=== PATIENT | female | born 1965 | race Caucasian/White ===

== ENCOUNTER 2016-05-31 11:59 | Inpatient (IN) | payer OTHER ==
[~2016-05-31] VITALS: Ht 154.9 cm; Wt 59.6 kg
[2016-05-31] MEDS ORDERED: morphine 4 MG/ML VIAL IV STA (15:18)
[2016-05-31] MEDS ORDERED: ONDANSETRON 4 MG INJ IV STA (15:18)
[2016-05-31] MEDS ORDERED: SOD CHLORIDE 0.9% 1,000 ML IV STA ×2 (15:18→16:32)
[2016-05-31 15:44] LABS: ADD SCAN DIFF NO
[2016-05-31 15:58] LABS: ALBUMIN 3.5 g/dl (3.3-4.9)
[2016-05-31 15:59] LABS: BASOPHILS % 0.2 % (0.0-2.0); EOSINOPHILS # 0.1 10^3/ul (0.0-0.5); EOSINOPHILS % 0.9 % (0.0-7.0); HEMATOCRIT 36.2 % (37.0-47.0); HEMOGLOBIN 11.8 g/dl (12.0-16.0); LYMPHOCYTES # 1.6 10^3/ul (0.8-2.9); LYMPHOCYTES % 19.7 % (15.0-51.0); MEAN CORPUSCULAR HGB CONC 32.6 g/dl (32.0-37.0); MEAN CORPUSCULAR VOLUME 82.8 fl (82.0-101.0); MEAN PLATELET VOLUME 10.7 fl (7.4-10.4); MONOCYTE # 0.5 10^3/ul (0.3-0.9); MONOCYTES % 6.5 % (0.0-11.0); NEUTROPHIL # 5.8 10^3/ul (1.6-7.5); NEUTROPHILS % 72.2 % (39.0-77.0); PLATELET COUNT 246 10^3/UL (140-415); POTASSIUM 4.6 mmol/L (3.5-5.1); RED BLOOD COUNT 4.37 10^6/ul (4.20-5.40); RED CELL DISTRIBUTION WIDTH 12.8 % (11.5-14.5)
[2016-05-31 16:01] LABS: ALBUMIN/GLOBULIN RATIO 0.77; BILIRUBIN,INDIRECT 0.1 mg/dl (0-1.1); BILIRUBIN,TOTAL 0.1 mg/dl (0.2-1.3); CREATININE 0.99 mg/dl (0.44-1.00)
[2016-05-31 16:12] LABS: ADD UMIC YES; URINE BILIRUBIN (Dip) NEGATIVE (NEGATIVE); URINE BLOOD (Dip) 1+ (NEGATIVE); URINE COLOR LT. YELLOW (YELLOW); URINE GLUCOSE (Dip) >=1000 % (NEGATIVE); URINE KETONES (Dip) NEGATIVE (NEGATIVE); URINE LEUKOCYTE ESTERASE (Dip) 1+ (NEGATIVE); URINE NITRITE (Dip) NEGATIVE (NEGATIVE); URINE TOTAL PROTEIN (Dip) 2+ (NEGATIVE); URINE UROBILINOGEN (Dip) 0.2 E.U./dL (0.1-1.0)
[2016-05-31] MEDS ORDERED: SOD CHLORIDE 0.9% 100 ML ONE (16:23)
[2016-05-31] MEDS ORDERED: IOHEXOL 300MG/ML 150 ML BTL ONE (16:23)
[2016-05-31] MEDS ORDERED: INSULIN LISPRO 100 UNIT/ML VIAL SC STA (16:32)
[2016-05-31 16:38] LABS: BACTERIA,URINE FEW; SQUAMOUS EPITHELIAL CELL,UR MODERATE
--- NOTE | 2016-05-31 16:54 | RADRPT ---
PROCEDURE: CT Abdomen and Pelvis with contrast. CLINICAL INDICATION: Abdomen and pelvis pain. Diabetes. TECHNIQUE: CT scan of the abdomen and pelvis with contrast was performed. The patient was scanned following the uncomplicated intravenous administration of 90 cc of Omnipaque-300. Coronal and sagit javed reformatted images were obtained from the axial source images. Images were reviewed on a [employer] PACS workstation. Total exam DLP is 361.99 mGy-cm. CTDIvol is 6.55 mGy. One or more of t he following dose reduction techniques were used: Automated exposure control, adjustment of the mA a nd/or kV according to patient size, use of iterative reconstruction technique. COMPARISON: None. FINDINGS: The lung bases are normal. There is no pleural effusion. The liver is normal in size and attenuation. There is no focal hepatic lesion. The gallbladder is surgically absent with clips noted in the gallbladder bed. There is mild diffuse biliary dilatation with no obstructing lesion visualized. The spleen is normal in size. There is no focal splenic lesion. Both adrenals are normal with no enlargement or mass. There is a cystic structure in the tail of the pancreas measuring 2.6 x 3.1 cm in AP and transverse dimensions with mild surrounding enhancement. The pancreas is otherwise unremarkable. Both kidneys demonstrate normal contrast enhancement. There is gas in the collecting system of the left kidney. There is no renal mass or hydronephrosis. The abdominal aorta is not dilated. There is no retroperitoneal lymphadenopathy or mass. There is no pelvic lymphadenopathy or mass. There is gas within the urinary bladder. There is no gas in the wall of the bladder. The appendix is well seen and appears normal. The bowel and mesentery are normal. There is no free fluid or free gas. There are mild degenerative changes of the spine. There is no fracture or lytic lesion. IMPRESSION: 1. Status post cholecystectomy. 2. Mild diffuse biliary dilatation. Clinical correlation advised. 3. Cystic structure with surrounding enhancement in the tail of the pancreas measuring 2.6 x 3.1 cm . This may be due to a cystic neoplasm or pseudocyst. Clinical correlation advised. 4. Gas in the collecting system of the left kidney and in the bladder consistent with probable emph ysematous pyelonephritis. 5. Normal appendix. 6. Mild degenerative changes of the spine. 7. Otherwise unremarkable study. RPTAT: QQ .Ivan Carlos MD, MD Date Time Electronically viewed and signed by .Ivan Carlos MD, MD on 05/31/2016 16:54 .R/
[2016-05-31] MEDS ORDERED: LEVOFLOXACIN 750MG/D5W (PMX) 150 ML IVPB ONE (17:00)
[2016-05-31] MEDS ORDERED: CEFEPIME 1GM/50 ML (PMX) 50 ML IVPB ONE (17:00)
--- NOTE | 2016-05-31 17:27 | ERA ---
ER Documentation Chief Complaint Date/Time DATE: 05/31/16 TIME: 17:24 Chief Complaint AP, diarrhea, vomiting x 2 days. HPI This is a 50-year-old female with multiple medical complaints. The patient is complaining of 2 days of nausea vomiting with loose stool all nonbloody. Is also complaining of some left flank pain and left mid abdominal pain with dysuria and urinary frequency. No gross hematuria. She says she feels chills and malaise but has not documented a fever. No chest pain shortness of breath cough. ROS All systems reviewed and are negative except as per history of present illness. Medications Home Meds Unable to Obtain Active Prescriptions or Reported Meds Allergies Allergies: Coded Allergies: Unknown: Unable to obtain (Unverified , 05/31/16) PMhx/Soc Medical and Surgical Hx: pt denies Medical Hx, pt denies Surgical Hx Hx Alcohol Use: No Hx Substance Use: No Hx Tobacco Use: No Smoking Status: Never smoker FmHx Family History: No coronary disease Physical Exam Vitals Vital Signs Date Time Temp Pulse Resp B/P Pulse Ox O2 Delivery O2 Flow Rate FiO2 05/31/16 12:26 98.5 93 18 92/59 99 Physical Exam Const: Well-developed, well-nourished Head: Atraumatic, normocephalic Eyes: Normal Conjunctiva, PERRLA, EOMI, normal sclera, no nystagmus ENT: Normal External Ears, Nose and Mouth, moist mucus membranes. Neck: Full range of motion. No meningismus, no lymphadenopathy. Resp: Clear to auscultation bilaterally, no wheezing, rhonchi, rales Cardio: Regular rate and rhythm, no murmurs, S1 S2 present Abd: Soft, mild to moderate tenderness in the left flank and left mid abdomen, non distended. Normal bowel sounds, no guarding or rebound, no pulsitile abdominal masses or bruits Skin: No petechiae or rashes, no ecchymosis , no maculopapular rash Back: No midline or flank tenderness Ext: No cyanosis, or edema, FROM x 4, normal inspection, neurovascularly intact x 4 Neur: Awake and alert, STR 5/5 x 4, sensation intact x 4, no focal findings, cerebellum intact Psych: Normal Mood and Affect Result Diagram: 05/31/16 1542 05/31/16 1542 Results 24 hrs Laboratory Tests Test 05/31/16 14:55 05/31/16 15:42 Urine Bacteria FEW Urine Bilirubin NEGATIVE Urine Clarity SLIGHTLY CLOUDY Urine Color LT. YELLOW Urine Glucose >=1000% Urine Hemoglobin 1+ Urine Ketones NEGATIVE Urine Leukocyte Esterase 1+ Urine Microscopic RBC 2-5/HPF Urine Microscopic WBC >50/HPF Urine Nitrite NEGATIVE Urine Specific Friant <=1.005 Urine Squamous Epithelial Cells MODERATE Urine Total Protein 2+ Urine Urobilinogen 0.2 E.U./dL Urine pH 6.0 Alanine Aminotransferase (ALT/SGPT) 97IU/L Albumin 3.5g/dl Albumin/Globulin Ratio 0.77 Alkaline Phosphatase 149IU/L Anion Gap 14 Aspartate Amino Transf (AST/SGOT) 87IU/L Basophils # 0.010^3/ul Basophils % 0.2% Blood Urea Nitrogen 19mg/dl Calcium Level 9.0mg/dl Carbon Dioxide Level 32mmol/L Chloride Level 85mmol/L Creatinine 0.99mg/dl Direct Bilirubin 0.00mg/dl Eosinophils # 0.110^3/ul Eosinophils % 0.9% Globulin 4.50g/dl Glucose Level 640mg/dl Hematocrit 36.2% Hemoglobin 11.8g/dl Indirect Bilirubin 0.1mg/dl Lymphocytes # 1.610^3/ul Lymphocytes % 19.7% Mean Corpuscular Hemoglobin 27.0pg Mean Corpuscular Hemoglobin Concent 32.6g/dl Mean Corpuscular Volume 82.8fl Mean Platelet Volume 10.7fl Monocytes # 0.510^3/ul Monocytes % 6.5% Neutrophils # 5.810^3/ul Neutrophils % 72.2% Nucleated Red Blood Cells # 0.010^3/ul Nucleated Red Blood Cells % 0.0/100WBC Platelet Count 21894^3/UL Potassium Level 4.6mmol/L Red Blood Count 4.3710^6/ul Red Cell Distribution Width 12.8% Sodium Level 126mmol/L Total Bilirubin 0.1mg/dl Total Protein 8.0g/dl White Blood Count 8.010^3/ul Current Medications Medications (Trade) Dose Ordered Sig/Wilson Route PRN Reason Start Time Stop Time Status Last Admin Dose Admin Sodium Chloride (NS) 1,000 ml @ 1,000 mls/hr Q1H STAT IV 05/31/16 15:18 05/31/16 16:17 DC 05/31/16 15:45 Morphine Sulfate (morphine) 4 mg ONCE STAT IV 05/31/16 15:18 05/31/16 15:19 DC 05/31/16 15:44 Ondansetron HCl (Zofran Inj) 4 mg ONCE STAT IV 05/31/16 15:18 05/31/16 15:19 DC 05/31/16 15:44 IV Flush 10 ml 10 ml STK-MED ONCE .ROUTE 05/31/16 16:23 05/31/16 16:24 DC 05/31/16 16:40 Sodium Chloride (NS) 100 ml @ ud STK-MED ONCE .ROUTE 05/31/16 16:23 05/31/16 16:24 DC 05/31/16 16:40 Iohexol 150 ml 150 ml STK-MED ONCE .ROUTE 05/31/16 16:23 05/31/16 16:24 DC 05/31/16 16:41 Sodium Chloride (NS) 1,000 ml @ 1,000 mls/hr Q1H STAT IV 05/31/16 16:32 05/31/16 17:31 Insulin Human Lispro 12 unit 12 unit ONCE STAT SC 05/31/16 16:32 05/31/16 16:34 DC Levofloxacin/ Dextrose 150 ml @ 100 mls/hr ONCE ONCE IVPB 05/31/16 17:00 05/31/16 18:29 Cefepime HCl (Maxipime 1gm/50 ml (Pmx)) 50 ml @ 100 mls/hr ONCE ONCE IVPB 05/31/16 17:00 05/31/16 17:29 Procedures/MDM PROCEDURE: CT Abdomen and Pelvis with contrast. CLINICAL INDICATION: Abdomen and pelvis pain. Diabetes. TECHNIQUE: CT scan of the abdomen and pelvis with contrast was performed. The patient was scanned following the uncomplicated intravenous administration of 90 cc of Omnipaque-300. Coronal and sagittal reformatted images were obtained from the axial source images. Images were reviewed on a high-resolution PACS workstation. Total exam DLP is 361.99 mGy-cm. CTDIvol is 6.55 mGy. One or more of the following dose reduction techniques were used: Automated exposure control, adjustment of the mA and/or kV according to patient size, use of iterative reconstruction technique. COMPARISON: None. FINDINGS: The lung bases are normal. There is no pleural effusion. The liver is normal in size and attenuation. There is no focal hepatic lesion. The gallbladder is surgically absent with clips noted in the gallbladder bed. There is mild diffuse biliary dilatation with no obstructing lesion visualized. The spleen is normal in size. There is no focal splenic lesion. Both adrenals are normal with no enlargement or mass. There is a cystic structure in the tail of the pancreas measuring 2.6 x 3.1 cm in AP and transverse dimensions with mild surrounding enhancement. The pancreas is otherwise unremarkable. Both kidneys demonstrate normal contrast enhancement. There is gas in the collecting system of the left kidney. There is no renal mass or hydronephrosis. The abdominal aorta is not dilated. There is no retroperitoneal lymphadenopathy or mass. There is no pelvic lymphadenopathy or mass. There is gas within the urinary bladder. There is no gas in the wall of the bladder. The appendix is well seen and appears normal. The bowel and mesentery are normal. There is no free fluid or free gas. There are mild degenerative changes of the spine. There is no fracture or lytic lesion. IMPRESSION: 1. Status post cholecystectomy. 2. Mild diffuse biliary dilatation. Clinical correlation advised. 3. Cystic structure with surrounding enhancement in the tail of the pancreas measuring 2.6 x 3.1 cm. This may be due to a cystic neoplasm or pseudocyst. Clinical correlation advised. 4. Gas in the collecting system of the left kidney and in the bladder consistent with probable emphysematous pyelonephritis. 5. Normal appendix. 6. Mild degenerative changes of the spine. 7. Otherwise unremarkable study. RPTAT: QQ .Ivan Carlos MD, Date Time Electronically viewed and signed by .Ivan Carlos MD, on 05/31/2016 16:54 .R/ CC: SHERI MARTIN DO Patient received IV fluids and antibiotics due to her emphysematous pyelonephritis of the left renal collecting system. Urinalysis is UTI We will admit to the hospital for workup and care of the above Departure Diagnosis: Primary Impression: Emphysematous pyelonephritis of left kidney Condition: Stable SHERI MARTIN DO May 31, 2016 17:27
[2016-05-31] MEDS ORDERED: Discontinue Glyburide, Glipizide, and/or Glimepiride prior to starting Insulin XX ONE (18:30)
[2016-05-31] MEDS ORDERED: NACL 0.9% 3 ML SYG IV SCH (18:30)
[2016-05-31] MEDS ORDERED: BISACODYL (EC) 5 MG TAB PO PRN (18:30)
[2016-05-31] MEDS ORDERED: [UNRECOGNIZED DRUG - REMARK] XX ONE (18:30)
[2016-05-31] MEDS ORDERED: GLUCOSE GEL 15 GRAM TUBE PO PRN ×2 (19:00)
[2016-05-31] MEDS: LEVOFLOXACIN 500MG/D5W (PMX) 100 ML IVPB SCH ×2 (19:00→22:33)
[2016-05-31] MEDS ORDERED: GLUCAGON 1 MG INJ IM PRN (19:00)
[2016-05-31] MEDS ORDERED: DEXTROSE 50% 50 ML SYRINGE IV PRN ×2 (19:00)
[2016-05-31] MEDS ORDERED: GLUCOSE GEL 15 GRAM TUBE BUCCAL PRN (19:00)
--- NOTE | 2016-05-31 19:41 | HP ---
DATE OF ADMISSION: 05/31/2016 TIME OF EVALUATION: 1800. REASON FOR ADMISSION: Abdominal pain, diarrhea, vomiting, dysuria for the past 2 days. CONSULTATIONS: 1. Dr. Guy Cavanaugh, Urology. 2. Dr. Navid Blanco, Infectious Disease. 3. Dr. Lul Rebolledo, General Surgery. HISTORY OF PRESENT ILLNESS: This is a 50-year-old female with past medical history of type 2 diabetes mellitus who also takes insulin for her diabetes control who came to the emergency room with a chief complaint of 2 days of abdominal pain, diarrhea, nonbloody, nonbilious vomiting; dysuria, urinary frequency, fevers, chills, malaise, and poor oral intake. The patient verbalized that she has not been using her insulin for the past 2 days. The patient verbalized that she was using her metformin, though. The patient denied any sick contacts. The patient denied any dyspnea, cough, or shortness of breath. The patient was complaining of bilateral lower extremity cramping. In the emergency room, the patient underwent a CT scan of the abdomen and pelvis that showed a cystic structure with surrounding enhancement in the tail of the pancreas measuring 2.6 x [address] also revealed gas in the collecting system of the left kidney and in the bladder consistent with probable emphysematous pyelonephritis. The patient's urinalysis showed positive leukocyte esterase with urine microscopic WBC of greater than 50. The patient was noticed to have a serum blood glucose of 640. The patient's sodium was 126. In the emergency room, the patient was treated with IV levofloxacin and IV hydration. The patient was also given analgesics and a single dose of Humulin insulin subcutaneous insulin. The ER physician called urology panel for urology evaluation. PAST MEDICAL HISTORY: Type 2 diabetes. PAST SURGICAL HISTORY: Cholecystectomy, . HOME MEDICATIONS: 1. Metformin 500 mg p.o. b.i.d. before breakfast and dinner. 2. Lantus insulin 20 units subcutaneously at bedtime. 3. Humalog insulin 10 units before meals. ALLERGIES: PENICILLIN. SOCIAL HISTORY: The patient lives at home with her family. Denies any use of tobacco, alcohol, or illicit drug use. REVIEW OF SYSTEMS: A 12-point review of systems were made and the review of systems are negative other than what is mentioned in the history of present illness. PHYSICAL EXAMINATION: VITAL SIGNS: Temperature 98.5, pulse rate 87, respiratory rate 14, blood pressure 154/82, oxygen saturation 99% on room air. GENERAL: This is an adequately built female lying in bed in no apparent distress. HEENT: Head normocephalic and atraumatic. Eyes: Anicteric sclerae. Conjunctivae clear. ENT: Nasal septum is midline. Oral mucosa is dry. NECK: Supple. No JVD noticed. RESPIRATORY: Bilaterally clear to auscultation. No adventitious breath sounds heard. No use of accessory muscles of respiration. CARDIAC: Regular rate and rhythm. No murmurs heard. ABDOMEN: Soft. Diffuse tenderness in the left lower quadrant and left upper quadrant. No guarding. GENITOURINARY: Left CVA tenderness. EXTREMITIES: No cyanosis, no clubbing, no edema. Peripheral pulses are palpable. NEUROLOGIC: The patient is awake, alert, and oriented. Cranial nerves are grossly intact. LABORATORY AND DIAGNOSTIC DATA: WBC 8.0, hemoglobin 11.8, hematocrit 36.2, platelet count 246. Sodium 136, potassium 4.6, chloride 85, carbon dioxide 32, anion gap 14, BUN 19, creatinine 0.99, glucose 640, calcium 9.0. Total bilirubin 0.1, AST 87, ALT 97, alkaline phosphatase 149. Urinalysis: Urine nitrite negative, leukocyte esterase 1+, urine microscopic WBC greater than 50, urine glucose greater than 1000, urine total protein 2+. CT scan of the abdomen and pelvis: Status post cholecystectomy. Mild diffuse biliary dilatation. The cystic structure with surrounding enhancement in the tail of the pancreas measuring 2.6 x 3.1 cm. This may be due to cystic neoplasm or pseudocyst. Gas in the collecting system of the left kidney and the bladder consistent with probable emphysematous pyelonephritis. Normal appendix. IMPRESSION: This is a 50-year-old female with past medical history of type 2 diabetes mellitus who came to the emergency room with chief complaint of abdominal pain, dysuria, subjective fevers, chills and she was also found to have evidence of urinary tract infection, possible emphysematous pyelonephritis , along with uncontrolled blood sugars, who will be admitted here for further treatment and evaluation. ASSESSMENT AND PLAN: 1. Suspect urinary tract infection with possible underlying emphysematous pyelonephritis on the left side. The patient will be started on empiric antibiotics. Pancultures will be obtained. The patient will be evaluated by Urology. Infectious disease consult will be called on this patient. The patient currently has no evidence of any septic shock. 2. Abdominal pain. Etiology unclear. Abdominal CT scan showing a 2.6 x 3.1 cm cystic structure in the tail of the pancreas. Pseudocyst versus neoplasm. Pancreatic enzymes levels will be obtained on this patient. A general surgery consult will be obtained on this patient. Stool studies will be ordered on this patient. 3. Type 2 diabetes mellitus, uncontrolled. No evidence of any ketoacidosis. The patient's blood glucose will be treated appropriately. She will be started on sliding scale insulin along with Lantus insulin and basal insulin. Diabetic education consult will be obtained. 4. Transaminitis. Etiology unclear. Will obtain hepatitis serology. We will trend the patient's LFTs. Hepatotoxic drugs will be avoided on this patient. 5. Hyponatremia. Etiology unclear. Probably secondary to urine sodium loss. Urine sodium level will be obtained. The patient will be started on IV normal saline. The patient's sodium will be corrected gradually. PLAN: The patient will be admitted to inpatient setting. The patient will be started on DVT prophylaxis and gastrointestinal prophylaxis. The patient will remain a FULL CODE. Activities will be as tolerated. The rest of the patient's management will be based on the clinical course, the results of diagnostic studies, and inputs from consultants. Based on the patient's clinical presentation, she most probably requires at least 2 midnights' stay for further management and evaluation of her clinical presentation. The case and management of this patient was fully discussed with Dr. Zepeda. Approximately 60 minutes was spent on the history and physical on this patient. RICHELLE ZEPEDA MD, AM/GIORGIO Conf#: [id number] DID#: [id number]
[2016-05-31] MEDS ORDERED: SOD CHLORIDE 0.9% 1,000 ML IV SCH (19:43)
[2016-05-31 19:44] LABS: THYROID STIMULATING HORMONE 1.78 MIU/L (0.465-4.680)
[2016-05-31] MEDS ORDERED: ACETAMINOPHEN 325 MG TAB PO PRN (20:00)
[2016-05-31] MEDS ORDERED: ONDANSETRON 4 MG INJ IV PRN (20:00)
[2016-05-31] MEDS ORDERED: INSULIN GLARGINE [LANtus] 3 ML PEN SC SCH (20:00)
--- NOTE | 2016-05-31 20:29 | CONS ---
DATE OF ADMISSION: 05/31/2016 DATE OF CONSULTATION: 05/31/2016 TYPE OF CONSULTATION: Infectious Disease. REASON FOR CONSULTATION: Antibiotic management. HISTORY OF PRESENT ILLNESS: Misa Davenport is a 50-year-old female with multiple problems who comes in with nausea, vomiting, diarrhea for 2 days. She is complaining of left flank pain and left mid abdominal pain as well as dysuria and urinary frequency. She has chills, but no fever. She denies any history of high blood pressure, diabetes, heart disease or previous surgeries. On admission, he r white count is 8.0, H and H 11.8 and 36.2, platelet count 246,000. BUN and creatinine 19/0.99. H er glucose was 640, so she is way out of control. PAST MEDICAL HISTORY: As noted. FAMILY HISTORY: Noncontributory. SOCIAL HISTORY: She does not smoke, drink or abuse drugs. ALLERGIES: NONE TO PENICILLIN, SULFA OR FOODS. MEDICATIONS: Per chart. REVIEW OF SYSTEMS: As per HPI. PHYSICAL EXAMINATION: GENERAL: The patient is a well-developed, well-nourished female who is alert, responsive, in no acu te distress. VITAL SIGNS: Stable. She is afebrile. SKIN: Without generalized rash. HEENT: Within normal limits. NECK: Supple. LYMPH NODES: None palpable. CHEST: Decreased breath sounds at the bases. HEART: Without murmur or gallop. ABDOMEN: Soft, nontender. She has some mild tenderness in the left flank, left mid abdomen. She h as no organosplenomegaly or masses. EXTREMITIES: Without cyanosis, clubbing, or edema. RECTAL AND GENITAL: Deferred. NEUROLOGIC: No focal neurological abnormalities. Her urinalysis shows 1+ leukocyte esterase, negat tone nitrite, greater than 50 white cells per high-power field. IMPRESSION AND PLAN: She therefore comes in with diabetes out of control and urinary tract infectio n, possible urosepsis. She was started on Levaquin and cefepime. A CT scan of the abdomen and pelv is shows status post cholecystectomy, mild diffuse biliary dilatation, cystic structures with surrou nding enhancement near the tail of the pancreas measuring 2.6 x 3.1, which may be due to a cystic ne oplasm or pseudocyst. Gas in the collecting system of the left kidney consistent with emphysematous pyelonephritis, normal appendix. The patient had Clostridium difficile calcific carcinoembry onic antigen, alphafetoprotein. She had 2 sets of blood cultures done. She had a urine culture ord ered. We will continue her on this current coverage for the time being. I will dictate my findings to the hospitalist. Dictated By: FAUSTINO HERNANDEZ MD, JD/GIORGIO Conf#: [id number] DID#: [id number]
[2016-05-31] MEDS: INSULIN ASPART [NOVOLOG] 3 ML PEN SC SCH (21:00)
[2016-05-31 21:14] VITALS: TEMP 99.8
[2016-05-31 21:30] VITALS: BP 151/72; PULSE 77; RESP 20
[2016-05-31 21:31] VITALS: PULSE 90
[2016-05-31 22:00] VITALS: Ht 154.9 cm; Wt 59.6 kg
[2016-05-31] MEDS: morphine 2 MG INJ IV PRN (22:29)
[2016-05-31] MEDS: ONDANSETRON 4 MG INJ IV PRN (22:29)
[2016-05-31] MEDS: FAMOTIDINE 20 MG TAB PO SCH (22:33)
[2016-05-31] MEDS: SOD CHLORIDE 0.9% 1,000 ML IV SCH (23:02)
[2016-06-01] VITALS (11 sets, daily range): BP systolic 116–152; BP diastolic 62–76; PULSE 72–90; RESP 18–20
[2016-06-01] MEDS ORDERED: LORAZEPAM 2 MG INJ IV ONE (01:30)
[2016-06-01] MEDS: ACCUCHECK AT 2AM (Patients on SS coverage) XX SCH (02:00)
[2016-06-01] MEDS: SOD CHLORIDE 0.9% 1,000 ML IV SCH ×3 (02:21→17:57)
[2016-06-01 07:41] LABS: ADD SCAN DIFF NO; HAAIG REFLEX REFLEX FILED
[2016-06-01 07:56] LABS: BASOPHILS % 0.5 % (0.0-2.0); EOSINOPHILS # 0.1 10^3/ul (0.0-0.5); EOSINOPHILS % 1.4 % (0.0-7.0); HEMATOCRIT 31.1 % (37.0-47.0); HEMOGLOBIN 10.1 g/dl (12.0-16.0); LYMPHOCYTES # 1.6 10^3/ul (0.8-2.9); MEAN CORPUSCULAR HEMOGLOBIN 27.2 pg (29.0-33.0); MEAN CORPUSCULAR HGB CONC 32.5 g/dl (32.0-37.0); MEAN CORPUSCULAR VOLUME 83.6 fl (82.0-101.0); MEAN PLATELET VOLUME 10.6 fl (7.4-10.4); MONOCYTE # 0.4 10^3/ul (0.3-0.9); MONOCYTES % 7.6 % (0.0-11.0); NEUTROPHIL # 3.7 10^3/ul (1.6-7.5); PLATELET COUNT 214 10^3/UL (140-415); RED BLOOD COUNT 3.72 10^6/ul (4.20-5.40); RED CELL DISTRIBUTION WIDTH 12.8 % (11.5-14.5); WHITE BLOOD COUNT 5.8 10^3/ul (4.8-10.8)
[2016-06-01 08:00] LABS: ALBUMIN 2.6 g/dl (3.3-4.9)
[2016-06-01] MEDS ORDERED: INSULIN ASPART [NOVOLOG] 3 ML PEN SC SCH (08:00)
[2016-06-01 08:01] LABS: INR 1.01; POTASSIUM 4.8 mmol/L (3.5-5.1); PROTIME 13.3 Sec (12.2-14.2)
[2016-06-01 08:02] LABS: PARTIAL THROMBOPLASTIN TIME 28.5 Sec (25.0-35.0)
[2016-06-01 08:03] LABS: ALBUMIN/GLOBULIN RATIO 0.74; BILIRUBIN,INDIRECT 0.1 mg/dl (0-1.1); BILIRUBIN,TOTAL 0.1 mg/dl (0.2-1.3); CALCIUM 7.7 mg/dl (8.4-10.2); CHOL/HDL RATIO 4.9 RATIO; CREATININE 0.96 mg/dl (0.44-1.00); MAGNESIUM 1.7 mg/dl (1.7-2.5); TOTAL PROTEIN 6.1 g/dl (6.1-8.1)
[2016-06-01] MEDS: FAMOTIDINE 20 MG TAB PO SCH ×2 (08:51→20:46)
[2016-06-01 08:52] LABS: HEPATITIS B CORE ANTIBODY NEGATIVE (NEGATIVE)
[2016-06-01] MEDS: INSULIN ASPART [NOVOLOG] 3 ML PEN SC SCH ×7 (08:52→20:49)
--- NOTE | 2016-06-01 11:30 | RADRPT ---
PROCEDURE: Retroperitoneal US. CLINICAL INDICATION: Pain, emphysematous pyelonephritis TECHNIQUE: Multiple sonographic images of the kidneys and retroperitoneum were obtained. The imag es were reviewed on a PACS workstation. COMPARISON: 05/31 FINDINGS: The kidneys are normal in size, contour, cortical thickness and cortical echogenicity. The right kidney measures 11.6 cm. The left kidney measures 12 cm. No kidney stones are visualized. There is mild left-sided hydronephrosis. The urinary bladder is only partially distended and not well seen. The visualized portions of the aorta and IVC are within normal limits. RPTAT: AA IMPRESSION: Mild left-sided hydronephrosis. .John Apple MD, MD Date Time Electronically viewed and signed by .John Apple MD, MD on 06/01/2016 11:29 .S/
--- NOTE | 2016-06-01 13:01 | PN ---
Date/Time of Note Date/Time of Note DATE: 06/01/16 TIME: 12:52 Assessment/Plan Lines/Catheters IV Catheter Type (from [facility]): Peripheral IV Ghosh in Place (from [facility]): No Assessment/Plan Chief Complaint/Hosp Course 1. Abdominal pain. DDx: Emphesematous left side pyelonephritis with UTI vs Pancreatic cystic lesion -abx -ID -supportive -w/u of pancreatic lesion 2. Pancreatic 3.1cm cystic tail lesion. DDx: Pseudocyst (hx of ? pancreatitix in 2003) vs serous cystadenoma vs mucinous cystic neoplasm, vs IPMN -MRI with contrast -obtain records from previous hospital 3. DM -nutrition and medication optimization 4. Transaminitis with Hep C + Antibody -gi and medical optimization -monitor trend 5. Anemia -monitor 6. Hyponatremia, hyperglycemia -judicious fluid management -insulin tx -possible bicarb -close monitoring Thank you, Dictation #: [id number] Problems: Subjective 24 Hr Interval Summary No f/c. No n/v. No cp/sob. No cough. No valdovinos/dizzy/visual or neuro changes. Dysuria. Abdominal pain improved. Exam/Review of Systems Vital Signs Vitals Vital Signs Date Time Temp Pulse Resp B/P Pulse Ox O2 Delivery O2 Flow Rate FiO2 06/01/16 12:39 76 06/01/16 08:00 98.2 18 141/76 98 Room Air Intake and Output 05/31/16 05/31/16 06/01/16 15:00 23:00 07:00 Intake Total 2200 ml 1100 ml Balance 2200 ml 1100 ml Exam Constitutional: alert, oriented, No distress Psych: nl mood/affect, No anxiety Head: atraumatic, normocephalic Eyes: EOMI, PERRL, nl conjunctiva, No icteric ENMT: mucosa pink and moist, nl external ears & nose, nl lips & teeth Neck: non-tender, supple, No jvd Respiratory: normal air movement, No congested cough, No labored breathing Cardiovascular: regular rate and rhythm, No edema Gastrointestinal: soft, tender (Min in left side), No distended, No rebound or guarding Musculoskeletal: nl extremities to inspection, nl gait and stance, No joint tenderness Extremities: normal pulses, No calf tenderness, No cyanosis Neurological: nl mental status, nl speech, nl strength Skin: nl turgor, No diaphoresis, No rash or lesions Lymph: nl lymph nodes Results Result Diagram: 06/01/16 0550 06/01/16 0550 HARRISON MEIER MD Jun 01, 2016 13:01
--- NOTE | 2016-06-01 14:21 | PN ---
DATE: 06/01/2016 INFECTIOUS DISEASE PROGRESS NOTE SUBJECTIVE: The patient is awake, sitting comfortably in bed. Denies pain, still has dysuria. Sti ll has some flank pain, no fevers. LABORATORY DATA: No labs this morning. DIAGNOSTICS: A renal ultrasound yesterday revealed mild left-sided hydronephrosis. CT abdomen and pelvis on admission showed mild diffuse biliary dilation, cystic structure with surrounding enhancem ent in the tail of the pancreas measuring 2.6 x 3.1 cm, gas in the collecting system of the left ki dney and bladder consistent with probable emphysematous pyelonephritis. Urinalysis on admission rev ealed positive leukocyte esterase, white blood cell count, a few bacteria. test was negat tone. MICROBIOLOGY: Urine culture growing gram-negative rods. ANTIMICROBIALS: The patient is on IV Levaquin. PHYSICAL EXAMINATION: GENERAL: This is a well-developed, well-nourished, middle-aged woman who is alert, in no d istress. HEENT: Head atraumatic, normocephalic. Sclerae anicteric. Buccal mucosa pink. NECK: Supple, trachea midline. CHEST: Rise symmetrical. Breath sounds clear. HEART: S1, S2. ABDOMEN: Soft. Bowel sounds present. EXTREMITIES: No cyanosis. ASSESSMENT: 1. Acute pyelonephritis with urine culture growing gram-negative rods. 2. Pancreatic mass, rule out neoplasm versus ____ disease. 3. Diabetes. 4. ALLERGY TO PENICILLIN. PLAN: The patient remains stable. We will continue her on current antimicrobials, await for final cultures. Consider surgical evaluation given abnormal CT of the abdomen findings. Dictated By: FOREIGN HERRERA AUD[employer]OVISUAL PRODUCTION SPECIALIST for FAUSTINO HUSSEIN/GIORGIO Conf#: [id number] DID#: [id number]
[2016-06-01] MEDS: ACETAMINOPHEN 325 MG TAB PO PRN (15:31)
[2016-06-01] MEDS: ONDANSETRON 4 MG INJ IV PRN ×2 (15:31→23:22)
--- NOTE | 2016-06-01 16:12 | CONS ---
DATE OF ADMISSION: 05/31/2016 DATE OF CONSULTATION: 05/31/2016 TYPE OF CONSULTATION: Surgical. REFERRING PHYSICIAN: Truong Marrero NP CHIEF COMPLAINT: 1. Abdominal pain. 2. Pyelonephritis, emphysematous. 3. Pancreatic tail cystic lesion, 3.1 cm. HISTORY OF PRESENT ILLNESS: Misa Davenport is a 50-year-old female diabetic, who presents with 2 da ys of left upper quadrant and left lower quadrant and epigastric abdominal pain associated with nonb loody, nonbilious vomiting and nausea. She reports dysuria with fevers, chills, urinary frequency, malaise, and decreased oral intake. She denies any headache or visual changes. She denies any vagi nal discharge or chest pain. No shortness of breath. She does have cramping. No previous history of the same. In the emergency room, she is found to have a low-grade temperature with stable vitals. Her blood w ork shows electrolyte abnormalities, elevated glucose transaminitis with anemia, but normal WBC. No left shift. Coags are normal. Urine is positive for leukocyte esterase and negative for nitrites. Patient had a CT scan of the abdomen and pelvis, identifying biliary mild diffuse dilatation with the cystic structure and surrounding tail of the pancreas measuring 2.6 x 3.1 cm, which could be a cystic neoplasm or pseudocyst. There is gas in the collecting system of the left kidney and in the bladder consistent with probable emphysematous pyelonephritis. Appendix is normal. Degenerati ve changes of the spine. The patient is admitted, and surgical consult is obtained for further eval uation and treatment. PAST MEDICAL HISTORY: 1. History of gallstones. 2. History of probable pancreatitis (unknown if she had pseudocyst back in 2003). 3. Acute abdominal pain. 4. Diffuse biliary dilatation, mild. 5. Emphysematous pyelonephritis. 6. Anemia. 7. UTI. 8. Hyponatremia. 9. Hyperglycemia. 10. Transaminitis. 11. Hepatitis C antibody reactive. 12. Diabetes. PAST SURGICAL HISTORY: 1. Laparoscopic cholecystectomy. 2. Laparoscopic tubal ligation. MEDICATIONS: As per MAR. ALLERGIES: DENIES. SOCIAL HISTORY: Denies alcohol, drugs, or tobacco. FAMILY HISTORY: Noncontributory. REVIEW OF SYSTEMS: No weight changes. A 12-point review of systems negative unless addressed in th e HPI. PHYSICAL EXAMINATION: VITAL SIGNS: T-max 99.8, pulse 87, blood pressure 107/74. GENERAL: No acute distress, slightly uncomfortable appearing. HEENT: Pupils equal, reactive. No scleral icterus. Mucous membranes are somewhat dry. NECK: Supple, no JVD. PULMONARY: Normal respiratory effort. No wheezing. CARDIAC: S1, S2 present, and regular. ABDOMEN: Soft, minimally tender in left lower quadrant. No rebound, no guarding, not rigid. EXTREMITIES: No edema. VASCULAR: Cap refill less than 2 seconds. NEUROLOGIC: Alert, oriented. Moves all 4 extremities grossly. LABORATORY AND RADIOGRAPHIC: As per chart. ASSESSMENT AND PLAN: Misa Davenport is a 50-year-old female with multiple co-morbidities. 1. Abdominal pain. Differential diagnosis is emphysematous pyelonephritis, left-sided pyelonephriti s with urinary tract infection versus pancreatic cystic lesion. Continue antibiotics, IV follow up, supportive care, and workup of pancreatic lesion. 2. Pancreatic 3.1-cm cystic tail lesion with differential diagnosis of pseudocysts, especially with history of pancreatitis in 2004 versus serous cystadenoma versus mucinous cystic neoplasm versus IP MN. Recommend MRI with contrast and obtain records from previous hospital. 3. Diabetes mellitus. Continue nutrition and medication optimization. 4. Transaminitis with hepatitis C positive antibody. Continue GI and medical optimization. Monito r trend. 5. Anemia. Continue to monitor. 6. Hyponatremia with hyperglycemia. Continue judicious fluid management, insulin therapy, possible bicarbonate, and close monitoring. Thank you very much for consulting me in this patient's care. Dictated By: HARRISON BROOKS/GIORGIO Conf#: [id number] DID#: [id number]
--- NOTE | 2016-06-01 16:33 | PN ---
Date/Time of Note Date/Time of Note DATE: 06/01/16 TIME: 16:28 Assessment/Plan VTE Prophylaxis VTE Prophylaxis Intervention: SCD's Lines/Catheters IV [facility] Type [facility] Peripheral IV Urinary Cath still in place: No Assessment/Plan Chief Complaint/Hosp Course Assessment and plan 1. Emphysematous polynephritis. ID following. Continue on antibiotics. Antipyretics for fever. Await urology consultation 2. Cystic structure in detail the pancreas. Pseudocyst versus neoplasm. Surgeon following. Follow-up with MRI of the abdomen. 3. Type 2 diabetes. Continue insulin regimen. Will adjust as needed 4. Transaminitis. Patient with noted history of hepatitis C. Continue to monitor. Patient for outpatient follow-up 5. Anemia. We'll follow-up on iron panel Disposition and plan: Continue antibiotics. Plan for MRI of the abdomen. We'll follow-up with consultants Discussed plan of care with Dr. Sullivan Problems: Subjective 24 Hr Interval Summary Free Text/Dictation Still reports having some left flank pain. Reports having some nausea Exam/Review of Systems Vital Signs Vitals Vital Signs Date Time Temp Pulse Resp B/P Pulse Ox O2 Delivery O2 Flow Rate FiO2 06/01/16 12:39 76 06/01/16 08:00 98.2 18 141/76 98 Room Air Intake and Output 05/31/16 05/31/16 06/01/16 14:59 22:59 06:59 Intake Total 2200 ml 1100 ml Balance 2200 ml 1100 ml Exam General: No acute signs or symptoms of distress Eyes: pupils equal round, Anicteric sclera Neck: Supple nontender, no JVD Cardiac: S1, S2 auscultated, regular rhythm and rate Pulmonary: No coarse rhonchi or breathing auscultated GI: Tender upon palpation of left flank Extremities: No edema bilateral lower extremities Skin: Clean dry and intact Neurologic: Alert to person place and time and situation Results Result Diagram: 06/01/16 0550 06/01/16 0550 Results 24 hrs Laboratory Tests Test 05/31/16 18:48 05/31/16 20:15 05/31/16 22:50 06/01/16 05:50 Amylase Level 51 38 Free Thyroxine 1.76 Hemoglobin A1c Lactic Acid Level 0.8 0.7 Lipase 75 37 Osmolality 294 Thyroid Stimulating Hormone (TSH) 1.780 Vitamin D 1,25-Dihydroxy 17.7 L Bedside Glucose 368 H 176 Activated Partial Thromboplast Time 28.5 Alanine Aminotransferase (ALT/SGPT) 78 H Albumin 2.6 L Albumin/Globulin Ratio 0.74 Alkaline Phosphatase 95 Alpha Fetoprotein 3.32 Anion Gap 12 Aspartate Amino Transf (AST/SGOT) 72 H Basophils # 0.0 Basophils % 0.5 Blood Urea Nitrogen 14 Calcium Level 7.7 L Carbon Dioxide Level 25 Carcinoembryonic Antigen 1.9 Chloride Level 100 # Cholesterol Level 124 Cholesterol/HDL Ratio 4.9 Creatinine 0.96 Direct Bilirubin 0.00 Eosinophils # 0.1 Eosinophils % 1.4 Globulin 3.50 H Glucose Level 278 #H HDL Cholesterol 25 L Hematocrit 31.1 L Hemoglobin 10.1 L Hepatitis B Core Total Antibody NEGATIVE Hepatitis B Surface Antigen NEGATIVE Hepatitis C Antibody REACTIVE H INR International Normalized Ratio 1.01 Indirect Bilirubin 0.1 LDL Cholesterol, Calculated 61 Lymphocytes # 1.6 Lymphocytes % 27.0 Magnesium Level 1.7 Mean Corpuscular Hemoglobin 27.2 L Mean Corpuscular Hemoglobin Concent 32.5 Mean Corpuscular Volume 83.6 Mean Platelet Volume 10.6 H Monocytes # 0.4 Monocytes % 7.6 Neutrophils # 3.7 Neutrophils % 63.0 Nucleated Red Blood Cells # 0.0 Nucleated Red Blood Cells % 0.0 Phosphorus Level 3.0 Platelet Count 214 Potassium Level 4.8 Prothrombin Time 13.3 Prothrombin Time Ratio 1.0 Red Blood Count 3.72 L Red Cell Distribution Width 12.8 Sodium Level 132 L Total Bilirubin 0.1 L Total Protein 6.1 # Triglycerides Level 191 H White Blood Count 5.8 # Test 06/01/16 07:56 06/01/16 12:09 Bedside Glucose 272 H 260 H Medications Medications Current Medications Sodium Chloride (NS) 1,000 ml @ 125 mls/hr Q8H IV Last administered on 12:04; Admin Dose 125 MLS/HR; Start 05/31/16 at 18:21 Ondansetron HCl (Zofran Inj) 4 mg Q6H PRN IV NAUSEA AND/OR VOMITING Last administered on 06/01/16 15:31; Admin Dose 4 MG; Start 05/31/16 at 18:30 Acetaminophen (Tylenol Tab) 650 mg Q6H PRN PO PAIN LEVEL 1-3 OR FEVER Last administered on 06/01/16 15:31; Admin Dose 650 MG; Start 05/31/16 at 18:30 Acetaminophen/ Hydrocodone Bitart ([place] (5/325)) 1 tab Q6H PRN PO MODERATE PAIN LEVEL 4-6; Start 05/31/16 at 18:30 Morphine Sulfate (morphine) 2 mg Q4H PRN IV SEVERE PAIN LEVEL 7-10 Last administered on 05/31/16 22:29; Admin Dose 2 MG; Start 05/31/16 at 18:30 Magnesium Hydroxide (Milk Of Mag) 30 ml DAILY PRN PO CONSTIPATION; Start at 18:30 Bisacodyl (Dulcolax) 5 mg DAILY PRN PO CONSTIPATION; Start 05/31/16 at 18:30 Zolpidem Tartrate (Ambien) 5 mg QHS PRN PO SLEEP; Start 05/31/16 at 18:30 Famotidine 20 mg 20 mg Q12 PO Last administered on 06/01/16 08:51; Admin Dose 20 MG; Start 05/31/16 at 21:00 Levofloxacin/ Dextrose (Levaquin 500mg/ D5W 100 ml (Pmx)) 100 ml @ 100 mls/hr Q24H IVPB ; Start 05/31/16 at 19:00 Miscellaneous Information 1 ea NOTE XX ; Start 05/31/16 at 19:00 Glucose (Glutose) 15 gm Q15M PRN PO DECREASED GLUCOSE; Start 05/31/16 at 19:00 Glucose (Glutose) 22.5 gm Q15M PRN PO DECREASED GLUCOSE; Start 05/31/16 at 19: 00 Dextrose (D50w Syringe) 25 ml Q15M PRN IV DECREASED GLUCOSE; Start 05/31/16 at 19:00 Dextrose (D50w Syringe) 50 ml Q15M PRN IV DECREASED GLUCOSE; Start 05/31/16 at 19:00 Glucagon (Glucagen) 1 mg Q15M PRN IM DECREASED GLUCOSE; Start 05/31/16 at 19:00 Glucose (Glutose) 15 gm Q15M PRN BUCCAL DECREASED GLUCOSE; Start 05/31/16 at 19 :00 Diagnostic Test (Pha) (Accucheck) 1 ea 02 XX ; Start 06/01/16 at 02:00 Hydralazine HCl (Apresoline) 10 mg Q6H PRN IV SBP>160; Start 05/31/16 at 19:00 Influenza Virus Vaccine (Fluzone) 0.5 ml ONCE ONCE IM* ; Start 06/02/16 at 09:00 ; Stop 06/02/16 at 09:01 Insulin Glargine (Lantus) 24 unit DAILY@20 SC ; Start 06/01/16 at 20:00 SUE COBOS Jun 01, 2016 16:33
[2016-06-01] MEDS: LEVOFLOXACIN 500MG/D5W (PMX) 100 ML IVPB SCH (18:46)
[2016-06-01] MEDS: INSULIN GLARGINE [LANtus] 3 ML PEN SC SCH (20:49)
[2016-06-01] MEDS: morphine 2 MG INJ IV PRN (20:50)
[2016-06-01] MEDS: MAGNESIUM HYDROXIDE 30ML CUP PO PRN (20:50)
[2016-06-02] VITALS (9 sets, daily range): BP systolic 128–165; BP diastolic 64–92; PULSE 72–82; RESP 18–20
[2016-06-02] MEDS: ZOLPIDEM 5 MG TAB PO PRN (02:06)
[2016-06-02] MEDS: ACCUCHECK AT 2AM (Patients on SS coverage) XX SCH (02:11)
[2016-06-02] MEDS: SOD CHLORIDE 0.9% 1,000 ML IV SCH ×3 (05:15→17:25)
[2016-06-02 06:21] LABS: ADD SCAN DIFF NO
[2016-06-02 06:28] LABS: BASOPHILS % 0.2 % (0.0-2.0); EOSINOPHILS # 0.1 10^3/ul (0.0-0.5); EOSINOPHILS % 1.9 % (0.0-7.0); HEMATOCRIT 31.4 % (37.0-47.0); HEMOGLOBIN 10.3 g/dl (12.0-16.0); LYMPHOCYTES # 1.7 10^3/ul (0.8-2.9); LYMPHOCYTES % 30.8 % (15.0-51.0); MEAN CORPUSCULAR HEMOGLOBIN 27.5 pg (29.0-33.0); MEAN CORPUSCULAR HGB CONC 32.8 g/dl (32.0-37.0); MEAN CORPUSCULAR VOLUME 83.7 fl (82.0-101.0); MEAN PLATELET VOLUME 10.2 fl (7.4-10.4); MONOCYTE # 0.5 10^3/ul (0.3-0.9); MONOCYTES % 9.1 % (0.0-11.0); NEUTROPHIL # 3.1 10^3/ul (1.6-7.5); NEUTROPHILS % 57.6 % (39.0-77.0); PLATELET COUNT 221 10^3/UL (140-415); RED BLOOD COUNT 3.75 10^6/ul (4.20-5.40); RED CELL DISTRIBUTION WIDTH 12.7 % (11.5-14.5); WHITE BLOOD COUNT 5.4 10^3/ul (4.8-10.8)
[2016-06-02 06:32] LABS: POTASSIUM 4.2 mmol/L (3.5-5.1)
[2016-06-02 06:35] LABS: CALCIUM 8.2 mg/dl (8.4-10.2); CREATININE 0.91 mg/dl (0.44-1.00)
[2016-06-02] MEDS ORDERED: INFLUENZA VIRUS VACCINE 0.5 ML (DISPENSING) IM* ONE (09:00)
[2016-06-02] MEDS: ACETAMINOPHEN 325 MG TAB PO PRN ×2 (09:08→21:23)
[2016-06-02] MEDS: MAGNESIUM HYDROXIDE 30ML CUP PO PRN (09:08)
[2016-06-02] MEDS: FAMOTIDINE 20 MG TAB PO SCH ×2 (09:08→21:23)
[2016-06-02] MEDS: INSULIN ASPART [NOVOLOG] 3 ML PEN SC SCH ×7 (09:13→21:35)
[2016-06-02] MEDS: ONDANSETRON 4 MG INJ IV PRN (12:13)
[2016-06-02] MEDS: morphine 2 MG INJ IV PRN (12:13)
--- NOTE | 2016-06-02 12:49 | PN ---
DATE: 06/02/2016 SUBJECTIVE: The patient is alert, looks comfortable, complaining of constipation. She is in no dis tress. No fevers. Urine culture came back positive for E. coli susceptible to Levaquin and Cipro, resistant to ampicil blu, Keflex, Bactrim. PHYSICAL EXAMINATION: GENERAL: This is a well-nourished, well-developed, middle-aged woman who is alert, in no d istress. HEENT: Head atraumatic, normocephalic. Sclerae anicteric. Buccal mucosa pink. NECK: Supple, trachea midline. CHEST: Rise symmetrical. Breath sounds clear. HEART: S1, S2. ABDOMEN: Soft, bowel sounds present. EXTREMITIES: Without cyanosis. SKIN: Without jaundice, cyanosis. ASSESSMENT: 1. Acute pyelonephritis with urine culture growing Escherichia coli. 2. Systemic inflammatory response syndrome. 3. Pancreatic mass. 4. Diabetes. 5. PENICILLIN ALLERGY. PLAN: The patient remains stable. We are going to keep her on Levaquin. We will order laxatives a nd stool softeners. The patient to be seen by surgery to evaluate pancreatic mass, pending MRI of t he abdomen. Dictated By: FOREIGN HERRERA [employer]ION PICTURE OPERATOR for FAUSTINO HERNANDEZ MD NI/NTS Conf#: [id number] DID#: [id number]
[2016-06-02] MEDS ORDERED: BISACODYL (EC) 5 MG TAB PO ONE (13:00)
--- NOTE | 2016-06-02 15:54 | PN ---
Date/Time of Note Date/Time of Note DATE: 06/02/16 TIME: 15:53 Assessment/Plan VTE Prophylaxis VTE Prophylaxis Intervention: SCD's Lines/Catheters IV [facility] Type (from [facility] Peripheral IV Urinary Cath still in place: No Assessment/Plan Chief Complaint/Hosp Course Assessment and plan 1. Emphysematous polynephritis. ID following. Continue on antibiotics. Antipyretics for fever. Awaiting urology consultation 2. Cystic structure in detail the pancreas. Pseudocyst versus neoplasm. Surgeon following. Follow-up with MRI of the abdomen. 3. Type 2 diabetes. Continue insulin regimen. Will adjust as needed 4. Transaminitis. Patient with noted history of hepatitis C. Continue to monitor. Patient for outpatient follow-up 5. Anemia. We'll follow-up on iron panel Disposition and plan: Continue antibiotics. patient pending MRI of abdomen. Will follow up.l continue inpatient monitoring Discussed plan of care with Dr. Sullivan Problems: Subjective 24 Hr Interval Summary Free Text/Dictation patient for abdominal MRI Exam/Review of Systems Vital Signs Vitals Vital Signs Date Time Temp Pulse Resp B/P Pulse Ox O2 Delivery O2 Flow Rate FiO2 06/02/16 12:11 98.5 74 18 136/79 99 Room Air Intake and Output 06/01/16 06/01/16 06/02/16 15:00 23:00 07:00 Intake Total 1350 ml 1675 ml Balance 1350 ml 1675 ml Exam patient for abdominal MRI Results Result Diagram: 06/02/16 0551 06/02/16 0551 Results 24 hrs Laboratory Tests Test 06/01/16 17:54 06/01/16 20:32 06/02/16 02:02 06/02/16 05:51 Bedside Glucose 234 H 388 H 197 Anion Gap 10 Basophils # 0.0 Basophils % 0.2 Blood Urea Nitrogen 11 Calcium Level 8.2 L Carbon Dioxide Level 29 Chloride Level 103 Creatinine 0.91 Eosinophils # 0.1 Eosinophils % 1.9 Glucose Level 236 H Hematocrit 31.4 L Hemoglobin 10.3 L Lymphocytes # 1.7 Lymphocytes % 30.8 Mean Corpuscular Hemoglobin 27.5 L Mean Corpuscular Hemoglobin Concent 32.8 Mean Corpuscular Volume 83.7 Mean Platelet Volume 10.2 Monocytes # 0.5 Monocytes % 9.1 Neutrophils # 3.1 Neutrophils % 57.6 Nucleated Red Blood Cells # 0.0 Nucleated Red Blood Cells % 0.0 Platelet Count 221 Potassium Level 4.2 Red Blood Count 3.75 L Red Cell Distribution Width 12.7 Sodium Level 138 White Blood Count 5.4 Test 06/02/16 07:27 06/02/16 07:44 06/02/16 12:03 Bedside Glucose 245 H 136 Lab Scanned Report REFERENCE LAB Medications Medications Current Medications Sodium Chloride (NS) 1,000 ml @ 125 mls/hr Q8H IV Last administered on 05:15; Admin Dose 125 MLS/HR; Start 05/31/16 at 18:21 Ondansetron HCl (Zofran Inj) 4 mg Q6H PRN IV NAUSEA AND/OR VOMITING Last administered on 06/02/16 12:13; Admin Dose 4 MG; Start 05/31/16 at 18:30 Acetaminophen (Tylenol Tab) 650 mg Q6H PRN PO PAIN LEVEL 1-3 OR FEVER Last administered on 06/02/16 09:08; Admin Dose 650 MG; Start 05/31/16 at 18:30 Acetaminophen/ Hydrocodone Bitart ([place] (5/325)) 1 tab Q6H PRN PO MODERATE PAIN LEVEL 4-6; Start 05/31/16 at 18:30 Morphine Sulfate (morphine) 2 mg Q4H PRN IV SEVERE PAIN LEVEL 7-10 Last administered on 06/02/16 12:13; Admin Dose 2 MG; Start 05/31/16 at 18:30 Magnesium Hydroxide (Milk Of Mag) 30 ml DAILY PRN PO CONSTIPATION Last administered on 06/02/16 09:08; Admin Dose 30 ML; Start 05/31/16 at 18:30 Zolpidem Tartrate (Ambien) 5 mg QHS PRN PO SLEEP Last administered on 02:06; Admin Dose 5 MG; Start 05/31/16 at 18:30 Famotidine 20 mg 20 mg Q12 PO Last administered on 06/02/16 09:08; Admin Dose 20 MG; Start 05/31/16 at 21:00 Levofloxacin/ Dextrose (Levaquin 500mg/ D5W 100 ml (Pmx)) 100 ml @ 100 mls/hr Q24H IVPB Last administered on 06/01/16 18:46; Admin Dose 100 MLS/HR; Start at 19:00 Miscellaneous Information 1 ea NOTE XX ; Start 05/31/16 at 19:00 Glucose (Glutose) 15 gm Q15M PRN PO DECREASED GLUCOSE; Start 05/31/16 at 19:00 Glucose (Glutose) 22.5 gm Q15M PRN PO DECREASED GLUCOSE; Start 05/31/16 at 19: 00 Dextrose (D50w Syringe) 25 ml Q15M PRN IV DECREASED GLUCOSE; Start 05/31/16 at 19:00 Dextrose (D50w Syringe) 50 ml Q15M PRN IV DECREASED GLUCOSE; Start 05/31/16 at 19:00 Glucagon (Glucagen) 1 mg Q15M PRN IM DECREASED GLUCOSE; Start 05/31/16 at 19:00 Glucose (Glutose) 15 gm Q15M PRN BUCCAL DECREASED GLUCOSE; Start 05/31/16 at 19 :00 Diagnostic Test (Pha) (Accucheck) 1 ea 02 XX Last administered on 06/02/16 02: 11; Admin Dose 1 EA; Start 06/01/16 at 02:00 Hydralazine HCl (Apresoline) 10 mg Q6H PRN IV SBP>160; Start 05/31/16 at 19:00 Insulin Glargine (Lantus) 24 unit DAILY@20 SC Last administered on 06/01/16 20 :49; Admin Dose 24 UNIT; Start 06/01/16 at 20:00 Bisacodyl (Dulcolax) 10 mg DAILY PRN PO CONSTIPATION; Start 06/02/16 at 13:00 Docusate Sodium (Colace) 200 mg DAILY PRN PO CONSTIPATION; Start 06/02/16 at 13 :00 SUE COBOS Jun 02, 2016 15:54
[2016-06-02] MEDS ORDERED: HYDROmorphONE 1 MG/ML SYG IV PRN (16:30)
[2016-06-02] MEDS ORDERED: KETOROLAC 30 MG INJ IV PRN (16:30)
--- NOTE | 2016-06-02 16:51 | RADRPT ---
PROCEDURE: MR Abdomen. CLINICAL INDICATION: Abdominal pain. Pancreatic cystic lesion. Emphysematous pyelonephritis. TECHNIQUE: Multiplanar MRI of the abdomen was performed without the administration of intravenous Gadolinium. prior to and following the intravenous administration of 20 cc of Magnevist. COMPARISON: CT of the abdomen and pelvis from 05/31/2016 FINDINGS: The liver is normal in size and homogeneous in signal intensity and enhancement. There is no eviden ce of enhancing/hypoenhancing lesion. The hepatic and portal veins are patent. The gallbladder has been removed. The common bile duct remaining hepatic ducts are dilated with the common bile duct me asuring approximately 9 ml. The adrenal glands are unremarkable. A cystic structure is seen in the pancreatic tail which demonstrates hyperintense T2 signal and praany pheral rim enhancement. The cystic structure is oval in appearance and measures approximately 3.2 x 1.9 x 2.2 cm in size. No other pancreatic lesion is seen. The kidneys are symmetric in size and homogeneous enhancement. Susceptibility artifact in the left collecting system is seen which corresponds to the gas seen on the CT of the abdomen pelvis from . There is no hydronephrosis. Nonspecific bilateral perinephric soft tissue stranding is se en. The abdominal aorta is normal in caliber. There is no periaortic / retroperitoneal lymphadenopathy. The stomach and visualized small and large intestines are unremarkable. There are no focal inflamma tory changes of the mesentery. There is no mesenteric lymphadenopathy. There is no ascites. There are no bone marrow signal abnormalities. Subcutaneous soft tissues are unremarkable. IMPRESSION: 1. Cystic structure in the pancreatic tail as detailed above. A follow-up in 3-6 months is recommen ded to ensure stability. 2. Susceptibility artifact in the left collecting system which corresponds to the gas seen on the C T of the abdomen and pelvis and is consistent with emphysematous pyelonephritis. 3. Status post cholecystectomy with biliary dilatation which may be physiologic and is again seen. 4. Nonspecific bilateral perinephric soft tissue stranding. RPTAT: HPNM Physician Olaf Date Time Electronically viewed and signed by Physician Olaf on 06/02/2016 16:51 /
[2016-06-02] MEDS: BISACODYL (EC) 5 MG TAB PO PRN (21:23)
[2016-06-02] MEDS: LEVOFLOXACIN 500MG/D5W (PMX) 100 ML IVPB SCH (21:24)
[2016-06-02] MEDS: INSULIN GLARGINE [LANtus] 3 ML PEN SC SCH (21:34)
--- NOTE | 2016-06-02 23:46 | PN ---
Date/Time of Note Date/Time of Note DATE: 06/02/16 TIME: 23:43 Assessment/Plan Lines/Catheters IV C[facility]ter Type (from [facility] Peripheral IV Ghosh in Place (from [facility]): No Assessment/Plan Chief Complaint/Hosp Course 1. Abdominal pain. DDx: Emphesematous left side pyelonephritis with UTI vs Pancreatic cystic lesion. MRI noted. -abx -ID -supportive -w/u of pancreatic lesion 2. Pancreatic 3.1cm cystic tail lesion. DDx: Pseudocyst (hx of ? pancreatitix in 2003) vs serous cystadenoma vs mucinous cystic neoplasm, vs IPMN. MRI noted. -tumor markers -obtain records from previous hospital 3. DM -nutrition and medication optimization 4. Transaminitis with Hep C + Antibody -gi and medical optimization -monitor trend 5. Anemia -monitor 6. Hyponatremia, hyperglycemia -judicious fluid management -insulin tx -possible bicarb -close monitoring Thank you, Problems: Subjective 24 Hr Interval Summary No f/c. No n/v. No cp/sob. No cough. No valdovinos/dizzy/visual or neuro changes. Dysuria improved. Abdominal pain improved. MRI noted. Exam/Review of Systems Vital Signs Vitals Vital Signs Date Time Temp Pulse Resp B/P Pulse Ox O2 Delivery O2 Flow Rate FiO2 06/02/16 20:00 76 06/02/16 16:00 97.7 19 165/92 99 Room Air Intake and Output 06/01/16 06/01/16 06/02/16 15:00 23:00 07:00 Intake Total 1350 ml 1675 ml Balance 1350 ml 1675 ml Exam Free Text/Dictation Constitutional: alert, oriented, No distress Psych: nl mood/affect, No anxiety Head: atraumatic, normocephalic Eyes: EOMI, PERRL, nl conjunctiva, No icteric ENMT: mucosa pink and moist, nl external ears & nose, nl lips & teeth Neck: non-tender, supple, No jvd Respiratory: normal air movement, No congested cough, No labored breathing Cardiovascular: regular rate and rhythm, No edema Gastrointestinal: soft, tender (Min in left side), No distended, No rebound or guarding Musculoskeletal: nl extremities to inspection, nl gait and stance, No joint tenderness Extremities: normal pulses, No calf tenderness, No cyanosis Neurological: nl mental status, nl speech, nl strength Skin: nl turgor, No diaphoresis, No rash or lesions Lymph: nl lymph nodes Results Result Diagram: 06/02/16 0551 06/02/16 0551 HARRISON MEIER MD Jun 02, 2016 23:46
[2016-06-03] VITALS (9 sets, daily range): BP systolic 141–168; BP diastolic 58–85; PULSE 64–82; RESP 16–18
[2016-06-03] MEDS: ACCUCHECK AT 2AM (Patients on SS coverage) XX SCH (02:00)
[2016-06-03] MEDS: SOD CHLORIDE 0.9% 1,000 ML IV SCH ×3 (02:21→18:26)
[2016-06-03] MEDS ORDERED: LORAZEPAM 1 MG TAB PO PRN (03:00)
[2016-06-03] MEDS: MAGNESIUM HYDROXIDE 30ML CUP PO PRN (03:02)
[2016-06-03] MEDS: DOCUSATE SODIUM 100 MG CAP PO PRN (03:04)
[2016-06-03] MEDS: SENNA TAB PO SCH ×2 (03:05→08:25)
[2016-06-03] MEDS ORDERED: INSULIN ASPART [NOVOLOG] 3 ML PEN SC ONE (04:00)
[2016-06-03] MEDS: INSULIN ASPART [NOVOLOG] 3 ML PEN SC SCH ×7 (08:00→21:23)
[2016-06-03] MEDS: FAMOTIDINE 20 MG TAB PO SCH ×2 (08:25→21:24)
[2016-06-03 09:35] LABS: ADD SCAN DIFF NO
[2016-06-03 09:41] LABS: BASOPHILS % 0.4 % (0.0-2.0); EOSINOPHILS # 0.1 10^3/ul (0.0-0.5); EOSINOPHILS % 1.6 % (0.0-7.0); HEMATOCRIT 35.5 % (37.0-47.0); HEMOGLOBIN 11.4 g/dl (12.0-16.0); LYMPHOCYTES # 2.1 10^3/ul (0.8-2.9); LYMPHOCYTES % 38.6 % (15.0-51.0); MEAN CORPUSCULAR HEMOGLOBIN 27.3 pg (29.0-33.0); MEAN CORPUSCULAR HGB CONC 32.1 g/dl (32.0-37.0); MEAN CORPUSCULAR VOLUME 84.9 fl (82.0-101.0); MEAN PLATELET VOLUME 9.6 fl (7.4-10.4); MONOCYTE # 0.5 10^3/ul (0.3-0.9); MONOCYTES % 8.9 % (0.0-11.0); NEUTROPHIL # 2.7 10^3/ul (1.6-7.5); PLATELET COUNT 287 10^3/UL (140-415); RED BLOOD COUNT 4.18 10^6/ul (4.20-5.40); RED CELL DISTRIBUTION WIDTH 12.6 % (11.5-14.5); WHITE BLOOD COUNT 5.5 10^3/ul (4.8-10.8)
[2016-06-03 09:47] LABS: POTASSIUM 3.3 mmol/L (3.5-5.1)
[2016-06-03 09:49] LABS: CREATININE 0.81 mg/dl (0.44-1.00)
[2016-06-03 09:50] LABS: CALCIUM 8.6 mg/dl (8.4-10.2)
[2016-06-03 10:25] LABS: CANCER ANTIGEN 125 17.2 U/ml (0.0-35.0)
[2016-06-03 10:42] LABS: CANCER ANTIGEN 19-9 < 1.4 U/ml (0.0-37.0)
--- NOTE | 2016-06-03 15:05 | CONS ---
Date/Time of Note Date/Time of Note DATE: 06/03/16 TIME: 15:04 Assessment/Plan Assessment/Plan Chief Complaint/Hosp Course SUBJECTIVE: The patient is alert, feels better, no fevers, nad Micro: Urine culture came back positive for E. coli susceptible to Levaquin and Cipro, resistant to ampicillin, Keflex, Bactrim. PHYSICAL EXAMINATION: GENERAL: This is a well-nourished, well-developed, middle-aged woman who is alert, in no distress. HEENT: Head atraumatic, normocephalic. Sclerae anicteric. Buccal mucosa pink. NECK: Supple, trachea midline. CHEST: Rise symmetrical. Breath sounds clear. HEART: S1, S2. ABDOMEN: Soft, bowel sounds present. EXTREMITIES: Without cyanosis. SKIN: Without jaundice, cyanosis. ASSESSMENT: 1. Acute pyelonephritis with urine culture growing Escherichia coli. 2. Systemic inflammatory response syndrome. 3. Pancreatic mass. 4. Diabetes. 5. PENICILLIN ALLERGY. PLAN: The patient remains stable. MRI of the abdomen noted. Continue Levaquin for 2 more weeks, f/u with urology outpatient. DW staff Problems: Consultation Date/Type/Reason Admit Date/Time May 31, 2016 at 19:44 Initial Consult Date Type of Consultation: ID Exam/Review of Systems Vital Signs Vitals Vital Signs Date Time Temp Pulse Resp B/P Pulse Ox O2 Delivery O2 Flow Rate FiO2 06/03/16 12:28 68 06/03/16 05:10 97.8 18 144/58 99 Room Air Intake and Output 06/02/16 06/02/16 06/03/16 15:00 23:00 07:00 Intake Total 1150 ml Balance 1150 ml Results Result Diagram: 06/03/16 0902 06/03/16 0902 Results 24 hrs Laboratory Tests Test 06/02/16 17:18 06/02/16 21:29 06/03/16 03:10 06/03/16 03:43 Bedside Glucose 228 H 286 H 329 H 320 H Test 06/03/16 05:43 06/03/16 08:31 06/03/16 09:02 06/03/16 10:28 Bedside Glucose 172 70 247 H Anion Gap 16 Basophils # 0.0 Basophils % 0.4 Blood Urea Nitrogen 8 CA 125 Antigen 17.2 CA 19-9 Antigen < 1.4 Calcium Level 8.6 Carbon Dioxide Level 28 Chloride Level 98 Creatinine 0.81 Eosinophils # 0.1 Eosinophils % 1.6 Glucose Level 119 # Hematocrit 35.5 L Hemoglobin 11.4 L Lymphocytes # 2.1 Lymphocytes % 38.6 Mean Corpuscular Hemoglobin 27.3 L Mean Corpuscular Hemoglobin Concent 32.1 Mean Corpuscular Volume 84.9 Mean Platelet Volume 9.6 Monocytes # 0.5 Monocytes % 8.9 Neutrophils # 2.7 Neutrophils % 50.0 Nucleated Red Blood Cells # 0.0 Nucleated Red Blood Cells % 0.0 Platelet Count 287 # Potassium Level 3.3 L Red Blood Count 4.18 L Red Cell Distribution Width 12.6 Sodium Level 139 White Blood Count 5.5 Test 06/03/16 11:55 Bedside Glucose 263 H Medications Medications Current Medications Sodium Chloride (NS) 1,000 ml @ 125 mls/hr Q8H IV Last administered on 10:36; Admin Dose 125 MLS/HR; Start 05/31/16 at 18:21 Ondansetron HCl (Zofran Inj) 4 mg Q6H PRN IV NAUSEA AND/OR VOMITING Last administered on 06/02/16 12:13; Admin Dose 4 MG; Start 05/31/16 at 18:30 Acetaminophen (Tylenol Tab) 650 mg Q6H PRN PO PAIN LEVEL 1-3 OR FEVER Last administered on 06/02/16 21:23; Admin Dose 650 MG; Start 05/31/16 at 18:30 Acetaminophen/ Hydrocodone Bitart ([place] (5/325)) 1 tab Q6H PRN PO MODERATE PAIN LEVEL 4-6; Start 05/31/16 at 18:30 Morphine Sulfate (morphine) 2 mg Q4H PRN IV SEVERE PAIN LEVEL 7-10 Last administered on 06/02/16 12:13; Admin Dose 2 MG; Start 05/31/16 at 18:30 Magnesium Hydroxide (Milk Of Mag) 30 ml DAILY PRN PO CONSTIPATION Last administered on 06/03/16 03:02; Admin Dose 30 ML; Start 05/31/16 at 18:30 Zolpidem Tartrate (Ambien) 5 mg QHS PRN PO SLEEP Last administered on 02:06; Admin Dose 5 MG; Start 05/31/16 at 18:30 Famotidine 20 mg 20 mg Q12 PO Last administered on 06/03/16 08:25; Admin Dose 20 MG; Start 05/31/16 at 21:00 Levofloxacin/ Dextrose (Levaquin 500mg/ D5W 100 ml (Pmx)) 100 ml @ 100 mls/hr Q24H IVPB Last administered on 06/02/16 21:24; Admin Dose 100 MLS/HR; Start at 19:00 Miscellaneous Information 1 ea NOTE XX ; Start 05/31/16 at 19:00 Glucose (Glutose) 15 gm Q15M PRN PO DECREASED GLUCOSE; Start 05/31/16 at 19:00 Glucose (Glutose) 22.5 gm Q15M PRN PO DECREASED GLUCOSE; Start 05/31/16 at 19: 00 Dextrose (D50w Syringe) 25 ml Q15M PRN IV DECREASED GLUCOSE; Start 05/31/16 at 19:00 Dextrose (D50w Syringe) 50 ml Q15M PRN IV DECREASED GLUCOSE; Start 05/31/16 at 19:00 Glucagon (Glucagen) 1 mg Q15M PRN IM DECREASED GLUCOSE; Start 05/31/16 at 19:00 Glucose (Glutose) 15 gm Q15M PRN BUCCAL DECREASED GLUCOSE Last administered on 06/03/16 08:21; Admin Dose 15 GM; Start 05/31/16 at 19:00 Diagnostic Test (Pha) (Accucheck) 1 ea 02 XX Last administered on 06/03/16 02: 00; Admin Dose 1 EA; Start 06/01/16 at 02:00 Hydralazine HCl (Apresoline) 10 mg Q6H PRN IV SBP>160; Start 05/31/16 at 19:00 Bisacodyl (Dulcolax) 10 mg DAILY PRN PO CONSTIPATION Last administered on 21:23; Admin Dose 10 MG; Start 06/02/16 at 13:00 Docusate Sodium (Colace) 200 mg DAILY PRN PO CONSTIPATION Last administered on 06/03/16 03:04; Admin Dose 200 MG; Start 06/02/16 at 13:00 Ketorolac Tromethamine (Toradol) 30 mg Q6H PRN IV PAIN; Start 06/02/16 at 16:30 ; Stop 06/05/16 at 16:29 Hydromorphone HCl (Dilaudid) 0.5 mg Q4H PRN IV PAIN; Start 06/02/16 at 16:30 Senna (Senokot) 2 tab DAILY PO Last administered on 06/03/16 08:25; Admin Dose 2 TAB; Start 06/03/16 at 03:00 Lorazepam (Ativan) 1 mg HS PRN PO INSOMNIA Last administered on 06/03/16 03:05 ; Admin Dose 1 MG; Start 06/03/16 at 03:00 Insulin Glargine (Lantus) 30 unit DAILY@20 SC ; Start 06/03/16 at 20:00 FOREIGN HERRERA NP Jun 03, 2016 15:05
[2016-06-03] MEDS: ACETAMINOPHEN 325 MG TAB PO PRN ×2 (15:25→21:24)
[2016-06-03] MEDS ORDERED: POTASSIUM CHLORIDE (SR) 20 MEQ TAB PO STA (15:50)
--- NOTE | 2016-06-03 15:53 | PN ---
Date/Time of Note Date/Time of Note DATE: 06/03/16 TIME: 15:50 Assessment/Plan VTE Prophylaxis VTE Prophylaxis Intervention: SCD's Lines/Catheters IV C[facility] Type (from [facility] Peripheral IV Urinary Cath still in place: No Assessment/Plan Chief Complaint/Hosp Course Assessment and plan 1. Emphysematous pyelonephritis. ID following. Continue on antibiotics. Antipyretics for fever. Appears to be improving 2. Cystic structure in detail the pancreas. Pseudocyst versus neoplasm. Surgeon following. Per MRI of the abdomen: - A cystic structure is seen in the pancreatic tail which demonstrates hyperintense T2 signal and peripheral rim enhancement. The cystic structure is oval in appearance and measures approximately 3.2 x 1.9 x 2.2 cm in size. No other pancreatic lesion is seen. Tumor markers negative. Follow-up with surgeon recommendations. 3. Type 2 diabetes. Remains uncontrolled. We'll adjust regimen 4. Transaminitis. Patient with noted history of hepatitis C. Continue to monitor. Patient for outpatient follow-up 5. Anemia. Monitor H&H. Disposition and plan: Continue antibiotics. With less pain today. Await clinical improvement. Discharge him medically stable and cleared by consultants Discussed plan of care with Dr. Sullivan Problems: Subjective 24 Hr Interval Summary Free Text/Dictation Reports less pain in her abdomen and left flank at this time. Exam/Review of Systems Vital Signs Vitals Vital Signs Date Time Temp Pulse Resp B/P Pulse Ox O2 Delivery O2 Flow Rate FiO2 06/03/16 12:28 68 06/03/16 05:10 97.8 18 144/58 99 Room Air Intake and Output 06/02/16 06/02/16 06/03/16 15:00 23:00 07:00 Intake Total 1150 ml Balance 1150 ml Exam General: No apparent distress noted at this time. Comfortable Eyes: pupils equal round, Anicteric sclera Neck: Supple nontender, no JVD Cardiac: Remains regular rate. S1-S2 auscultated Pulmonary: No wheezing noted GI: Minimally tender on lower abdomen as well as left flank Extremities: No edema bilateral lower extremities Skin: Clean dry and intact Neurologic: Alert to person place and time and situation Results Result Diagram: 06/03/16 0902 06/03/16 0902 Results 24 hrs Laboratory Tests Test 06/02/16 17:18 06/02/16 21:29 06/03/16 03:10 06/03/16 03:43 Bedside Glucose 228 H 286 H 329 H 320 H Test 06/03/16 05:43 06/03/16 08:31 06/03/16 09:02 06/03/16 10:28 Bedside Glucose 172 70 247 H Anion Gap 16 Basophils # 0.0 Basophils % 0.4 Blood Urea Nitrogen 8 CA 125 Antigen 17.2 CA 19-9 Antigen < 1.4 Calcium Level 8.6 Carbon Dioxide Level 28 Chloride Level 98 Creatinine 0.81 Eosinophils # 0.1 Eosinophils % 1.6 Glucose Level 119 # Hematocrit 35.5 L Hemoglobin 11.4 L Lymphocytes # 2.1 Lymphocytes % 38.6 Mean Corpuscular Hemoglobin 27.3 L Mean Corpuscular Hemoglobin Concent 32.1 Mean Corpuscular Volume 84.9 Mean Platelet Volume 9.6 Monocytes # 0.5 Monocytes % 8.9 Neutrophils # 2.7 Neutrophils % 50.0 Nucleated Red Blood Cells # 0.0 Nucleated Red Blood Cells % 0.0 Platelet Count 287 # Potassium Level 3.3 L Red Blood Count 4.18 L Red Cell Distribution Width 12.6 Sodium Level 139 White Blood Count 5.5 Test 06/03/16 11:55 Bedside Glucose 263 H Medications Medications Current Medications Sodium Chloride (NS) 1,000 ml @ 125 mls/hr Q8H IV Last administered on 10:36; Admin Dose 125 MLS/HR; Start 05/31/16 at 18:21 Ondansetron HCl (Zofran Inj) 4 mg Q6H PRN IV NAUSEA AND/OR VOMITING Last administered on 06/02/16 12:13; Admin Dose 4 MG; Start 05/31/16 at 18:30 Acetaminophen (Tylenol Tab) 650 mg Q6H PRN PO PAIN LEVEL 1-3 OR FEVER Last administered on 06/03/16 15:25; Admin Dose 650 MG; Start 05/31/16 at 18:30 Acetaminophen/ Hydrocodone Bitart ([place] (5/325)) 1 tab Q6H PRN PO MODERATE PAIN LEVEL 4-6; Start 05/31/16 at 18:30 Morphine Sulfate (morphine) 2 mg Q4H PRN IV SEVERE PAIN LEVEL 7-10 Last administered on 06/02/16 12:13; Admin Dose 2 MG; Start 05/31/16 at 18:30 Magnesium Hydroxide (Milk Of Mag) 30 ml DAILY PRN PO CONSTIPATION Last administered on 06/03/16 03:02; Admin Dose 30 ML; Start 05/31/16 at 18:30 Zolpidem Tartrate (Ambien) 5 mg QHS PRN PO SLEEP Last administered on 02:06; Admin Dose 5 MG; Start 05/31/16 at 18:30 Famotidine (Pepcid) 20 mg Q12 PO Last administered on 06/03/16 08:25; Admin Dose 20 MG; Start 05/31/16 at 21:00 Miscellaneous Information 1 ea NOTE XX ; Start 05/31/16 at 19:00 Glucose (Glutose) 15 gm Q15M PRN PO DECREASED GLUCOSE; Start 05/31/16 at 19:00 Glucose (Glutose) 22.5 gm Q15M PRN PO DECREASED GLUCOSE; Start 05/31/16 at 19: 00 Dextrose (D50w Syringe) 25 ml Q15M PRN IV DECREASED GLUCOSE; Start 05/31/16 at 19:00 Dextrose (D50w Syringe) 50 ml Q15M PRN IV DECREASED GLUCOSE; Start 05/31/16 at 19:00 Glucagon (Glucagen) 1 mg Q15M PRN IM DECREASED GLUCOSE; Start 05/31/16 at 19:00 Glucose (Glutose) 15 gm Q15M PRN BUCCAL DECREASED GLUCOSE Last administered on 06/03/16 08:21; Admin Dose 15 GM; Start 05/31/16 at 19:00 Diagnostic Test (Pha) (Accucheck) 1 ea 02 XX Last administered on 06/03/16 02: 00; Admin Dose 1 EA; Start 06/01/16 at 02:00 Hydralazine HCl (Apresoline) 10 mg Q6H PRN IV SBP>160; Start 05/31/16 at 19:00 Bisacodyl (Dulcolax) 10 mg DAILY PRN PO CONSTIPATION Last administered on 21:23; Admin Dose 10 MG; Start 06/02/16 at 13:00 Docusate Sodium (Colace) 200 mg DAILY PRN PO CONSTIPATION Last administered on 06/03/16 03:04; Admin Dose 200 MG; Start 06/02/16 at 13:00 Ketorolac Tromethamine (Toradol) 30 mg Q6H PRN IV PAIN; Start 06/02/16 at 16:30 ; Stop 06/05/16 at 16:29 Hydromorphone HCl (Dilaudid) 0.5 mg Q4H PRN IV PAIN; Start 06/02/16 at 16:30 Senna (Senokot) 2 tab DAILY PO Last administered on 06/03/16 08:25; Admin Dose 2 TAB; Start 06/03/16 at 03:00 Lorazepam (Ativan) 1 mg HS PRN PO INSOMNIA Last administered on 06/03/16 03:05 ; Admin Dose 1 MG; Start 06/03/16 at 03:00 Insulin Glargine (Lantus) 30 unit DAILY@20 SC ; Start 06/03/16 at 20:00 Levofloxacin (Levaquin) 500 mg DAILY@06 PO ; Start 06/04/16 at 06:00 SUE COBSO Jun 03, 2016 15:53
[2016-06-03] MEDS ORDERED: INSULIN ASPART [NOVOLOG] 3 ML PEN SC SCH (18:05)
[2016-06-03] MEDS ORDERED: INSULIN GLARGINE [LANtus] 3 ML PEN SC SCH (20:00)
[2016-06-03] MEDS: INSULIN GLARGINE [LANtus] 3 ML PEN SC SCH (21:25)
[2016-06-03] MEDS: HYDROCODONE/APAP (5/325) TAB PO PRN (21:26)
[2016-06-04] VITALS (13 sets, daily range): BP systolic 135–175; BP diastolic 73–91; PULSE 66–86; RESP 16–19
[2016-06-04] MEDS: SOD CHLORIDE 0.9% 1,000 ML IV SCH ×4 (01:55→22:15)
[2016-06-04] MEDS: ACCUCHECK AT 2AM (Patients on SS coverage) XX SCH (02:00)
[2016-06-04] MEDS: LEVOFLOXACIN 500 MG TAB PO SCH (05:32)
[2016-06-04 06:40] LABS: ADD SCAN DIFF NO
[2016-06-04 06:50] LABS: BASOPHILS % 0.4 % (0.0-2.0); EOSINOPHILS # 0.1 10^3/ul (0.0-0.5); EOSINOPHILS % 1.9 % (0.0-7.0); HEMATOCRIT 31.7 % (37.0-47.0); HEMOGLOBIN 10.3 g/dl (12.0-16.0); LYMPHOCYTES # 2.1 10^3/ul (0.8-2.9); LYMPHOCYTES % 43.2 % (15.0-51.0); MEAN CORPUSCULAR HEMOGLOBIN 27.6 pg (29.0-33.0); MEAN CORPUSCULAR HGB CONC 32.5 g/dl (32.0-37.0); MONOCYTE # 0.4 10^3/ul (0.3-0.9); MONOCYTES % 8.3 % (0.0-11.0); NEUTROPHIL # 2.2 10^3/ul (1.6-7.5); NEUTROPHILS % 45.6 % (39.0-77.0); PLATELET COUNT 258 10^3/UL (140-415); RED BLOOD COUNT 3.73 10^6/ul (4.20-5.40); RED CELL DISTRIBUTION WIDTH 12.8 % (11.5-14.5); WHITE BLOOD COUNT 4.8 10^3/ul (4.8-10.8)
[2016-06-04 07:00] LABS: POTASSIUM 4.4 mmol/L (3.5-5.1)
[2016-06-04 07:02] LABS: CREATININE 0.84 mg/dl (0.44-1.00)
[2016-06-04 07:04] LABS: CALCIUM 8.1 mg/dl (8.4-10.2)
[2016-06-04] MEDS: ACETAMINOPHEN 325 MG TAB PO PRN ×3 (08:18→21:05)
[2016-06-04] MEDS: FAMOTIDINE 20 MG TAB PO SCH ×2 (08:18→21:04)
[2016-06-04] MEDS: SENNA TAB PO SCH (08:24)
[2016-06-04] MEDS: INSULIN ASPART [NOVOLOG] 3 ML PEN SC SCH ×7 (08:27→21:11)
[2016-06-04] MEDS: HYDROCODONE/APAP (5/325) TAB PO PRN (09:46)
--- NOTE | 2016-06-04 11:52 | CONS ---
Date/Time of Note Date/Time of Note DATE: 06/04/16 TIME: 11:51 Assessment/Plan Assessment/Plan Chief Complaint/Hosp Course SUBJECTIVE: No acute events, looks comfortable, no fevers PHYSICAL EXAMINATION: GENERAL: This is a well-nourished, well-developed, middle-aged woman who is alert, in no distress. HEENT: Head atraumatic, normocephalic. Sclerae anicteric. Buccal mucosa pink. NECK: Supple, trachea midline. CHEST: Rise symmetrical. Breath sounds clear. HEART: S1, S2. ABDOMEN: Soft, bowel sounds present. EXTREMITIES: Without cyanosis. SKIN: Without jaundice, cyanosis. ASSESSMENT: 1. Acute pyelonephritis with urine culture growing Escherichia coli. 2. Systemic inflammatory response syndrome. 3. Pancreatic mass. 4. Diabetes. 5. PENICILLIN ALLERGY. PLAN: The patient remains stable. MRI of the abdomen noted. Continue Levaquin for 2 more weeks, f/u with urology outpatient. DW staff Problems: Consultation Date/Type/Reason Admit Date/Time May 31, 2016 at 19:44 Type of Consultation: ID Exam/Review of Systems Vital Signs Vitals Vital Signs Date Time Temp Pulse Resp B/P Pulse Ox O2 Delivery O2 Flow Rate FiO2 06/04/16 09:24 80 06/04/16 07:38 98.4 16 175/91 98 06/03/16 05:10 Room Air Intake and Output 06/03/16 06/03/16 06/04/16 15:00 23:00 07:00 Intake Total 450 ml Balance 450 ml Results Result Diagram: 06/04/16 0600 06/04/16 0600 Results 24 hrs Laboratory Tests Test 06/03/16 11:55 06/03/16 16:45 06/03/16 17:15 06/03/16 21:13 Bedside Glucose 263 H 136 139 188 Test 06/04/16 01:57 06/04/16 06:00 06/04/16 08:12 Bedside Glucose 237 H 232 H Anion Gap 11 Basophils # 0.0 Basophils % 0.4 Blood Urea Nitrogen 10 Calcium Level 8.1 L Carbon Dioxide Level 27 Chloride Level 104 Creatinine 0.84 Eosinophils # 0.1 Eosinophils % 1.9 Glucose Level 252 #H Hematocrit 31.7 L Hemoglobin 10.3 L Lymphocytes # 2.1 Lymphocytes % 43.2 Mean Corpuscular Hemoglobin 27.6 L Mean Corpuscular Hemoglobin Concent 32.5 Mean Corpuscular Volume 85.0 Mean Platelet Volume 10.0 Monocytes # 0.4 Monocytes % 8.3 Neutrophils # 2.2 Neutrophils % 45.6 Nucleated Red Blood Cells # 0.0 Nucleated Red Blood Cells % 0.0 Platelet Count 258 Potassium Level 4.4 Red Blood Count 3.73 L Red Cell Distribution Width 12.8 Sodium Level 138 White Blood Count 4.8 Medications Medications Current Medications Sodium Chloride (NS) 1,000 ml @ 125 mls/hr Q8H IV Last administered on 09:46; Admin Dose 125 MLS/HR; Start 05/31/16 at 18:21 Ondansetron HCl (Zofran Inj) 4 mg Q6H PRN IV NAUSEA AND/OR VOMITING Last administered on 06/02/16 12:13; Admin Dose 4 MG; Start 05/31/16 at 18:30 Acetaminophen (Tylenol Tab) 650 mg Q6H PRN PO PAIN LEVEL 1-3 OR FEVER Last administered on 06/04/16 08:18; Admin Dose 650 MG; Start 05/31/16 at 18:30 Acetaminophen/ Hydrocodone Bitart ([place] (5/325)) 1 tab Q6H PRN PO MODERATE PAIN LEVEL 4-6 Last administered on 06/04/16 09:46; Admin Dose 1 TAB; Start at 18:30 Morphine Sulfate (morphine) 2 mg Q4H PRN IV SEVERE PAIN LEVEL 7-10 Last administered on 06/02/16 12:13; Admin Dose 2 MG; Start 05/31/16 at 18:30 Magnesium Hydroxide (Milk Of Mag) 30 ml DAILY PRN PO CONSTIPATION Last administered on 06/03/16 03:02; Admin Dose 30 ML; Start 05/31/16 at 18:30 Zolpidem Tartrate (Ambien) 5 mg QHS PRN PO SLEEP Last administered on 02:06; Admin Dose 5 MG; Start 05/31/16 at 18:30 Famotidine (Pepcid) 20 mg Q12 PO Last administered on 06/04/16 08:18; Admin Dose 20 MG; Start 05/31/16 at 21:00 Miscellaneous Information 1 ea NOTE XX ; Start 05/31/16 at 19:00 Glucose (Glutose) 15 gm Q15M PRN PO DECREASED GLUCOSE; Start 05/31/16 at 19:00 Glucose (Glutose) 22.5 gm Q15M PRN PO DECREASED GLUCOSE; Start 05/31/16 at 19: 00 Dextrose (D50w Syringe) 25 ml Q15M PRN IV DECREASED GLUCOSE; Start 05/31/16 at 19:00 Dextrose (D50w Syringe) 50 ml Q15M PRN IV DECREASED GLUCOSE; Start 05/31/16 at 19:00 Glucagon (Glucagen) 1 mg Q15M PRN IM DECREASED GLUCOSE; Start 05/31/16 at 19:00 Glucose (Glutose) 15 gm Q15M PRN BUCCAL DECREASED GLUCOSE Last administered on 06/03/16 08:21; Admin Dose 15 GM; Start 05/31/16 at 19:00 Diagnostic Test (Pha) (Accucheck) 1 ea 02 XX Last administered on 06/03/16 02: 00; Admin Dose 1 EA; Start 06/01/16 at 02:00 Hydralazine HCl (Apresoline) 10 mg Q6H PRN IV SBP>160; Start 05/31/16 at 19:00 Bisacodyl (Dulcolax) 10 mg DAILY PRN PO CONSTIPATION Last administered on 21:23; Admin Dose 10 MG; Start 06/02/16 at 13:00 Docusate Sodium (Colace) 200 mg DAILY PRN PO CONSTIPATION Last administered on 06/03/16 03:04; Admin Dose 200 MG; Start 06/02/16 at 13:00 Ketorolac Tromethamine (Toradol) 30 mg Q6H PRN IV PAIN; Start 06/02/16 at 16:30 ; Stop 06/05/16 at 16:29 Hydromorphone HCl (Dilaudid) 0.5 mg Q4H PRN IV PAIN; Start 06/02/16 at 16:30 Senna (Senokot) 2 tab DAILY PO Last administered on 06/04/16 08:24; Admin Dose 2 TAB; Start 06/03/16 at 03:00 Lorazepam (Ativan) 1 mg HS PRN PO INSOMNIA Last administered on 06/03/16 03:05 ; Admin Dose 1 MG; Start 3/1/17 at 03:00 Levofloxacin (Levaquin) 500 mg DAILY@06 PO Last administered on 06/04/16 05:32 ; Admin Dose 500 MG; Start 06/04/16 at 06:00 Insulin Glargine (Lantus) 24 unit DAILY@20 SC Last administered on 06/03/16 21: 25; Admin Dose 24 UNIT; Start 06/03/16 at 20:00 FOREIGN HERRERA NP Jun 04, 2016 11:52
--- NOTE | 2016-06-04 16:45 | PN ---
Date/Time of Note Date/Time of Note DATE: 06/04/16 TIME: 16:40 Assessment/Plan Lines/Catheters IV C[facility] Type (from [facility] Peripheral IV Urinary Cath still in place: No Assessment/Plan Chief Complaint/Hosp Course Assessment and plan 1. Emphysematous pyelonephritis. ID following. Continue on antibiotics. Antipyretics for fever. Appears to be improving. 2. Cystic structure in detail the pancreas. Pseudocyst versus neoplasm. Surgeon following. Per MRI of the abdomen: - A cystic structure is seen in the pancreatic tail which demonstrates hyperintense T2 signal and peripheral rim enhancement. The cystic structure is oval in appearance and measures approximately 3.2 x 1.9 x 2.2 cm in size. No other pancreatic lesion is seen. Tumor markers negative. Follow-up with surgeon recommendations. Await input 3. Type 2 diabetes. 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 Slightly better glucose control. We'll adjust as needed 4. Transaminitis. Patient with noted history of hepatitis C. Continue to monitor. Patient for outpatient follow-up. Stable at present 5. Anemia. Monitor H&H. Disposition and plan: Continue with antibiotics. Follow-up with surgeon input. Discharge when cleared by consultants Discussed plan of care with Dr. Sullivan Problems: Subjective 24 Hr Interval Summary Free Text/Dictation with reported headache Exam/Review of Systems Vital Signs Vitals Vital Signs Date Time Temp Pulse Resp B/P Pulse Ox O2 Delivery O2 Flow Rate FiO2 06/04/16 16:04 98.8 76 19 148/74 100 06/03/16 05:10 Room Air Intake and Output 06/03/16 06/03/16 06/04/16 15:00 23:00 07:00 Intake Total 450 ml Balance 450 ml Exam General: With reported headache. Slightly lethargic Eyes: pupils equal round, Anicteric sclera Neck: Supple nontender, no JVD Cardiac: Remains regular rate. S1-S2 auscultated today Pulmonary: No wheezing noted GI: Abdominal pain noted on lower abdominal area. On palpation Extremities: No edema bilateral lower extremities Skin: Clean dry and intact Neurologic: Alert to person place and time and situation Results Result Diagram: 06/04/16 0600 06/04/16 0600 Results 24 hrs Laboratory Tests Test 06/03/16 16:45 06/03/16 17:15 06/03/16 21:13 06/04/16 01:57 Bedside Glucose 136 139 188 237 H Test 06/04/16 06:00 06/04/16 08:12 06/04/16 11:43 Anion Gap 11 Basophils # 0.0 Basophils % 0.4 Blood Urea Nitrogen 10 Calcium Level 8.1 L Carbon Dioxide Level 27 Chloride Level 104 Creatinine 0.84 Eosinophils # 0.1 Eosinophils % 1.9 Glucose Level 252 #H Hematocrit 31.7 L Hemoglobin 10.3 L Lymphocytes # 2.1 Lymphocytes % 43.2 Mean Corpuscular Hemoglobin 27.6 L Mean Corpuscular Hemoglobin Concent 32.5 Mean Corpuscular Volume 85.0 Mean Platelet Volume 10.0 Monocytes # 0.4 Monocytes % 8.3 Neutrophils # 2.2 Neutrophils % 45.6 Nucleated Red Blood Cells # 0.0 Nucleated Red Blood Cells % 0.0 Platelet Count 258 Potassium Level 4.4 Red Blood Count 3.73 L Red Cell Distribution Width 12.8 Sodium Level 138 White Blood Count 4.8 Bedside Glucose 232 H 174 Medications Medications Current Medications Sodium Chloride (NS) 1,000 ml @ 125 mls/hr Q8H IV Last administered on 09:46; Admin Dose 125 MLS/HR; Start 05/31/16 at 18:21 Ondansetron HCl (Zofran Inj) 4 mg Q6H PRN IV NAUSEA AND/OR VOMITING Last administered on 06/02/16 12:13; Admin Dose 4 MG; Start 05/31/16 at 18:30 Acetaminophen (Tylenol Tab) 650 mg Q6H PRN PO PAIN LEVEL 1-3 OR FEVER Last administered on 06/04/16 16:17; Admin Dose 650 MG; Start 05/31/16 at 18:30 Acetaminophen/ Hydrocodone Bitart ([place] (5/325)) 1 tab Q6H PRN PO MODERATE PAIN LEVEL 4-6 Last administered on 06/04/16 09:46; Admin Dose 1 TAB; Start at 18:30 Morphine Sulfate (morphine) 2 mg Q4H PRN IV SEVERE PAIN LEVEL 7-10 Last administered on 06/02/16 12:13; Admin Dose 2 MG; Start 05/31/16 at 18:30 Magnesium Hydroxide (Milk Of Mag) 30 ml DAILY PRN PO CONSTIPATION Last administered on 06/03/16 03:02; Admin Dose 30 ML; Start 05/31/16 at 18:30 Zolpidem Tartrate (Ambien) 5 mg QHS PRN PO SLEEP Last administered on 02:06; Admin Dose 5 MG; Start 05/31/16 at 18:30 Famotidine (Pepcid) 20 mg Q12 PO Last administered on 06/04/16 08:18; Admin Dose 20 MG; Start 05/31/16 at 21:00 Miscellaneous Information 1 ea NOTE XX ; Start 05/31/16 at 19:00 Glucose (Glutose) 15 gm Q15M PRN PO DECREASED GLUCOSE; Start 05/31/16 at 19:00 Glucose (Glutose) 22.5 gm Q15M PRN PO DECREASED GLUCOSE; Start 05/31/16 at 19: 00 Dextrose (D50w Syringe) 25 ml Q15M PRN IV DECREASED GLUCOSE; Start 05/31/16 at 19:00 Dextrose (D50w Syringe) 50 ml Q15M PRN IV DECREASED GLUCOSE; Start 05/31/16 at 19:00 Glucagon (Glucagen) 1 mg Q15M PRN IM DECREASED GLUCOSE; Start 05/31/16 at 19:00 Glucose (Glutose) 15 gm Q15M PRN BUCCAL DECREASED GLUCOSE Last administered on 06/03/16 08:21; Admin Dose 15 GM; Start 05/31/16 at 19:00 Diagnostic Test (Pha) (Accucheck) 1 ea 02 XX Last administered on 06/03/16 02: 00; Admin Dose 1 EA; Start 06/01/16 at 02:00 Hydralazine HCl (Apresoline) 10 mg Q6H PRN IV SBP>160; Start 05/31/16 at 19:00 Bisacodyl (Dulcolax) 10 mg DAILY PRN PO CONSTIPATION Last administered on 21:23; Admin Dose 10 MG; Start 06/02/16 at 13:00 Docusate Sodium (Colace) 200 mg DAILY PRN PO CONSTIPATION Last administered on 06/03/16 03:04; Admin Dose 200 MG; Start 06/02/16 at 13:00 Ketorolac Tromethamine (Toradol) 30 mg Q6H PRN IV PAIN; Start 06/02/16 at 16:30 ; Stop 06/05/16 at 16:29 Hydromorphone HCl (Dilaudid) 0.5 mg Q4H PRN IV PAIN; Start 06/02/16 at 16:30 Senna (Senokot) 2 tab DAILY PO Last administered on 06/04/16 08:24; Admin Dose 2 TAB; Start 06/03/16 at 03:00 Lorazepam (Ativan) 1 mg HS PRN PO INSOMNIA Last administered on 06/03/16 03:05 ; Admin Dose 1 MG; Start 06/03/16 at 03:00 Levofloxacin (Levaquin) 500 mg DAILY@06 PO Last administered on 06/04/16 05:32 ; Admin Dose 500 MG; Start 06/04/16 at 06:00 Insulin Glargine (Lantus) 24 unit DAILY@20 SC Last administered on 06/03/16 21: 25; Admin Dose 24 UNIT; Start 06/03/16 at 20:00 SUE COBOS Jun 04, 2016 16:45
[2016-06-04] MEDS ORDERED: ACET/BUTAL/CAFF TAB PO PRN (17:00)
--- NOTE | 2016-06-04 19:31 | PN ---
Date/Time of Note Date/Time of Note DATE: 06/04/16 TIME: 19:27 Assessment/Plan Lines/Catheters IV Catheter Type (from [facility]): Peripheral IV Ghosh in Place (from [facility]): No Assessment/Plan Chief Complaint/Hosp Course 1. Abdominal pain. DDx: Emphesematous left side pyelonephritis with UTI vs Pancreatic cystic lesion. MRI noted. -abx -ID -supportive -w/u of pancreatic lesion (MRI noted. Tumor markers negative. Hx of pancreatitis ? pseudocyst) > await results from other hospital and follow up imaging 2. Pancreatic 3.1cm cystic tail lesion. DDx: Pseudocyst (hx of ? pancreatitix in 2003) vs serous cystadenoma vs mucinous cystic neoplasm, vs IPMN. MRI noted. -tumor markers negative -obtain records from previous hospital 3. DM -nutrition and medication optimization 4. Transaminitis with Hep C + Antibody -gi and medical optimization -monitor trend 5. Anemia -monitor 6. Hyponatremia, hyperglycemia -judicious fluid management -insulin tx -possible bicarb -close monitoring Thank you, Late entry 06/03 Problems: Subjective 24 Hr Interval Summary No f/c. No n/v. No cp/sob. No cough. No valdovinos/dizzy/visual or neuro changes. Dysuria improved. Abdominal pain improved. MRI noted. Exam/Review of Systems Vital Signs Vitals Vital Signs Date Time Temp Pulse Resp B/P Pulse Ox O2 Delivery O2 Flow Rate FiO2 06/04/16 17:27 71 06/04/16 16:04 98.8 19 148/74 100 06/03/16 05:10 Room Air Intake and Output 06/03/16 06/03/16 06/04/16 15:00 23:00 07:00 Intake Total 450 ml Balance 450 ml Exam Free Text/Dictation Constitutional: alert, oriented, No distress Psych: nl mood/affect, No anxiety Head: atraumatic, normocephalic Eyes: EOMI, PERRL, nl conjunctiva, No icteric ENMT: mucosa pink and moist, nl external ears & nose, nl lips & teeth Neck: non-tender, supple, No jvd Respiratory: normal air movement, No congested cough, No labored breathing Cardiovascular: regular rate and rhythm, No edema Gastrointestinal: soft, tender (Min in left side), No distended, No rebound or guarding Musculoskeletal: nl extremities to inspection, nl gait and stance, No joint tenderness Extremities: normal pulses, No calf tenderness, No cyanosis Neurological: nl mental status, nl speech, nl strength Skin: nl turgor, No diaphoresis, No rash or lesions Lymph: nl lymph nodes Results Result Diagram: 06/04/16 0600 06/04/16 0600 HARRISON MEIER MD Jun 04, 2016 19:31
--- NOTE | 2016-06-04 19:32 | PN ---
Date/Time of Note Date/Time of Note DATE: 06/04/16 TIME: 19:31 Assessment/Plan Lines/Catheters IV Catheter Type (from [facility]): Peripheral IV Ghosh in Place (from [facility]): No Assessment/Plan Chief Complaint/Hosp Course 1. Abdominal pain. DDx: Emphysematous left side pyelonephritis with UTI vs Pancreatic cystic lesion. MRI noted. Improved -abx -supportive -w/u of pancreatic lesion (MRI noted. Tumor markers negative. Hx of pancreatitis ? pseudocyst) > await results from other hospital and follow up imaging 2. Pancreatic 3.1cm cystic tail lesion. DDx: Pseudocyst (hx of ? pancreatitis in 2003) vs serous cystadenoma vs mucinous cystic neoplasm, vs IPMN. MRI noted. -tumor markers negative -obtain records from previous hospital 3. DM -nutrition and medication optimization 4. Transaminitis with Hep C + Antibody -gi and medical optimization -monitor trend 5. Anemia -monitor 6. Hyponatremia, hyperglycemia. Improved. -judicious fluid management -insulin tx -close monitoring Thank you, Problems: Subjective 24 Hr Interval Summary No f/c. No n/v. No cp/sob. No cough. No valdovinos/dizzy/visual or neuro changes. Dysuria improved. Abdominal pain improved. Exam/Review of Systems Vital Signs Vitals Vital Signs Date Time Temp Pulse Resp B/P Pulse Ox O2 Delivery O2 Flow Rate FiO2 06/04/16 17:27 71 06/04/16 16:04 98.8 19 148/74 100 06/03/16 05:10 Room Air Intake and Output 06/03/16 06/03/16 06/04/16 15:00 23:00 07:00 Intake Total 450 ml Balance 450 ml Exam Free Text/Dictation Constitutional: alert, oriented, No distress Psych: nl mood/affect, No anxiety Head: atraumatic, normocephalic Eyes: EOMI, PERRL, nl conjunctiva, No icteric ENMT: mucosa pink and moist, nl external ears & nose, nl lips & teeth Neck: non-tender, supple, No jvd Respiratory: normal air movement, No congested cough, No labored breathing Cardiovascular: regular rate and rhythm, No edema Gastrointestinal: soft, tender (Min in left side), No distended, No rebound or guarding Musculoskeletal: nl extremities to inspection, nl gait and stance, No joint tenderness Extremities: normal pulses, No calf tenderness, No cyanosis Neurological: nl mental status, nl speech, nl strength Skin: nl turgor, No diaphoresis, No rash or lesions Lymph: nl lymph nodes Results Result Diagram: 06/04/16 0600 06/04/16 0600 HARRISON MEIER MD Jun 04, 2016 19:32
[2016-06-04] MEDS: GABAPENTIN 300 MG CAP PO SCH (21:04)
[2016-06-04] MEDS: BISACODYL (EC) 5 MG TAB PO PRN (21:05)
[2016-06-04] MEDS: INSULIN GLARGINE [LANtus] 3 ML PEN SC SCH (21:10)
[2016-06-05] VITALS (11 sets, daily range): BP systolic 114–188; BP diastolic 59–91; PULSE 74–91; RESP 17–20
[2016-06-05] MEDS: ACCUCHECK AT 2AM (Patients on SS coverage) XX SCH (02:00)
[2016-06-05] MEDS: hydrALAzine 20 MG INJ IV PRN ×2 (03:32→22:59)
[2016-06-05] MEDS: LEVOFLOXACIN 500 MG TAB PO SCH (06:05)
[2016-06-05] MEDS: SOD CHLORIDE 0.9% 1,000 ML IV SCH ×3 (06:05→23:10)
[2016-06-05 07:41] LABS: ADD SCAN DIFF NO
[2016-06-05 07:48] LABS: BASOPHILS % 0.4 % (0.0-2.0); EOSINOPHILS # 0.1 10^3/ul (0.0-0.5); HEMATOCRIT 34.1 % (37.0-47.0); HEMOGLOBIN 10.8 g/dl (12.0-16.0); LYMPHOCYTES # 2.1 10^3/ul (0.8-2.9); LYMPHOCYTES % 37.8 % (15.0-51.0); MEAN CORPUSCULAR HEMOGLOBIN 27.1 pg (29.0-33.0); MEAN CORPUSCULAR HGB CONC 31.7 g/dl (32.0-37.0); MEAN CORPUSCULAR VOLUME 85.5 fl (82.0-101.0); MEAN PLATELET VOLUME 9.7 fl (7.4-10.4); MONOCYTE # 0.4 10^3/ul (0.3-0.9); MONOCYTES % 7.8 % (0.0-11.0); NEUTROPHIL # 2.9 10^3/ul (1.6-7.5); NEUTROPHILS % 51.6 % (39.0-77.0); PLATELET COUNT 291 10^3/UL (140-415); RED BLOOD COUNT 3.99 10^6/ul (4.20-5.40); WHITE BLOOD COUNT 5.6 10^3/ul (4.8-10.8)
[2016-06-05] MEDS: INSULIN ASPART [NOVOLOG] 3 ML PEN SC SCH ×7 (08:00→20:48)
[2016-06-05 08:05] LABS: CREATININE 0.89 mg/dl (0.44-1.00)
[2016-06-05 08:06] LABS: CALCIUM 8.7 mg/dl (8.4-10.2)
[2016-06-05] MEDS: GABAPENTIN 300 MG CAP PO SCH ×2 (09:43→20:45)
[2016-06-05] MEDS: FAMOTIDINE 20 MG TAB PO SCH ×2 (09:43→20:45)
[2016-06-05] MEDS: SENNA TAB PO SCH (09:43)
--- NOTE | 2016-06-05 11:02 | CONS ---
Date/Time of Note Date/Time of Note DATE: 06/05/16 TIME: 11:02 Assessment/Plan Assessment/Plan Chief Complaint/Hosp Course SUBJECTIVE: No acute events, alert, feels good, no fevers PHYSICAL EXAMINATION: GENERAL: This is a well-nourished, well-developed, middle-aged woman who is alert, in no distress. HEENT: Head atraumatic, normocephalic. Sclerae anicteric. Buccal mucosa pink. NECK: Supple, trachea midline. CHEST: Rise symmetrical. Breath sounds clear. HEART: S1, S2. ABDOMEN: Soft, bowel sounds present. EXTREMITIES: Without cyanosis. SKIN: Without jaundice, cyanosis. ASSESSMENT: 1. Acute pyelonephritis with urine culture growing Escherichia coli. 2. Systemic inflammatory response syndrome. 3. Pancreatic mass. 4. Diabetes. 5. PENICILLIN ALLERGY. PLAN: The patient remains stable. Continue Levaquin for 2 more weeks, f/u with urology outpatient. [facility] staff Problems: Consultation Date/Type/Reason Admit Date/Time May 31, 2016 at 19:44 Type of Consultation: ID Exam/Review of Systems Vital Signs Vitals Vital Signs Date Time Temp Pulse Resp B/P Pulse Ox O2 Delivery O2 Flow Rate FiO2 06/05/16 08:53 78 06/05/16 07:42 97.8 17 160/80 99 06/03/16 05:10 Room Air Intake and Output 06/04/16 06/04/16 06/05/16 14:59 22:59 06:59 Intake Total 680 ml Balance 680 ml Results Result Diagram: 06/05/16 0655 06/05/16 0655 Results 24 hrs Laboratory Tests Test 06/04/16 11:43 06/04/16 17:12 06/04/16 21:08 06/05/16 03:13 Bedside Glucose 174 118 147 141 Test 06/05/16 06:08 06/05/16 06:55 06/05/16 07:59 Bedside Glucose 120 121 Anion Gap 14 Basophils # 0.0 Basophils % 0.4 Blood Urea Nitrogen 14 Calcium Level 8.7 Carbon Dioxide Level 25 Chloride Level 106 Creatinine 0.89 Eosinophils # 0.1 Eosinophils % 2.0 Glucose Level 125 # Hematocrit 34.1 L Hemoglobin 10.8 L Lymphocytes # 2.1 Lymphocytes % 37.8 Mean Corpuscular Hemoglobin 27.1 L Mean Corpuscular Hemoglobin Concent 31.7 L Mean Corpuscular Volume 85.5 Mean Platelet Volume 9.7 Monocytes # 0.4 Monocytes % 7.8 Neutrophils # 2.9 Neutrophils % 51.6 Nucleated Red Blood Cells # 0.0 Nucleated Red Blood Cells % 0.0 Platelet Count 291 Potassium Level 4.0 Red Blood Count 3.99 L Red Cell Distribution Width 13.0 Sodium Level 141 White Blood Count 5.6 Medications Medications Current Medications Sodium Chloride (NS) 1,000 ml @ 125 mls/hr Q8H IV Last administered on 06:05; Admin Dose 125 MLS/HR; Start 05/31/16 at 18:21 Ondansetron HCl (Zofran Inj) 4 mg Q6H PRN IV NAUSEA AND/OR VOMITING Last administered on 06/02/16 12:13; Admin Dose 4 MG; Start 05/31/16 at 18:30 Acetaminophen (Tylenol Tab) 650 mg Q6H PRN PO PAIN LEVEL 1-3 OR FEVER Last administered on 06/04/16 21:05; Admin Dose 650 MG; Start 05/31/16 at 18:30 Acetaminophen/ Hydrocodone Bitart ([place] (5/325)) 1 tab Q6H PRN PO MODERATE PAIN LEVEL 4-6 Last administered on 06/04/16 09:46; Admin Dose 1 TAB; Start at 18:30 Morphine Sulfate (morphine) 2 mg Q4H PRN IV SEVERE PAIN LEVEL 7-10 Last administered on 06/02/16 12:13; Admin Dose 2 MG; Start 05/31/16 at 18:30 Magnesium Hydroxide (Milk Of Mag) 30 ml DAILY PRN PO CONSTIPATION Last administered on 06/03/16 03:02; Admin Dose 30 ML; Start 05/31/16 at 18:30 Zolpidem Tartrate (Ambien) 5 mg QHS PRN PO SLEEP Last administered on 02:06; Admin Dose 5 MG; Start 05/31/16 at 18:30 Famotidine (Pepcid) 20 mg Q12 PO Last administered on 06/05/16 09:43; Admin Dose 20 MG; Start 05/31/16 at 21:00 Miscellaneous Information 1 ea NOTE XX ; Start 05/31/16 at 19:00 Glucose (Glutose) 15 gm Q15M PRN PO DECREASED GLUCOSE; Start 05/31/16 at 19:00 Glucose (Glutose) 22.5 gm Q15M PRN PO DECREASED GLUCOSE; Start 05/31/16 at 19: 00 Dextrose (D50w Syringe) 25 ml Q15M PRN IV DECREASED GLUCOSE; Start 05/31/16 at 19:00 Dextrose (D50w Syringe) 50 ml Q15M PRN IV DECREASED GLUCOSE; Start 05/31/16 at 19:00 Glucagon (Glucagen) 1 mg Q15M PRN IM DECREASED GLUCOSE; Start 05/31/16 at 19:00 Glucose (Glutose) 15 gm Q15M PRN BUCCAL DECREASED GLUCOSE Last administered on 06/03/16 08:21; Admin Dose 15 GM; Start 05/31/16 at 19:00 Diagnostic Test (Pha) (Accucheck) 1 ea 02 XX Last administered on 06/03/16 02: 00; Admin Dose 1 EA; Start 06/01/16 at 02:00 Hydralazine HCl (Apresoline) 10 mg Q6H PRN IV SBP>160 Last administered on 03:32; Admin Dose 10 MG; Start 05/31/16 at 19:00 Bisacodyl (Dulcolax) 10 mg DAILY PRN PO CONSTIPATION Last administered on 21:05; Admin Dose 10 MG; Start 06/02/16 at 13:00 Docusate Sodium (Colace) 200 mg DAILY PRN PO CONSTIPATION Last administered on 06/03/16 03:04; Admin Dose 200 MG; Start 06/02/16 at 13:00 Ketorolac Tromethamine (Toradol) 30 mg Q6H PRN IV PAIN; Start 06/02/16 at 16:30 ; Stop 06/05/16 at 16:29 Hydromorphone HCl (Dilaudid) 0.5 mg Q4H PRN IV PAIN; Start 06/02/16 at 16:30 Senna (Senokot) 2 tab DAILY PO Last administered on 06/05/16 09:43; Admin Dose 2 TAB; Start 06/03/16 at 03:00 Lorazepam (Ativan) 1 mg HS PRN PO INSOMNIA Last administered on 06/03/16 03:05 ; Admin Dose 1 MG; Start 06/03/16 at 03:00 Levofloxacin (Levaquin) 500 mg DAILY@06 PO Last administered on 06/05/16 06:05 ; Admin Dose 500 MG; Start 06/04/16 at 06:00 Insulin Glargine (Lantus) 24 unit DAILY@20 SC Last administered on 06/04/16 21: 10; Admin Dose 24 UNIT; Start 06/03/16 at 20:00 Acetaminophen/ Butalbital/ Caffeine (Fioricet) 2 tab Q4H PRN PO headache; Start 06/04/16 at 17:00 Gabapentin (Neurontin) 300 mg BID PO Last administered on 06/05/16 09:43; Admin Dose 300 MG; Start 06/04/16 at 21:00 FOREIGN HERRERA NP Jun 05, 2016 11:02
--- NOTE | 2016-06-05 15:51 | PN ---
Date/Time of Note Date/Time of Note DATE: 06/05/16 TIME: 15:48 Assessment/Plan VTE Prophylaxis VTE Prophylaxis Intervention: SCD's Lines/Catheters IV Catheter Type (from [facility]rs): Peripheral IV Urinary Cath still in place: No Assessment/Plan Chief Complaint/Hosp Course Assessment and plan 1. Emphysematous pyelonephritis. ID following. Continue on antibiotics. Antipyretics for fever. Improved 2. Cystic structure in detail the pancreas. Pseudocyst versus neoplasm. Surgeon following. Per MRI of the abdomen: - A cystic structure is seen in the pancreatic tail which demonstrates hyperintense T2 signal and peripheral rim enhancement. The cystic structure is oval in appearance and measures approximately 3.2 x 1.9 x 2.2 cm in size. No other pancreatic lesion is seen. Tumor markers negative. Discussed with surgeon. We'll follow-up with medical records from patient's previous hospitalization at [place] in [place]. For further workup 3. Type 2 diabetes. Continue insulin regimen at this time. 4. Transaminitis. Patient with noted history of hepatitis C. Continue to monitor. Patient for outpatient follow-up. Stable at present 5. Anemia. Monitor H&H. Appears stable Disposition and plan: Continue with antibiotics. Discussed with urologist, urological workup for emphysematous pyelonephritis as outpatient. Discussed with surgeon. Will try to obtain patient's medical records concerning pancreatic cyst from her previous hospitalization at [facility] in [place] Discussed plan of care with Dr. Sullivan Problems: Subjective 24 Hr Interval Summary Free Text/Dictation Does report less abdominal pain and states she feels a little bit better today Exam/Review of Systems Vital Signs Vitals Vital Signs Date Time Temp Pulse Resp B/P Pulse Ox O2 Delivery O2 Flow Rate FiO2 06/05/16 12:38 91 06/05/16 11:37 97.8 19 151/71 98 06/03/16 05:10 Room Air Intake and Output 06/04/16 06/04/16 06/05/16 14:59 22:59 06:59 Intake Total 680 ml Balance 680 ml Exam General: No apparent distress. Does appear more comfortable today Eyes: pupils equal round, Anicteric sclera Neck: Supple nontender, no JVD Cardiac: remains in regular rate Pulmonary: No obvious rhonchi or wheezing GI: Less tenderness on palpation of lower abdomen. Extremities: No edema bilateral lower extremities today Skin: Clean dry and intact Neurologic: Alert to person place and time and situation Results Result Diagram: 06/05/16 0655 06/05/16 0655 Results 24 hrs Laboratory Tests Test 06/04/16 17:12 06/04/16 21:08 06/05/16 03:13 06/05/16 06:08 Bedside Glucose 118 147 141 120 Test 06/05/16 06:55 06/05/16 07:59 06/05/16 12:02 Anion Gap 14 Basophils # 0.0 Basophils % 0.4 Blood Urea Nitrogen 14 Calcium Level 8.7 Carbon Dioxide Level 25 Chloride Level 106 Creatinine 0.89 Eosinophils # 0.1 Eosinophils % 2.0 Glucose Level 125 # Hematocrit 34.1 L Hemoglobin 10.8 L Lymphocytes # 2.1 Lymphocytes % 37.8 Mean Corpuscular Hemoglobin 27.1 L Mean Corpuscular Hemoglobin Concent 31.7 L Mean Corpuscular Volume 85.5 Mean Platelet Volume 9.7 Monocytes # 0.4 Monocytes % 7.8 Neutrophils # 2.9 Neutrophils % 51.6 Nucleated Red Blood Cells # 0.0 Nucleated Red Blood Cells % 0.0 Platelet Count 291 Potassium Level 4.0 Red Blood Count 3.99 L Red Cell Distribution Width 13.0 Sodium Level 141 White Blood Count 5.6 Bedside Glucose 121 345 H Medications Medications Current Medications Sodium Chloride (NS) 1,000 ml @ 125 mls/hr Q8H IV Last administered on 13:07; Admin Dose 125 MLS/HR; Start 05/31/16 at 18:21 Ondansetron HCl (Zofran Inj) 4 mg Q6H PRN IV NAUSEA AND/OR VOMITING Last administered on 06/02/16 12:13; Admin Dose 4 MG; Start 05/31/16 at 18:30 Acetaminophen (Tylenol Tab) 650 mg Q6H PRN PO PAIN LEVEL 1-3 OR FEVER Last administered on 06/04/16 21:05; Admin Dose 650 MG; Start 05/31/16 at 18:30 Acetaminophen/ Hydrocodone Bitart ([place] (5/325)) 1 tab Q6H PRN PO MODERATE PAIN LEVEL 4-6 Last administered on 06/04/16 09:46; Admin Dose 1 TAB; Start at 18:30 Morphine Sulfate (morphine) 2 mg Q4H PRN IV SEVERE PAIN LEVEL 7-10 Last administered on 06/02/16 12:13; Admin Dose 2 MG; Start 05/31/16 at 18:30 Magnesium Hydroxide (Milk Of Mag) 30 ml DAILY PRN PO CONSTIPATION Last administered on 06/03/16 03:02; Admin Dose 30 ML; Start 05/31/16 at 18:30 Zolpidem Tartrate (Ambien) 5 mg QHS PRN PO SLEEP Last administered on 02:06; Admin Dose 5 MG; Start 05/31/16 at 18:30 Famotidine (Pepcid) 20 mg Q12 PO Last administered on 06/05/16 09:43; Admin Dose 20 MG; Start 05/31/16 at 21:00 Miscellaneous Information 1 ea NOTE XX ; Start 05/31/16 at 19:00 Glucose (Glutose) 15 gm Q15M PRN PO DECREASED GLUCOSE; Start 05/31/16 at 19:00 Glucose (Glutose) 22.5 gm Q15M PRN PO DECREASED GLUCOSE; Start 05/31/16 at 19: 00 Dextrose (D50w Syringe) 25 ml Q15M PRN IV DECREASED GLUCOSE; Start 05/31/16 at 19:00 Dextrose (D50w Syringe) 50 ml Q15M PRN IV DECREASED GLUCOSE; Start 05/31/16 at 19:00 Glucagon (Glucagen) 1 mg Q15M PRN IM DECREASED GLUCOSE; Start 05/31/16 at 19:00 Glucose (Glutose) 15 gm Q15M PRN BUCCAL DECREASED GLUCOSE Last administered on 06/03/16 08:21; Admin Dose 15 GM; Start 05/31/16 at 19:00 Diagnostic Test (Pha) (Accucheck) 1 ea 02 XX Last administered on 06/03/16 02: 00; Admin Dose 1 EA; Start 06/01/16 at 02:00 Hydralazine HCl (Apresoline) 10 mg Q6H PRN IV SBP>160 Last administered on 03:32; Admin Dose 10 MG; Start 05/31/16 at 19:00 Bisacodyl (Dulcolax) 10 mg DAILY PRN PO CONSTIPATION Last administered on 21:05; Admin Dose 10 MG; Start 06/02/16 at 13:00 Docusate Sodium (Colace) 200 mg DAILY PRN PO CONSTIPATION Last administered on 06/03/16 03:04; Admin Dose 200 MG; Start 06/02/16 at 13:00 Ketorolac Tromethamine (Toradol) 30 mg Q6H PRN IV PAIN; Start 06/02/16 at 16:30 ; Stop 06/05/16 at 16:29 Hydromorphone HCl (Dilaudid) 0.5 mg Q4H PRN IV PAIN; Start 06/02/16 at 16:30 Senna (Senokot) 2 tab DAILY PO Last administered on 06/05/16 09:43; Admin Dose 2 TAB; Start 06/03/16 at 03:00 Lorazepam (Ativan) 1 mg HS PRN PO INSOMNIA Last administered on 06/03/16 03:05 ; Admin Dose 1 MG; Start 06/03/16 at 03:00 Levofloxacin (Levaquin) 500 mg DAILY@06 PO Last administered on 06/05/16 06:05 ; Admin Dose 500 MG; Start 06/04/16 at 06:00 Insulin Glargine (Lantus) 24 unit DAILY@20 SC Last administered on 06/04/16 21: 10; Admin Dose 24 UNIT; Start 06/03/16 at 20:00 Acetaminophen/ Butalbital/ Caffeine (Fioricet) 2 tab Q4H PRN PO headache; Start 06/04/16 at 17:00 Gabapentin (Neurontin) 300 mg BID PO Last administered on 06/05/16 09:43; Admin Dose 300 MG; Start 06/04/16 at 21:00 SUE COBOS Jun 05, 2016 15:51
[2016-06-05] MEDS: INSULIN GLARGINE [LANtus] 3 ML PEN SC SCH (20:50)
[2016-06-05] MEDS: ACETAMINOPHEN 325 MG TAB PO PRN (23:10)
--- NOTE | 2016-06-05 23:30 | PN ---
Date/Time of Note Date/Time of Note DATE: 06/05/16 TIME: 23:27 Assessment/Plan Lines/Catheters IV Catheter Type (from [facility]): Peripheral IV Ghosh in Place (from [facility]): No Assessment/Plan Chief Complaint/Hosp Course 1. Abdominal pain. DDx: Emphysematous left side pyelonephritis with UTI vs Pancreatic cystic lesion. MRI noted. Improved -abx -supportive -w/u of pancreatic lesion (MRI noted. Tumor markers negative. Hx of pancreatitis ? pseudocyst) > await results from other hospital and follow up imaging 2. Pancreatic 3.1cm cystic tail lesion. DDx: Pseudocyst (hx of ? pancreatitis in 2003) vs serous cystadenoma vs mucinous cystic neoplasm, vs IPMN. MRI noted. -tumor markers negative -obtain records from previous hospital -tx infection 3. DM -nutrition and medication optimization 4. Transaminitis with Hep C + Antibody -gi and medical optimization -monitor trend 5. Anemia -monitor 6. Hyponatremia, hyperglycemia. Improved. -judicious fluid management -insulin tx -close monitoring Thank you, Problems: Subjective 24 Hr Interval Summary No f/c. No n/v. No cp/sob. No cough. No valdovinos/dizzy/visual or neuro changes. Dysuria improved. Abdominal pain improved. Exam/Review of Systems Vital Signs Vitals Vital Signs Date Time Temp Pulse Resp B/P Pulse Ox O2 Delivery O2 Flow Rate FiO2 06/05/16 20:23 91 06/05/16 20:19 97.8 17 188/91 100 06/03/16 05:10 Room Air Intake and Output 06/04/16 06/04/16 06/05/16 15:00 23:00 07:00 Intake Total 680 ml Balance 680 ml Exam Free Text/Dictation Constitutional: alert, oriented, No distress Psych: nl mood/affect, No anxiety Head: atraumatic, normocephalic Eyes: EOMI, PERRL, nl conjunctiva, No icteric ENMT: mucosa pink and moist, nl external ears & nose, nl lips & teeth Neck: non-tender, supple, No jvd Respiratory: normal air movement, No congested cough, No labored breathing Cardiovascular: regular rate and rhythm, No edema Gastrointestinal: soft, tender (Min in left side), No distended, No rebound or guarding Musculoskeletal: nl extremities to inspection, nl gait and stance, No joint tenderness Extremities: normal pulses, No calf tenderness, No cyanosis Neurological: nl mental status, nl speech, nl strength Skin: nl turgor, No diaphoresis, No rash or lesions Lymph: nl lymph nodes Results Result Diagram: 06/05/16 0655 06/05/16 0655 HARRISON MEIER MD Jun 05, 2016 23:30
[2016-06-06] VITALS (12 sets, daily range): BP systolic 114–179; BP diastolic 55–84; PULSE 72–89; RESP 18–20
[2016-06-06] MEDS: ACCUCHECK AT 2AM (Patients on SS coverage) XX SCH (02:00)
[2016-06-06] MEDS: LEVOFLOXACIN 500 MG TAB PO SCH (06:02)
[2016-06-06 07:46] LABS: ADD SCAN DIFF NO
[2016-06-06 07:56] LABS: BASOPHILS % 0.2 % (0.0-2.0); EOSINOPHILS # 0.1 10^3/ul (0.0-0.5); HEMATOCRIT 31.5 % (37.0-47.0); HEMOGLOBIN 10.3 g/dl (12.0-16.0); LYMPHOCYTES # 2.4 10^3/ul (0.8-2.9); LYMPHOCYTES % 44.8 % (15.0-51.0); MEAN CORPUSCULAR HEMOGLOBIN 27.7 pg (29.0-33.0); MEAN CORPUSCULAR HGB CONC 32.7 g/dl (32.0-37.0); MEAN CORPUSCULAR VOLUME 84.7 fl (82.0-101.0); MEAN PLATELET VOLUME 9.6 fl (7.4-10.4); MONOCYTE # 0.4 10^3/ul (0.3-0.9); MONOCYTES % 7.1 % (0.0-11.0); NEUTROPHIL # 2.4 10^3/ul (1.6-7.5); NEUTROPHILS % 45.2 % (39.0-77.0); PLATELET COUNT 289 10^3/UL (140-415); RED BLOOD COUNT 3.72 10^6/ul (4.20-5.40); RED CELL DISTRIBUTION WIDTH 13.2 % (11.5-14.5); WHITE BLOOD COUNT 5.4 10^3/ul (4.8-10.8)
[2016-06-06] MEDS: INSULIN ASPART [NOVOLOG] 3 ML PEN SC SCH ×7 (08:00→21:00)
[2016-06-06 08:02] LABS: POTASSIUM 3.9 mmol/L (3.5-5.1)
[2016-06-06 08:04] LABS: CREATININE 0.81 mg/dl (0.44-1.00)
[2016-06-06 08:05] LABS: CALCIUM 8.6 mg/dl (8.4-10.2)
[2016-06-06] MEDS: ACETAMINOPHEN 325 MG TAB PO PRN (09:20)
[2016-06-06] MEDS: CEFEPIME 1GM/50 ML (PMX) 50 ML IVPB SCH ×2 (09:20→21:47)
[2016-06-06] MEDS: FAMOTIDINE 20 MG TAB PO SCH ×2 (09:21→21:47)
[2016-06-06] MEDS: GABAPENTIN 300 MG CAP PO SCH ×2 (09:21→21:47)
[2016-06-06] MEDS: SENNA TAB PO SCH (09:21)
--- NOTE | 2016-06-06 11:13 | PN ---
Date/Time of Note Date/Time of Note DATE: 06/06/16 TIME: 11:11 Assessment/Plan VTE Prophylaxis VTE Prophylaxis Intervention: SCD's Lines/Catheters IV Catheter Type (from Nrs): Peripheral IV Urinary Cath still in place: No Assessment/Plan Chief Complaint/Hosp Course Assessment and plan 1. Emphysematous pyelonephritis. ID following. Continue on antibiotics. Antipyretics for fever. Improved 2. Cystic structure in detail the pancreas. Pseudocyst versus neoplasm. Surgeon following. Per MRI of the abdomen: - A cystic structure is seen in the pancreatic tail which demonstrates hyperintense T2 signal and peripheral rim enhancement. The cystic structure is oval in appearance and measures approximately 3.2 x 1.9 x 2.2 cm in size. No other pancreatic lesion is seen. Tumor markers negative. Discussed with surgeon. Awaiting patient's medical records from previous hospitalization at [facility] in [place] 3. Type 2 diabetes. Continue insulin regimen at this time. 4. Transaminitis. Patient with noted history of hepatitis C. Continue to monitor. Patient for outpatient follow-up. Stable at present 5. Anemia. Monitor H&H. Appears stable Disposition and plan: Appears improved at this time. Awaiting medical records from previous hospitalization at [facility]. Discharge when cleared by consultants Discussed plan of care with Dr. Sullivan Problems: Subjective 24 Hr Interval Summary Free Text/Dictation Reports feeling better. No reported pain at this time. Exam/Review of Systems Vital Signs Vitals Vital Signs Date Time Temp Pulse Resp B/P Pulse Ox O2 Delivery O2 Flow Rate FiO2 06/06/16 08:23 78 06/06/16 03:35 98.2 18 114/55 96 Room Air Intake and Output 06/05/16 06/05/16 06/06/16 15:00 23:00 07:00 Intake Total 2000 ml Balance 2000 ml Exam General: No apparent distress. Eyes: pupils equal round, Anicteric sclera still Neck: No obvious JVD Cardiac: Regular rate Pulmonary: No obvious rhonchi or wheezing GI: No tenderness on palpation Extremities: No edema bilateral lower extremities today Skin: Clean dry and intact Neurologic: Alert to person place and time and situation Results Result Diagram: 06/06/16 0700 06/06/16 0700 Results 24 hrs Laboratory Tests Test 06/05/16 12:02 06/05/16 17:24 06/05/16 20:47 06/06/16 03:02 Bedside Glucose 345 H 154 158 146 Test 06/06/16 07:00 06/06/16 08:29 Anion Gap 13 Basophils # 0.0 Basophils % 0.2 Blood Urea Nitrogen 14 Calcium Level 8.6 Carbon Dioxide Level 23 Chloride Level 107 Creatinine 0.81 Eosinophils # 0.1 Eosinophils % 2.0 Glucose Level 101 Hematocrit 31.5 L Hemoglobin 10.3 L Lymphocytes # 2.4 Lymphocytes % 44.8 Mean Corpuscular Hemoglobin 27.7 L Mean Corpuscular Hemoglobin Concent 32.7 Mean Corpuscular Volume 84.7 Mean Platelet Volume 9.6 Monocytes # 0.4 Monocytes % 7.1 Neutrophils # 2.4 Neutrophils % 45.2 Nucleated Red Blood Cells # 0.0 Nucleated Red Blood Cells % 0.0 Platelet Count 289 Potassium Level 3.9 Red Blood Count 3.72 L Red Cell Distribution Width 13.2 Sodium Level 139 White Blood Count 5.4 Bedside Glucose 117 Medications Medications Current Medications Sodium Chloride (NS) 1,000 ml @ 125 mls/hr Q8H IV Last administered on 23:10; Admin Dose 125 MLS/HR; Start 05/31/16 at 18:21 Ondansetron HCl (Zofran Inj) 4 mg Q6H PRN IV NAUSEA AND/OR VOMITING Last administered on 06/02/16 12:13; Admin Dose 4 MG; Start 05/31/16 at 18:30 Acetaminophen (Tylenol Tab) 650 mg Q6H PRN PO PAIN LEVEL 1-3 OR FEVER Last administered on 06/06/16 09:20; Admin Dose 650 MG; Start 05/31/16 at 18:30 Acetaminophen/ Hydrocodone Bitart ([place] (5/325)) 1 tab Q6H PRN PO MODERATE PAIN LEVEL 4-6 Last administered on 06/04/16 09:46; Admin Dose 1 TAB; Start at 18:30 Morphine Sulfate (morphine) 2 mg Q4H PRN IV SEVERE PAIN LEVEL 7-10 Last administered on 06/02/16 12:13; Admin Dose 2 MG; Start 05/31/16 at 18:30 Magnesium Hydroxide (Milk Of Mag) 30 ml DAILY PRN PO CONSTIPATION Last administered on 06/03/16 03:02; Admin Dose 30 ML; Start 05/31/16 at 18:30 Zolpidem Tartrate (Ambien) 5 mg QHS PRN PO SLEEP Last administered on 02:06; Admin Dose 5 MG; Start 05/31/16 at 18:30 Famotidine (Pepcid) 20 mg Q12 PO Last administered on 06/06/16 09:21; Admin Dose 20 MG; Start 05/31/16 at 21:00 Miscellaneous Information 1 ea NOTE XX ; Start 05/31/16 at 19:00 Glucose (Glutose) 15 gm Q15M PRN PO DECREASED GLUCOSE; Start 05/31/16 at 19:00 Glucose (Glutose) 22.5 gm Q15M PRN PO DECREASED GLUCOSE; Start 05/31/16 at 19: 00 Dextrose (D50w Syringe) 25 ml Q15M PRN IV DECREASED GLUCOSE; Start 05/31/16 at 19:00 Dextrose (D50w Syringe) 50 ml Q15M PRN IV DECREASED GLUCOSE; Start 05/31/16 at 19:00 Glucagon (Glucagen) 1 mg Q15M PRN IM DECREASED GLUCOSE; Start 05/31/16 at 19:00 Glucose (Glutose) 15 gm Q15M PRN BUCCAL DECREASED GLUCOSE Last administered on 06/03/16 08:21; Admin Dose 15 GM; Start 05/31/16 at 19:00 Diagnostic Test (Pha) (Accucheck) 1 ea 02 XX Last administered on 06/03/16 02: 00; Admin Dose 1 EA; Start 06/01/16 at 02:00 Hydralazine HCl (Apresoline) 10 mg Q6H PRN IV SBP>160 Last administered on 22:59; Admin Dose 10 MG; Start 05/31/16 at 19:00 Bisacodyl (Dulcolax) 10 mg DAILY PRN PO CONSTIPATION Last administered on 21:05; Admin Dose 10 MG; Start 06/02/16 at 13:00 Docusate Sodium (Colace) 200 mg DAILY PRN PO CONSTIPATION Last administered on 06/03/16 03:04; Admin Dose 200 MG; Start 06/02/16 at 13:00 Hydromorphone HCl (Dilaudid) 0.5 mg Q4H PRN IV PAIN; Start 06/02/16 at 16:30 Senna (Senokot) 2 tab DAILY PO Last administered on 06/06/16 09:21; Admin Dose 2 TAB; Start 06/03/16 at 03:00 Lorazepam (Ativan) 1 mg HS PRN PO INSOMNIA Last administered on 06/03/16 03:05 ; Admin Dose 1 MG; Start 06/03/16 at 03:00 Insulin Glargine (Lantus) 24 unit DAILY@20 SC Last administered on 06/05/16 20: 50; Admin Dose 24 UNIT; Start 06/03/16 at 20:00 Acetaminophen/ Butalbital/ Caffeine (Fioricet) 2 tab Q4H PRN PO headache; Start 06/04/16 at 17:00 Gabapentin 300 mg 300 mg BID PO Last administered on 06/06/16 09:21; Admin Dose 300 MG; Start 06/04/16 at 21:00 Cefepime HCl (Maxipime 1gm/50 ml (Pmx)) 50 ml @ 100 mls/hr Q12 IVPB Last administered on 06/06/16 09:20; Admin Dose 100 MLS/HR; Start 06/06/16 at 09:00 SUE COBOS Jun 06, 2016 11:13
[2016-06-06] MEDS: morphine 2 MG INJ IV PRN (20:17)
[2016-06-06] MEDS: INSULIN GLARGINE [LANtus] 3 ML PEN SC SCH (20:21)
[2016-06-06] MEDS: SOD CHLORIDE 0.9% 1,000 ML IV SCH (21:45)
[2016-06-06] MEDS: hydrALAzine 20 MG INJ IV PRN (21:55)
[2016-06-07] VITALS (12 sets, daily range): BP systolic 106–165; BP diastolic 56–84; PULSE 80–97; RESP 17–20
[2016-06-07] MEDS: ZOLPIDEM 5 MG TAB PO PRN ×2 (02:19→22:10)
[2016-06-07] MEDS: ACCUCHECK AT 2AM (Patients on SS coverage) XX SCH (02:21)
[2016-06-07] MEDS: SOD CHLORIDE 0.9% 1,000 ML IV SCH ×3 (02:21→10:18)
[2016-06-07] MEDS: INSULIN ASPART [NOVOLOG] 3 ML PEN SC SCH ×7 (07:59→21:02)
[2016-06-07] MEDS: CEFEPIME 1GM/50 ML (PMX) 50 ML IVPB SCH ×2 (08:46→20:53)
[2016-06-07] MEDS: GABAPENTIN 300 MG CAP PO SCH ×2 (08:46→20:53)
[2016-06-07] MEDS: SENNA TAB PO SCH (08:46)
[2016-06-07] MEDS: FAMOTIDINE 20 MG TAB PO SCH ×2 (08:46→20:53)
--- NOTE | 2016-06-07 14:20 | PN ---
Date/Time of Note Date/Time of Note DATE: 06/07/16 TIME: 14:19 Assessment/Plan VTE Prophylaxis VTE Prophylaxis Intervention: SCD's Lines/Catheters IV [facility] Type ([facility]): Peripheral IV Urinary Cath still in place: No Assessment/Plan Chief Complaint/Hosp Course Assessment and plan 1. Emphysematous pyelonephritis. ID following. Continue on antibiotics. Antipyretics for fever. Improved 2. Cystic structure in detail the pancreas. Pseudocyst versus neoplasm. Surgeon following. Per MRI of the abdomen: - A cystic structure is seen in the pancreatic tail which demonstrates hyperintense T2 signal and peripheral rim enhancement. The cystic structure is oval in appearance and measures approximately 3.2 x 1.9 x 2.2 cm in size. No other pancreatic lesion is seen. Tumor markers negative. Discussed with surgeon. Still Awaiting patient's medical records from previous hospitalization at [facility] in [place] 3. Type 2 diabetes. Continue insulin regimen at this time. 4. Transaminitis. Patient with noted history of hepatitis C. Continue to monitor. Patient for outpatient follow-up. Stable at present 5. Anemia. Monitor H&H. Appears stable Disposition and plan: Appears improved at this time. Still awaiting medical records from patient's previous hospitalization at [facility] in [place]. Await surgeon recommendations. Discharge when cleared by consultants Discussed plan of care with Dr. Sullivan Problems: Subjective 24 Hr Interval Summary Free Text/Dictation Reports no pain at this time. Appears comfortable Exam/Review of Systems Vital Signs Vitals Vital Signs Date Time Temp Pulse Resp B/P Pulse Ox O2 Delivery O2 Flow Rate FiO2 06/07/16 12:35 93 06/07/16 12:12 98.1 17 130/69 96 06/07/16 04:00 Room Air Intake and Output 06/06/16 06/06/16 06/07/16 15:00 23:00 07:00 Intake Total 50 ml 905 ml 1155 ml Balance 50 ml 905 ml 1155 ml Exam General: No apparent distress. Denies any pain Eyes: pupils equal round, Anicteric sclera still Neck: No obvious JVD Cardiac: S1-S2 auscultated today Pulmonary: No adventitious lung sounds GI: No tenderness on palpation Extremities: No edema bilateral lower extremities today Skin: Clean dry and intact Neurologic: Alert to person place and time and situation Results Result Diagram: 06/06/16 0700 06/06/16 0700 Results 24 hrs Laboratory Tests Test 06/06/16 17:14 06/06/16 21:49 06/07/16 02:20 06/07/16 07:34 Bedside Glucose 287 H 115 215 104 Test 06/07/16 12:01 Bedside Glucose 315 H Medications Medications Current Medications Ondansetron HCl (Zofran Inj) 4 mg Q6H PRN IV NAUSEA AND/OR VOMITING Last administered on 06/02/16 12:13; Admin Dose 4 MG; Start 05/31/16 at 18:30 Acetaminophen (Tylenol Tab) 650 mg Q6H PRN PO PAIN LEVEL 1-3 OR FEVER Last administered on 06/06/16 09:20; Admin Dose 650 MG; Start 05/31/16 at 18:30 Acetaminophen/ Hydrocodone Bitart ([place] (5/325)) 1 tab Q6H PRN PO MODERATE PAIN LEVEL 4-6 Last administered on 06/04/16 09:46; Admin Dose 1 TAB; Start at 18:30 Morphine Sulfate (morphine) 2 mg Q4H PRN IV SEVERE PAIN LEVEL 7-10 Last administered on 06/06/16 20:17; Admin Dose 2 MG; Start 05/31/16 at 18:30 Magnesium Hydroxide (Milk Of Mag) 30 ml DAILY PRN PO CONSTIPATION Last administered on 06/03/16 03:02; Admin Dose 30 ML; Start 05/31/16 at 18:30 Zolpidem Tartrate (Ambien) 5 mg QHS PRN PO SLEEP Last administered on 06/07/16 02:19; Admin Dose 5 MG; Start 05/31/16 at 18:30 Famotidine (Pepcid) 20 mg Q12 PO Last administered on 06/07/16 08:46; Admin Dose 20 MG; Start 05/31/16 at 21:00 Miscellaneous Information 1 ea NOTE XX ; Start 05/31/16 at 19:00 Glucose (Glutose) 15 gm Q15M PRN PO DECREASED GLUCOSE; Start 05/31/16 at 19:00 Glucose (Glutose) 22.5 gm Q15M PRN PO DECREASED GLUCOSE; Start 05/31/16 at 19: 00 Dextrose (D50w Syringe) 25 ml Q15M PRN IV DECREASED GLUCOSE; Start 05/31/16 at 19:00 Dextrose (D50w Syringe) 50 ml Q15M PRN IV DECREASED GLUCOSE; Start 05/31/16 at 19:00 Glucagon (Glucagen) 1 mg Q15M PRN IM DECREASED GLUCOSE; Start 05/31/16 at 19:00 Glucose (Glutose) 15 gm Q15M PRN BUCCAL DECREASED GLUCOSE Last administered on 06/03/16 08:21; Admin Dose 15 GM; Start 05/31/16 at 19:00 Diagnostic Test (Pha) (Accucheck) 1 ea 02 XX Last administered on 06/07/16 02: 21; Admin Dose 1 EA; Start 06/01/16 at 02:00 Hydralazine HCl (Apresoline) 10 mg Q6H PRN IV SBP>160 Last administered on 21:55; Admin Dose 10 MG; Start 05/31/16 at 19:00 Bisacodyl (Dulcolax) 10 mg DAILY PRN PO CONSTIPATION Last administered on 21:05; Admin Dose 10 MG; Start 06/02/16 at 13:00 Docusate Sodium (Colace) 200 mg DAILY PRN PO CONSTIPATION Last administered on 06/03/16 03:04; Admin Dose 200 MG; Start 06/02/16 at 13:00 Hydromorphone HCl (Dilaudid) 0.5 mg Q4H PRN IV PAIN; Start 06/02/16 at 16:30 Senna (Senokot) 2 tab DAILY PO Last administered on 06/07/16 08:46; Admin Dose 2 TAB; Start 06/03/16 at 03:00 Lorazepam (Ativan) 1 mg HS PRN PO INSOMNIA Last administered on 06/03/16 03:05 ; Admin Dose 1 MG; Start 06/03/16 at 03:00 Insulin Glargine (Lantus) 24 unit DAILY@20 SC Last administered on 06/06/16 20: 21; Admin Dose 24 UNIT; Start 06/03/16 at 20:00 Acetaminophen/ Butalbital/ Caffeine (Fioricet) 2 tab Q4H PRN PO headache; Start 06/04/16 at 17:00 Gabapentin 300 mg 300 mg BID PO Last administered on 06/07/16 08:46; Admin Dose 300 MG; Start 06/04/16 at 21:00 Cefepime HCl (Maxipime 1gm/50 ml (Pmx)) 50 ml @ 100 mls/hr Q12 IVPB Last administered on 06/07/16 08:46; Admin Dose 100 MLS/HR; Start 06/06/16 at 09:00 SUE COBOS Jun 07, 2016 14:20
[2016-06-07] MEDS: INSULIN GLARGINE [LANtus] 3 ML PEN SC SCH (21:01)
--- NOTE | 2016-06-07 23:31 | PN ---
Date/Time of Note Date/Time of Note DATE: 06/06/16 TIME: 23:28 Assessment/Plan Lines/Catheters IV Catheter Type (from [facility]): Peripheral IV Ghosh in Place (from [facility]): No Assessment/Plan Chief Complaint/Hosp Course 1. Abdominal pain. DDx: Emphysematous left side pyelonephritis with UTI vs Pancreatic cystic lesion. MRI noted. Improved -abx -supportive -w/u of pancreatic lesion (MRI noted. Tumor markers negative. Hx of pancreatitis ? pseudocyst) > await results from other hospital and follow up imaging 2. Pancreatic 3.1cm cystic tail lesion. DDx: Pseudocyst (hx of ? pancreatitis in 2003) vs serous cystadenoma vs mucinous cystic neoplasm, vs IPMN. MRI noted. -tumor markers negative -awaiting records from previous hospital 3. DM -nutrition and medication optimization 4. Transaminitis with Hep C + Antibody -gi and medical optimization -monitor trend 5. Anemia -monitor 6. Hyponatremia, hyperglycemia. Improved. -judicious fluid management -insulin tx -close monitoring Thank you, Late entry 06/06 Problems: Subjective 24 Hr Interval Summary No f/c. No n/v. No cp/sob. No cough. No valdovinos/dizzy/visual or neuro changes. No dysuria. Min abdominal pain. Exam/Review of Systems Vital Signs Vitals Vital Signs Date Time Temp Pulse Resp B/P Pulse Ox O2 Delivery O2 Flow Rate FiO2 06/07/16 20:00 86 06/07/16 19:40 98.2 20 165/84 100 06/07/16 04:00 Room Air Intake and Output 06/06/16 06/06/16 06/07/16 15:00 23:00 07:00 Intake Total 50 ml 905 ml 1155 ml Balance 50 ml 905 ml 1155 ml Exam Free Text/Dictation Constitutional: alert, oriented, No distress Psych: nl mood/affect, No anxiety Head: atraumatic, normocephalic Eyes: EOMI, PERRL, nl conjunctiva, No icteric ENMT: mucosa pink and moist, nl external ears & nose, nl lips & teeth Neck: non-tender, supple, No jvd Respiratory: normal air movement, No congested cough, No labored breathing Cardiovascular: regular rate and rhythm, No edema Gastrointestinal: soft, tender (Min in left side), No distended, No rebound or guarding Musculoskeletal: nl extremities to inspection, nl gait and stance, No joint tenderness Extremities: normal pulses, No calf tenderness, No cyanosis Neurological: nl mental status, nl speech, nl strength Skin: nl turgor, No diaphoresis, No rash or lesions Lymph: nl lymph nodes Results Result Diagram: 06/06/16 0700 06/06/16 0700 HARRISON MEIER MD Jun 07, 2016 23:31
--- NOTE | 2016-06-07 23:39 | PN ---
Date/Time of Note Date/Time of Note DATE: 06/07/16 TIME: 23:32 Assessment/Plan Lines/Catheters IV Catheter Type (from [facility]): Peripheral IV Ghosh in Place (from [facility]): No Assessment/Plan Chief Complaint/Hosp Course 1. Abdominal pain. DDx: Emphysematous left side pyelonephritis with UTI vs Pancreatic cystic lesion. MRI noted. Improved -abx -supportive -w/u of pancreatic lesion (MRI noted. Tumor markers negative. Hx of pancreatitis ? pseudocyst) > await results from other hospital and follow up imaging 2. Pancreatic 3.1cm cystic tail lesion. DDx: Pseudocyst (hx of ? pancreatitis in 2003) vs serous cystadenoma vs mucinous cystic neoplasm, vs IPMN. MRI noted. -tumor markers negative -awaiting records from previous hospital 3. DM -nutrition and medication optimization 4. Transaminitis with Hep C + Antibody -gi and medical optimization -monitor trend 5. Anemia -monitor 6. Hyponatremia, hyperglycemia. Improved. -judicious fluid management -insulin tx -close monitoring Thank you, Problems: Subjective 24 Hr Interval Summary No f/c. No n/v. No cp/sob. No cough. No valdovinos/dizzy/visual or neuro changes. No dysuria. Min abdominal pain. Exam/Review of Systems Vital Signs Vitals Vital Signs Date Time Temp Pulse Resp B/P Pulse Ox O2 Delivery O2 Flow Rate FiO2 06/07/16 20:00 86 06/07/16 19:40 98.2 20 165/84 100 06/07/16 04:00 Room Air Intake and Output 06/06/16 06/06/16 06/07/16 15:00 23:00 07:00 Intake Total 50 ml 905 ml 1155 ml Balance 50 ml 905 ml 1155 ml Exam Free Text/Dictation Constitutional: alert, oriented, No distress Psych: nl mood/affect, No anxiety Head: atraumatic, normocephalic Eyes: EOMI, PERRL, nl conjunctiva, No icteric ENMT: mucosa pink and moist, nl external ears & nose, nl lips & teeth Neck: non-tender, supple, No jvd Respiratory: normal air movement, No congested cough, No labored breathing Cardiovascular: regular rate and rhythm, No edema Gastrointestinal: soft, tender (Min in left side), No distended, No rebound or guarding Musculoskeletal: nl extremities to inspection, nl gait and stance, No joint tenderness Extremities: normal pulses, No calf tenderness, No cyanosis Neurological: nl mental status, nl speech, nl strength Skin: nl turgor, No diaphoresis, No rash or lesions Lymph: nl lymph nodes Results Result Diagram: 06/06/16 0700 06/06/16 0700 HARRISON MEIER MD Jun 07, 2016 23:39
[2016-06-08] VITALS (11 sets, daily range): BP systolic 107–177; BP diastolic 58–97; PULSE 78–92; RESP 15–18
[2016-06-08] MEDS: ACCUCHECK AT 2AM (Patients on SS coverage) XX SCH (02:00)
[2016-06-08 06:46] LABS: ADD SCAN DIFF NO
[2016-06-08 06:49] LABS: BASOPHILS % 0.3 % (0.0-2.0); EOSINOPHILS # 0.1 10^3/ul (0.0-0.5); EOSINOPHILS % 1.4 % (0.0-7.0); HEMATOCRIT 33.3 % (37.0-47.0); HEMOGLOBIN 10.8 g/dl (12.0-16.0); LYMPHOCYTES # 2.1 10^3/ul (0.8-2.9); LYMPHOCYTES % 32.7 % (15.0-51.0); MEAN CORPUSCULAR HEMOGLOBIN 27.7 pg (29.0-33.0); MEAN CORPUSCULAR HGB CONC 32.4 g/dl (32.0-37.0); MEAN CORPUSCULAR VOLUME 85.4 fl (82.0-101.0); MEAN PLATELET VOLUME 9.4 fl (7.4-10.4); MONOCYTE # 0.5 10^3/ul (0.3-0.9); MONOCYTES % 7.4 % (0.0-11.0); NEUTROPHIL # 3.7 10^3/ul (1.6-7.5); NEUTROPHILS % 57.6 % (39.0-77.0); PLATELET COUNT 290 10^3/UL (140-415); RED CELL DISTRIBUTION WIDTH 13.4 % (11.5-14.5); WHITE BLOOD COUNT 6.5 10^3/ul (4.8-10.8)
[2016-06-08 07:33] LABS: POTASSIUM 4.3 mmol/L (3.5-5.1)
[2016-06-08 07:35] LABS: CREATININE 0.77 mg/dl (0.44-1.00)
[2016-06-08 07:51] LABS: CALCIUM 8.7 mg/dl (8.4-10.2)
[2016-06-08] MEDS: morphine 2 MG INJ IV PRN (08:04)
[2016-06-08] MEDS: FAMOTIDINE 20 MG TAB PO SCH ×2 (08:12→20:15)
[2016-06-08] MEDS: SENNA TAB PO SCH (08:12)
[2016-06-08] MEDS: GABAPENTIN 300 MG CAP PO SCH ×2 (08:12→20:15)
[2016-06-08] MEDS: INSULIN ASPART [NOVOLOG] 3 ML PEN SC SCH ×7 (08:19→20:22)
[2016-06-08] MEDS: CEFEPIME 1GM/50 ML (PMX) 50 ML IVPB SCH (09:12)
[2016-06-08] MEDS ORDERED: LEVOFLOXACIN 500 MG TAB PO ONE (13:00)
--- NOTE | 2016-06-08 13:40 | PN ---
DATE: SUBJECTIVE: Patient is alert, sitting up in a chair, complaining of lower quadrant pain and states that she has constipation and has not been able to have bowel movements. No hematuria. Per staff, her urine is concentrated with some whitish coloring. ANTIMICROBIALS: Cefepime, status post Levaquin. LABORATORY DATA: WBC 6.5, no shift, no bands. BUN 20, creatinine 0.77. PHYSICAL EXAMINATION: GENERAL: Well-developed, middle-aged woman, who is alert, in no distress. HEENT: Head atraumatic, normocephalic. Sclerae anicteric. Buccal mucosa pink. NECK: Supple, trachea midline. CHEST: Rise symmetrical. Breath sounds clear. HEART: S1, S2. ABDOMEN: Soft. Bowel tones present. EXTREMITIES: Without cyanosis. ASSESSMENT: 1. Acute pyelonephritis with urine culture growing Escherichia coli. 2. Gram-positive rica bacteremia consistent with contaminant. 3. Pancreatic cystic lesion with negative tumor markers. Questionable pseudocyst versus neoplasm. Awaiting records from previous facility. 4. Diabetes. 5. Anemia. PLAN: We are going to change patient back on Levaquin. Repeat urine cultures. Continue stool soft eners and laxatives. Follow surgical and sedation and await records from another Facility. Dictated By: [employer] for FAUSTINO HUSSEIN/GIORGIO Conf#: [id number] DID#: [id number]
--- NOTE | 2016-06-08 13:58 | PN ---
Date/Time of Note Date/Time of Note DATE: 06/08/16 TIME: 13:45 Assessment/Plan VTE Prophylaxis VTE Prophylaxis Intervention: SCD's Lines/Catheters IV [facility] (from [facility] Saline Lock Urinary Cath still in place: No Assessment/Plan Assessment/Plan 1. Acute pyelonephritis with urine culture growing Escherichia coli. on levaquin 2. Gram-positive rica bacteremia consistent with contaminant. 3. Pancreatic cystic lesion with negative tumor markers. repeat MRI in 3-6 months, follow up with surgery 4. Diabetes mellitus, on insulins 5. Normocytic anemia. chronic, stable 6. Hepatitis C Subjective 24 Hr Interval Summary Free Text/Dictation afebrile.no nausea or vomiting Exam/Review of Systems Vital Signs Vitals Vital Signs Date Time Temp Pulse Resp B/P Pulse Ox O2 Delivery O2 Flow Rate FiO2 06/08/16 13:36 87 06/08/16 12:08 98.0 18 124/70 100 06/07/16 04:00 Room Air Intake and Output 06/07/16 06/07/16 06/08/16 15:00 23:00 07:00 Intake Total 1250 ml 1000 ml Balance 1250 ml 1000 ml Exam Constitutional: alert, oriented, well developed Psych: nl mood/affect, no complaints Head: atraumatic, normocephalic Eyes: EOMI, PERRL, nl conjunctiva, nl lids ENMT: nl external ears & nose, nl lips & teeth, nl nasal mucosa & septum Neck: non-tender, supple Respiratory: clear to auscultation, normal air movement, No congested cough, No crackles/rales, No diminished breath sounds, No intercostal retraction, No labored breathing, No other, No respirations, No tactile fremitus, No wheezing Cardiovascular: nl pulses, regular rate and rhythm, No S3, No S4, No bruits, No diastolic murmur, No edema, No gallop, No irregular rhythm, No jugular venous distention (JVD), No murmurs/extra sounds, No other, No rub, No systolic murmur Gastrointestinal: nl liver, spleen, non-tender, soft, No ascites, No bowel sounds, No distended, No firm, No hepatomegaly, No mass , No other, No rebound or guarding, No splenomegaly, No surgical scars, No tender Musculoskeletal: nl extremities to inspection Extremities: normal pulses, No calf tenderness, No clubbing, No cyanosis, No edema, No other, No palpable cord, No pitting pedal edema, No tenderness Neurological: P[employer]SERVATOR II-XII intact, nl mental status, nl speech, nl strength Skin: nl turgor Lymph: nl lymph nodes Results Result Diagram: 06/08/16 0615 06/08/16 0615 Results 24 hrs Laboratory Tests Test 06/07/16 16:45 06/07/16 19:47 06/08/16 05:20 06/08/16 06:15 Bedside Glucose 390 H 217 290 H Anion Gap 13 Basophils # 0.0 Basophils % 0.3 Blood Urea Nitrogen 20 Calcium Level 8.7 Carbon Dioxide Level 24 Chloride Level 104 Creatinine 0.77 Eosinophils # 0.1 Eosinophils % 1.4 Glucose Level 334 #H Hematocrit 33.3 L Hemoglobin 10.8 L Lymphocytes # 2.1 Lymphocytes % 32.7 Mean Corpuscular Hemoglobin 27.7 L Mean Corpuscular Hemoglobin Concent 32.4 Mean Corpuscular Volume 85.4 Mean Platelet Volume 9.4 Monocytes # 0.5 Monocytes % 7.4 Neutrophils # 3.7 Neutrophils % 57.6 Nucleated Red Blood Cells # 0.0 Nucleated Red Blood Cells % 0.0 Platelet Count 290 Potassium Level 4.3 Red Blood Count 3.90 L Red Cell Distribution Width 13.4 Sodium Level 137 White Blood Count 6.5 # Test 06/08/16 07:47 06/08/16 11:48 Bedside Glucose 311 H 155 Medications Medications Current Medications Ondansetron HCl (Zofran Inj) 4 mg Q6H PRN IV NAUSEA AND/OR VOMITING Last administered on 06/02/16 12:13; Admin Dose 4 MG; Start 05/31/16 at 18:30 Acetaminophen (Tylenol Tab) 650 mg Q6H PRN PO PAIN LEVEL 1-3 OR FEVER Last administered on 06/06/16 09:20; Admin Dose 650 MG; Start 05/31/16 at 18:30 Acetaminophen/ Hydrocodone Bitart ([place] (5/325)) 1 tab Q6H PRN PO MODERATE PAIN LEVEL 4-6 Last administered on 06/04/16 09:46; Admin Dose 1 TAB; Start at 18:30 Morphine Sulfate (morphine) 2 mg Q4H PRN IV SEVERE PAIN LEVEL 7-10 Last administered on 06/08/16 08:04; Admin Dose 2 MG; Start 05/31/16 at 18:30 Magnesium Hydroxide (Milk Of Mag) 30 ml DAILY PRN PO CONSTIPATION Last administered on 06/03/16 03:02; Admin Dose 30 ML; Start 05/31/16 at 18:30 Zolpidem Tartrate (Ambien) 5 mg QHS PRN PO SLEEP Last administered on 06/07/16 22:10; Admin Dose 5 MG; Start 05/31/16 at 18:30 Famotidine (Pepcid) 20 mg Q12 PO Last administered on 06/08/16 08:12; Admin Dose 20 MG; Start 05/31/16 at 21:00 Miscellaneous Information 1 ea NOTE XX ; Start 05/31/16 at 19:00 Glucose (Glutose) 15 gm Q15M PRN PO DECREASED GLUCOSE; Start 05/31/16 at 19:00 Glucose (Glutose) 22.5 gm Q15M PRN PO DECREASED GLUCOSE; Start 05/31/16 at 19: 00 Dextrose (D50w Syringe) 25 ml Q15M PRN IV DECREASED GLUCOSE; Start 05/31/16 at 19:00 Dextrose (D50w Syringe) 50 ml Q15M PRN IV DECREASED GLUCOSE; Start 05/31/16 at 19:00 Glucagon (Glucagen) 1 mg Q15M PRN IM DECREASED GLUCOSE; Start 05/31/16 at 19:00 Glucose (Glutose) 15 gm Q15M PRN BUCCAL DECREASED GLUCOSE Last administered on 06/03/16 08:21; Admin Dose 15 GM; Start 05/31/16 at 19:00 Diagnostic Test (Pha) (Accucheck) 1 ea 02 XX Last administered on 06/08/16 02: 00; Admin Dose 1 EA; Start 06/01/16 at 02:00 Hydralazine HCl (Apresoline) 10 mg Q6H PRN IV SBP>160 Last administered on 21:55; Admin Dose 10 MG; Start 05/31/16 at 19:00 Bisacodyl (Dulcolax) 10 mg DAILY PRN PO CONSTIPATION Last administered on 21:05; Admin Dose 10 MG; Start 06/02/16 at 13:00 Docusate Sodium (Colace) 200 mg DAILY PRN PO CONSTIPATION Last administered on 06/03/16 03:04; Admin Dose 200 MG; Start 06/02/16 at 13:00 Hydromorphone HCl (Dilaudid) 0.5 mg Q4H PRN IV PAIN; Start 06/02/16 at 16:30 Senna (Senokot) 2 tab DAILY PO Last administered on 06/08/16 08:12; Admin Dose 2 TAB; Start 06/03/16 at 03:00 Lorazepam (Ativan) 1 mg HS PRN PO INSOMNIA Last administered on 06/03/16 03:05 ; Admin Dose 1 MG; Start 06/03/16 at 03:00 Insulin Glargine (Lantus) 24 unit DAILY@20 SC Last administered on 06/07/16 21: 01; Admin Dose 24 UNIT; Start 06/03/16 at 20:00 Acetaminophen/ Butalbital/ Caffeine (Fioricet) 2 tab Q4H PRN PO headache; Start 06/04/16 at 17:00 Gabapentin (Neurontin) 300 mg BID PO Last administered on 06/08/16 08:12; Admin Dose 300 MG; Start 06/04/16 at 21:00 Levofloxacin (Levaquin) 500 mg DAILY@06 PO ; Start 06/09/16 at 06:00 MELINA GORDON MD Jun 08, 2016 13:57
[2016-06-08 17:50] LABS: ADD UMIC YES; URINE BILIRUBIN (Dip) NEGATIVE (NEGATIVE); URINE BLOOD (Dip) 1+ (NEGATIVE); URINE COLOR LT. YELLOW (YELLOW); URINE GLUCOSE (Dip) NEGATIVE (NEGATIVE); URINE KETONES (Dip) NEGATIVE (NEGATIVE); URINE LEUKOCYTE ESTERASE (Dip) 1+ (NEGATIVE); URINE NITRITE (Dip) NEGATIVE (NEGATIVE); URINE TOTAL PROTEIN (Dip) 2+ (NEGATIVE); URINE UROBILINOGEN (Dip) 0.2 E.U./dL (0.1-1.0)
[2016-06-08 18:15] LABS: BACTERIA,URINE FEW
[2016-06-08] MEDS: BISACODYL (EC) 5 MG TAB PO PRN (20:14)
[2016-06-08] MEDS: DOCUSATE SODIUM 100 MG CAP PO PRN (20:14)
[2016-06-08] MEDS: HYDROCODONE/APAP (5/325) TAB PO PRN (20:15)
[2016-06-08] MEDS: INSULIN GLARGINE [LANtus] 3 ML PEN SC SCH (20:17)
[2016-06-08] MEDS: ACETAMINOPHEN 325 MG TAB PO PRN (20:23)
--- NOTE | 2016-06-08 23:17 | PN ---
Date/Time of Note Date/Time of Note DATE: 06/08/16 TIME: 23:15 Assessment/Plan Lines/Catheters IV Catheter Type (from [facility]): Saline Lock Ghosh in Place (from [facility]): No Assessment/Plan Chief Complaint/Hosp Course 1. Abdominal pain. DDx: Emphysematous left side pyelonephritis with UTI vs Pancreatic cystic lesion. MRI noted. Improved -abx -supportive -w/u of pancreatic lesion (MRI noted. Tumor markers negative. Hx of pancreatitis ? pseudocyst) > await results from other hospital and follow up imaging 2. Pancreatic 3.1cm cystic tail lesion. DDx: Pseudocyst (hx of ? pancreatitis in 2003) vs serous cystadenoma vs mucinous cystic neoplasm, vs IPMN. MRI noted. -tumor markers negative -awaiting records from previous hospital 3. DM -nutrition and medication optimization 4. Transaminitis with Hep C + Antibody -gi and medical optimization -monitor trend 5. Anemia -monitor 6. Hyponatremia, hyperglycemia. Improved. -judicious fluid management -insulin tx -close monitoring Thank you, Problems: Subjective 24 Hr Interval Summary No f/c. No n/v. No cp/sob. No cough. No valdovinos/dizzy/visual or neuro changes. No dysuria. Min abdominal pain. Exam/Review of Systems Vital Signs Vitals Vital Signs Date Time Temp Pulse Resp B/P Pulse Ox O2 Delivery O2 Flow Rate FiO2 06/08/16 20:20 85 06/08/16 19:00 97.4 18 133/64 98 06/07/16 04:00 Room Air Intake and Output 06/07/16 06/07/16 06/08/16 15:00 23:00 07:00 Intake Total 1250 ml 1000 ml Balance 1250 ml 1000 ml Exam Free Text/Dictation Constitutional: alert, oriented, No distress Psych: nl mood/affect, No anxiety Head: atraumatic, normocephalic Eyes: EOMI, PERRL, nl conjunctiva, No icteric ENMT: mucosa pink and moist, nl external ears & nose, nl lips & teeth Neck: non-tender, supple, No jvd Respiratory: normal air movement, No congested cough, No labored breathing Cardiovascular: regular rate and rhythm, No edema Gastrointestinal: soft, tender (Min in left side), No distended, No rebound or guarding Musculoskeletal: nl extremities to inspection, nl gait and stance, No joint tenderness Extremities: normal pulses, No calf tenderness, No cyanosis Neurological: nl mental status, nl speech, nl strength Skin: nl turgor, No diaphoresis, No rash or lesions Lymph: nl lymph nodes Results Result Diagram: 06/08/16 0615 06/08/16 0615 HARRISON MEIER MD Jun 08, 2016 23:17
[2016-06-09] VITALS (7 sets, daily range): BP systolic 103–178; BP diastolic 52–79; PULSE 72–94; RESP 18
[2016-06-09] MEDS: ACCUCHECK AT 2AM (Patients on SS coverage) XX SCH (02:00)
[2016-06-09] MEDS ORDERED: LEVOFLOXACIN 500 MG TAB PO SCH (06:00)
[2016-06-09] MEDS: INSULIN ASPART [NOVOLOG] 3 ML PEN SC SCH ×5 (08:00→12:04)
[2016-06-09] MEDS: SENNA TAB PO SCH (08:35)
[2016-06-09] MEDS: GABAPENTIN 300 MG CAP PO SCH (08:35)
[2016-06-09] MEDS: FAMOTIDINE 20 MG TAB PO SCH (08:35)
[2016-06-09] MEDS: HYDROCODONE/APAP (5/325) TAB PO PRN (11:31)
--- NOTE | 2016-06-09 11:56 | CONS ---
Date/Time of Note Date/Time of Note DATE: 06/09/16 TIME: 11:54 Assessment/Plan Assessment/Plan Chief Complaint/Hosp Course SUBJECTIVE: Patient is alert, looks comfortable, no fevers ANTIMICROBIALS: Levaquin. PHYSICAL EXAMINATION: GENERAL: Well-developed, middle-aged woman, who is alert, in no distress. HEENT: Head atraumatic, normocephalic. Sclerae anicteric. Buccal mucosa pink. NECK: Supple, trachea midline. CHEST: Rise symmetrical. Breath sounds clear. HEART: S1, S2. ABDOMEN: Soft. Bowel tones present. EXTREMITIES: Without cyanosis. ASSESSMENT: 1. Acute pyelonephritis with urine culture growing Escherichia coli. 2. Bacteremia ==> poss contaminant. 3. Pancreatic cystic lesion with negative tumor markers. Questionable pseudocyst versus neoplasm. Awaiting records from previous facility. 4. Diabetes. 5. Anemia. PLAN: Stable, continue abx, repeat bld cultures, f/u repeat urine cx. Continue stool softeners and laxatives. Follow surgical and sedation and await records from another Facility. DW staff Problems: Consultation Date/Type/Reason Admit Date/Time May 31, 2016 at 19:44 Type of Consultation: ID Exam/Review of Systems Vital Signs Vitals Vital Signs Date Time Temp Pulse Resp B/P Pulse Ox O2 Delivery O2 Flow Rate FiO2 06/09/16 11:36 98.9 81 18 121/64 97 Room Air Intake and Output 06/08/16 06/08/16 06/09/16 15:00 23:00 07:00 Intake Total 50 ml 700 ml 850 ml Balance 50 ml 700 ml 850 ml Results Result Diagram: 06/08/16 0615 06/08/16 0615 Results 24 hrs Laboratory Tests Test 06/08/16 16:24 06/08/16 17:00 06/08/16 20:03 06/09/16 07:39 Bedside Glucose 182 184 78 Urine Bacteria FEW Urine Bilirubin NEGATIVE Urine Clarity SLIGHTLY CLOUDY Urine Color LT. YELLOW Urine Epithelial Cells MODERATE Urine Glucose NEGATIVE Urine Hemoglobin 1+ H Urine Ketones NEGATIVE Urine Leukocyte Esterase 1+ H Urine Microscopic RBC 2-5 Urine Microscopic WBC 10-25 Urine Nitrite NEGATIVE Urine Specific [place] 1.020 Urine Total Protein 2+ H Urine Urobilinogen 0.2 E.U./dL Urine pH 6.0 Test 06/09/16 09:32 06/09/16 11:25 06/09/16 11:26 Bedside Glucose 158 330 H 307 H Medications Medications Current Medications Ondansetron HCl (Zofran Inj) 4 mg Q6H PRN IV NAUSEA AND/OR VOMITING Last administered on 06/02/16 12:13; Admin Dose 4 MG; Start 05/31/16 at 18:30 Acetaminophen (Tylenol Tab) 650 mg Q6H PRN PO PAIN LEVEL 1-3 OR FEVER Last administered on 06/08/16 20:23; Admin Dose 650 MG; Start 05/31/16 at 18:30 Acetaminophen/ Hydrocodone Bitart ([place] (5/325)) 1 tab Q6H PRN PO MODERATE PAIN LEVEL 4-6 Last administered on 06/09/16 11:31; Admin Dose 1 TAB; Start at 18:30 Morphine Sulfate (morphine) 2 mg Q4H PRN IV SEVERE PAIN LEVEL 7-10 Last administered on 06/08/16 08:04; Admin Dose 2 MG; Start 05/31/16 at 18:30 Magnesium Hydroxide (Milk Of Mag) 30 ml DAILY PRN PO CONSTIPATION Last administered on 06/03/16 03:02; Admin Dose 30 ML; Start 05/31/16 at 18:30 Zolpidem Tartrate (Ambien) 5 mg QHS PRN PO SLEEP Last administered on 06/07/16 22:10; Admin Dose 5 MG; Start 05/31/16 at 18:30 Famotidine (Pepcid) 20 mg Q12 PO Last administered on 06/09/16 08:35; Admin Dose 20 MG; Start 05/31/16 at 21:00 Miscellaneous Information 1 ea NOTE XX ; Start 05/31/16 at 19:00 Glucose (Glutose) 15 gm Q15M PRN PO DECREASED GLUCOSE; Start 05/31/16 at 19:00 Glucose (Glutose) 22.5 gm Q15M PRN PO DECREASED GLUCOSE; Start 05/31/16 at 19: 00 Dextrose (D50w Syringe) 25 ml Q15M PRN IV DECREASED GLUCOSE; Start 05/31/16 at 19:00 Dextrose (D50w Syringe) 50 ml Q15M PRN IV DECREASED GLUCOSE; Start 05/31/16 at 19:00 Glucagon (Glucagen) 1 mg Q15M PRN IM DECREASED GLUCOSE; Start 05/31/16 at 19:00 Glucose (Glutose) 15 gm Q15M PRN BUCCAL DECREASED GLUCOSE Last administered on 06/03/16 08:21; Admin Dose 15 GM; Start 05/31/16 at 19:00 Diagnostic Test (Pha) (Accucheck) 1 ea 02 XX Last administered on 06/08/16 02: 00; Admin Dose 1 EA; Start 06/01/16 at 02:00 Hydralazine HCl (Apresoline) 10 mg Q6H PRN IV SBP>160 Last administered on 21:55; Admin Dose 10 MG; Start 05/31/16 at 19:00 Bisacodyl (Dulcolax) 10 mg DAILY PRN PO CONSTIPATION Last administered on 20:14; Admin Dose 10 MG; Start 06/02/16 at 13:00 Docusate Sodium (Colace) 200 mg DAILY PRN PO CONSTIPATION Last administered on 06/08/16 20:14; Admin Dose 200 MG; Start 06/02/16 at 13:00 Hydromorphone HCl (Dilaudid) 0.5 mg Q4H PRN IV PAIN; Start 06/02/16 at 16:30 Senna (Senokot) 2 tab DAILY PO Last administered on 06/09/16 08:35; Admin Dose 2 TAB; Start 06/03/16 at 03:00 Lorazepam (Ativan) 1 mg HS PRN PO INSOMNIA Last administered on 06/03/16 03:05 ; Admin Dose 1 MG; Start 06/03/16 at 03:00 Insulin Glargine (Lantus) 24 unit DAILY@20 SC Last administered on 06/08/16 20: 17; Admin Dose 24 UNIT; Start 06/03/16 at 20:00 Acetaminophen/ Butalbital/ Caffeine (Fioricet) 2 tab Q4H PRN PO headache; Start 06/04/16 at 17:00 Gabapentin (Neurontin) 300 mg BID PO Last administered on 06/09/16 08:35; Admin Dose 300 MG; Start 06/04/16 at 21:00 Levofloxacin (Levaquin) 500 mg DAILY@06 PO Last administered on 06/09/16 06:42 ; Admin Dose 500 MG; Start 06/09/16 at 06:00 FOREIGN HERRERA NP Jun 09, 2016 11:56
[2016-06-09] MEDS ORDERED: NOVO3I SC ×2 (14:14)
[2016-06-09] MEDS ORDERED: LANT3I SC (14:14)
[2016-06-09] MEDS ORDERED: LEVO500T72 PO (14:14)
[2016-06-09] MEDS ORDERED: ACET1TAB40 PO (14:15)
--- NOTE | 2016-06-09 14:20 | DS ---
Date/Time of Note Date/Time of Note DATE: 06/09/16 TIME: 14:16 Discharge Summary Admission/Discharge Info Admit Date/Time May 31, 2016 at 19:44 Discharge Date/Time Final Diagnosis 1. Acute pyelonephritis with urine culture growing Escherichia coli. on levaquin 2. Gram-positive rica bacteremia consistent with contaminant. 3. Pancreatic cystic lesion with negative tumor markers. repeat MRI in 3-6 months, follow up with PCP 4. Diabetes mellitus, on insulins, on insulins 5. Normocytic anemia. chronic, stable 6. Hepatitis C Patient Condition: Stable Hospital Course his is a 50-year-old female with past medical history of type 2 diabetes mellitus who also takes insulin for her diabetes control who came to the emergency room with a chief complaint of 2 days of abdominal pain, diarrhea, nonbloody, nonbilious vomiting; dysuria, urinary frequency, fevers, chills, malaise, and poor oral intake. The patient verbalized that she has not been using her insulin for the past 2 days. The patient verbalized that she was using her metformin, though. The patient denied any sick contacts. The patient denied any dyspnea, cough, or shortness of breath. The patient was complaining of bilateral lower extremity cramping. In the emergency room, the patient underwent a CT scan of the abdomen and pelvis that showed a cystic structure with surrounding enhancement in the tail of the pancreas measuring 2.6 x [address] also revealed gas in the collecting system of the left kidney and in the bladder consistent with probable emphysematous pyelonephritis. The patient's urinalysis showed positive leukocyte esterase with urine microscopic WBC of greater than 50. The patient was noticed to have a serum blood glucose of 640. The patient's sodium was 126. In the emergency room, the patient was treated with IV levofloxacin and IV hydration. The patient was also given analgesics and a single dose of Humulin insulin subcutaneous insulin. Patient is found of having UTI with E. Coli on culture. She will be on 7 more days of levaquin. MRI revealed a Cystic structure in the pancreatic tail as detailed above. A follow-up in 3-6 months is recommended. Patient is informed that she needs MRI of abdomen in 3-6 months. [place] [id number] Radiology Main Line: [phone] DIAGNOSTIC IMAGING REPORT Patient: CARO MELLO : 1965 Age: 50 Sex: F MR #: [id number] [facility] #: [id number] DOS: 06/02/16 0000 Ordering MD: HARRISON MEIER [place] [facility] [place] [facility] PROCEDURE: MR Abdomen. CLINICAL INDICATION: Abdominal pain. Pancreatic cystic lesion. Emphysematous pyelonephritis. TECHNIQUE: Multiplanar MRI of the abdomen was performed without the administration of intravenous Gadolinium. prior to and following the intravenous administration of 20 cc of Magnevist. COMPARISON: CT of the abdomen and pelvis from 05/31/2016 FINDINGS: The liver is normal in size and homogeneous in signal intensity and enhancement. There is no evidence of enhancing/hypoenhancing lesion. The hepatic and portal veins are patent. The gallbladder has been removed. The common bile duct remaining hepatic ducts are dilated with the common bile duct measuring approximately 9 ml. The adrenal glands are unremarkable. A cystic structure is seen in the pancreatic tail which demonstrates hyperintense T2 signal and peripheral rim enhancement. The cystic structure is oval in appearance and measures approximately 3.2 x 1.9 x 2.2 cm in size. No other pancreatic lesion is seen. The kidneys are symmetric in size and homogeneous enhancement. Susceptibility artifact in the left collecting system is seen which corresponds to the gas seen on the CT of the abdomen pelvis from 05/31/2016. There is no hydronephrosis. Nonspecific bilateral perinephric soft tissue stranding is seen. The abdominal aorta is normal in caliber. There is no periaortic / retroperitoneal lymphadenopathy. The stomach and visualized small and large intestines are unremarkable. There are no focal inflammatory changes of the mesentery. There is no mesenteric lymphadenopathy. There is no ascites. There are no bone marrow signal abnormalities. Subcutaneous soft tissues are unremarkable. IMPRESSION: 1. Cystic structure in the pancreatic tail as detailed above. A follow-up in 3- 6 months is recommended to ensure stability. 2. Susceptibility artifact in the left collecting system which corresponds to the gas seen on the CT of the abdomen and pelvis and is consistent with emphysematous pyelonephritis. 3. Status post cholecystectomy with biliary dilatation which may be physiologic and is again seen. 4. Nonspecific bilateral perinephric soft tissue stranding. RPTAT: HPNM Physician Olaf Date Time Electronically viewed and signed by Sidney Del Castillo Physician on 06/02/2016 16 :51 / CC: HARRISON MEIER MD Home Meds Active Scripts Acetaminophen with Codeine (Acetaminophen-Cod #3 Tablet) 1 Each Tablet, 1 TAB PO Q6H, #20 TAB Prov:MELINA GORDON MD 06/09/16 Insulin Glargine* (Lantus*) 100 Unit/Ml Soln, 24 UNIT SC DAILY@20 for 30 Days Prov:MELINA GORDON MD 06/09/16 Levofloxacin* (Levaquin*) 500 Mg Tablet, 500 MG PO DAILY@06 for 7 Days, TAB Prov:MELINA GORDON MD 06/09/16 Insulin Aspart* (Novolog Insulin Pen*) 100 Unit/Ml Soln, 0 UNIT SC WITH MEALS BEDTIME for 30 Days Prov:MELINA GORDON MD 06/09/16 Insulin Aspart* (Novolog Insulin Pen*) 100 Unit/Ml Soln, 8 UNIT SC WITH MEALS for 30 Days Prov:MELINA GORDON MD 06/09/16 Follow-up Plan PCP in one week, needs MRI abdomen in 3-6 months Pending Labs Laboratory Tests Test 06/08/16 16:24 06/08/16 17:00 06/08/16 20:03 06/09/16 07:39 Bedside Glucose 182mg/dL (70-220) 184mg/dL (70-220) 78mg/dL (70-220) Urine Bacteria FEW Urine Bilirubin NEGATIVE (NEGATIVE) Urine Clarity SLIGHTLY CLOUDY (CLEAR) Urine Color LT. YELLOW (YELLOW) Urine Epithelial Cells MODERATE Urine Glucose NEGATIVE% (NEGATIVE) Urine Hemoglobin 1+ (NEGATIVE) Urine Ketones NEGATIVE (NEGATIVE) Urine Leukocyte Esterase 1+ (NEGATIVE) Urine Microscopic RBC 2-5/HPF (0) Urine Microscopic WBC 10-25/HPF (0) Urine Nitrite NEGATIVE (NEGATIVE) Urine Specific [place] 1.020 (1.003-1.030) Urine Total Protein 2+ (NEGATIVE) Urine Urobilinogen 0.2 E.U./dL (0.1-1.0) Urine pH 6.0 (5.0-9.0) Test 06/09/16 09:32 06/09/16 11:25 06/09/16 11:26 Bedside Glucose 158mg/dL (70-220) 330mg/dL (70-220) 307mg/dL (70-220) Microbiology Date/Time Source Procedure Growth Status 06/08/16 17:00 Clean Catch Urine Urine Culture - Preliminary NO GROWTH AFTER 24 HOURS Resulted MELINA GORDON MD Jun 09, 2016 14:20
--- NOTE | 2016-06-09 15:58 | PN ---
Date/Time of Note Date/Time of Note DATE: 06/09/16 TIME: 15:57 Assessment/Plan Lines/Catheters IV Catheter Type (from [facility]): Saline Lock Ghosh in Place (from [facility]): No Assessment/Plan Chief Complaint/Hosp Course 1. Abdominal pain. DDx: Emphysematous left side pyelonephritis with UTI vs Pancreatic cystic lesion. MRI noted. Improved -abx -supportive -w/u of pancreatic lesion (MRI noted. Tumor markers negative. Hx of pancreatitis ? pseudocyst) > await results from other hospital and follow up imaging 2. Pancreatic 3.1cm cystic tail lesion. DDx: Pseudocyst (hx of ? pancreatitis in 2003) vs serous cystadenoma vs mucinous cystic neoplasm, vs IPMN. MRI noted. -tumor markers negative -awaiting records from previous hospital 3. DM -nutrition and medication optimization 4. Transaminitis with Hep C + Antibody -gi and medical optimization -monitor trend 5. Anemia -monitor 6. Hyponatremia, hyperglycemia. Improved. -judicious fluid management -insulin tx -close monitoring Thank you, Problems: Subjective 24 Hr Interval Summary No f/c. No n/v. No cp/sob. No cough. No valdovinos/dizzy/visual or neuro changes. No dysuria. Min abdominal pain. Exam/Review of Systems Vital Signs Vitals Vital Signs Date Time Temp Pulse Resp B/P Pulse Ox O2 Delivery O2 Flow Rate FiO2 06/09/16 12:17 94 06/09/16 11:36 98.9 18 121/64 97 Room Air Intake and Output 06/08/16 06/08/16 06/09/16 14:59 22:59 06:59 Intake Total 50 ml 700 ml 850 ml Balance 50 ml 700 ml 850 ml Exam Free Text/Dictation Constitutional: alert, oriented, No distress Psych: nl mood/affect, No anxiety Head: atraumatic, normocephalic Eyes: EOMI, PERRL, nl conjunctiva, No icteric ENMT: mucosa pink and moist, nl external ears & nose, nl lips & teeth Neck: non-tender, supple, No jvd Respiratory: normal air movement, No congested cough, No labored breathing Cardiovascular: regular rate and rhythm, No edema Gastrointestinal: soft, tender (Min in left side), No distended, No rebound or guarding Musculoskeletal: nl extremities to inspection, nl gait and stance, No joint tenderness Extremities: normal pulses, No calf tenderness, No cyanosis Neurological: nl mental status, nl speech, nl strength Skin: nl turgor, No diaphoresis, No rash or lesions Lymph: nl lymph nodes Results Result Diagram: 06/08/16 0615 06/08/16 0615 HARRISON MEIER MD Jun 09, 2016 15:58
== END 2016-06-09 18:01 | disposition home or self-care (01) | DRG 690 ==
LOC: E/R 11:59 → MS4 19:44
PROVIDERS: ADMIT Family Medicine; ATTEND Family Medicine
DX: N10 Acute pyelonephritis (principal); K86.2 Cyst of pancreas; E11.65 Type 2 diabetes mellitus with hyperglycemia; E87.1 Hypo-osmolality and hyponatremia; R74.0 Nonspecific elevation of levels of transaminase and lactic acid dehydrogenase [LDH]; D64.9 Anemia, unspecified; B96.20 Unspecified Escherichia coli [E. coli] as the cause of diseases classified elsewhere; B19.20 Unspecified viral hepatitis C without hepatic coma; Z88.0 Allergy status to penicillin; Z79.4 Long term (current) use of insulin; Z79.84 Long term (current) use of oral hypoglycemic drugs
CPT/HCPCS: 36415; 74177; 74182; 76775; 80048; 80053; 80061; 81001; 81003; 82105; 82150; 82378; 82652; 82962; 83036; 83605; 83690; 83735; 83930; 84100; 84300; 84439; 84443; 84703; 85025; 85610; 85730; 86301; 86304; 86704; 86709; 86803; 87040; 87086; 87340; 90686; 96361; 96365; 96368; 96372; 96375; 97162; J0360; J0692; J1815; J1956; J2060; J2270; J2405; J7030; Q9967

== ENCOUNTER 2016-07-22 04:22 | Emergency (ER) | payer OTHER ==
[~2016-07-22] VITALS: Ht 152.4 cm; Wt 58.0 kg
[~2016-07-22 04:22] MED LIST: ACET1TAB40 PO; LANT3I SC; LEVO500T72 PO; NOVO3I SC
[2016-07-22 04:26] VITALS: Ht 152.4 cm; Wt 58.0 kg
[2016-07-22] MEDS ORDERED: KETOROLAC 30 MG INJ IM STA (06:13)
[2016-07-22] MEDS ORDERED: DEXAMETHASONE 10 MG/ML 1 ML INJ IM ONE (06:30)
--- NOTE | 2016-07-22 07:33 | RADRPT ---
PROCEDURE: XR Knee. CLINICAL INDICATION: Left knee pain. Trauma. TECHNIQUE: 3 views of the left knee are available for review. COMPARISON: None available FINDINGS: The osseous structures, articular spaces, and surrounding soft tissues of the left knee are all unre markable. No acute fracture or dislocation is seen. No radiopaque foreign body is identified. Ali gnment is anatomic. IMPRESSION: 1. Unremarkable left knee x-ray series. 2. No acute fracture or dislocation is seen. RPTAT: HMJB .Vahe Hawley MD, MD Date Time Electronically viewed and signed by .Vahe Hawley MD, MD on 07/22/2016 07:32 .B/
--- NOTE | 2016-07-22 07:34 | RADRPT ---
PROCEDURE: XR Shoulder. CLINICAL INDICATION: Left shoulder pain. Trauma. TECHNIQUE: 3 views of the left shoulder are available for review. COMPARISON: None available FINDINGS: The osseous structures, articular spaces, and surrounding soft tissues of the left shoulder are inta ct. No acute fracture or dislocation is seen. No radiopaque foreign body is identified. The acromi oclavicular joint is grossly remarkable for mild degenerative hypertrophy and joint space narrowing. The visualized portions of the left clavicle and upper left rib cage are equally unremarkable. IMPRESSION: 1. Unremarkable left shoulder x-ray series. 2. No acute fracture or dislocation is seen. 3. Mild chronic degenerative changes of the left AC joint. RPTAT: HMJB .Vahe Halwey MD, MD Date Time Electronically viewed and signed by .Vahe Hawley MD, on 07/22/2016 07:33 .B/
--- NOTE | 2016-07-22 07:35 | RADRPT ---
PROCEDURE: XR Chest. CLINICAL INDICATION: Trauma. Chest pain. TECHNIQUE: Single frontal chest x-ray. COMPARISON: None. FINDINGS: The lungs are clear. No focal opacification is seen. The cardiomediastinal silhouette is unremarka ble. The osseous structures are unremarkable. IMPRESSION: 1. There is no acute cardiopulmonary process. RPTAT: HMJB .Vahe Hawley MD, MD Date Time Electronically viewed and signed by .Vahe Hawley MD, on 07/22/2016 07:34 .B/
--- NOTE | 2016-07-22 07:35 | RADRPT ---
PROCEDURE: XR Lumbar Spine. CLINICAL INDICATION: Back pain. Trauma. TECHNIQUE: 4 views of the lumbar spine are available for review COMPARISON: None available FINDINGS: The normal lumbar lordosis is preserved. Alignment is intact. No acute fracture or dislocation is seen. No radiopaque foreign body is identified. The vertebral body heights are all normal. The in tervertebral disk heights are equally unremarkable. Degenerative spondylosis with mild anterior ost eophyte formation is seen at the L2-3, L3-4, and L4-5 levels. The posterior elements are equally in tact. On the frontal view, there is normal alignment. Paraspinous soft tissues are grossly unremar kable. IMPRESSION: 1. Mild multilevel degenerative spondylosis of the spine. 2. Otherwise, unremarkable lumbar spine x-ray series. 3. No acute fracture or dislocation is identified. RPTAT: HMJB .Vahe Hawley MD, Date Time Electronically viewed and signed by .Vahe Hawley MD, on 07/22/2016 07:34 .B/
[2016-07-22] MEDS ORDERED: NAPR-260 PO (07:42)
[2016-07-22 07:52] VITALS: BP 158/78
--- NOTE | 2016-07-22 15:28 | ERD ---
ER Documentation Chief Complaint Date/Time DATE: 07/22/16 TIME: 15:23 Chief Complaint left shoulder pain, back pain extends to left knee & left leg-hx -sciatica HPI This patient is a 50-year-old female with history of type 2 diabetes and sciatica presenting to the emergency department for left shoulder, left knee, and paraspinal L-spine tenderness with radiation down her left leg after mechanical fall approximately 4 days ago. The patient has had multiple ER visits for this complaint in the past. The patient is taking naproxen with only mild relief of symptoms. No other signs or symptoms to report at this time. ROS All systems reviewed and are negative except as per history of present illness. Medications Home Meds Active Scripts Naproxen* (Naprosyn*) 500 Mg Tablet, 500 MG PO BID Y for PAIN AND/OR INFLAMMATION, #20 TAB Prov:JOSEPHINE RAY PA-C 07/22/16 Acetaminophen with Codeine (Acetaminophen-Cod #3 Tablet) 1 Each Tablet, 1 TAB PO Q6H, #20 TAB Prov:MELINA GORDON MD 06/09/16 Insulin Glargine* (Lantus*) 100 Unit/Ml Soln, 24 UNIT SC DAILY@20 for 30 Days Prov:MELINA GORDON MD 06/09/16 Levofloxacin* (Levaquin*) 500 Mg Tablet, 500 MG PO DAILY@06 for 7 Days, TAB Prov:MELINA GORDON MD 06/09/16 Insulin Aspart* (Novolog Insulin Pen*) 100 Unit/Ml Soln, 0 UNIT SC WITH MEALS BEDTIME for 30 Days Prov:MELINA GORDON MD 06/09/16 Insulin Aspart* (Novolog Insulin Pen*) 100 Unit/Ml Soln, 8 UNIT SC WITH MEALS for 30 Days Prov:MELINA GORDON MD 06/09/16 Allergies Allergies: Coded Allergies: Unknown: Unable to obtain (Unverified , 05/31/16) PMhx/Soc History of Surgery: Yes (,CHOLECYSTECTOMY, Pancreatic sx) Anesthesia Reaction: No Hx Neurological Disorder: No Hx Respiratory Disorders: No Hx Cardiac Disorders: No Hx Psychiatric Problems: No Hx Miscellaneous Medical Probl: Yes (DM,C section, cholecystectomy, pancreatits , hep c) Hx Alcohol Use: No Hx Substance Use: No Hx Tobacco Use: No Smoking Status: Never smoker FmHx Noncontributory for chief complaint Physical Exam Vitals Vital Signs Date Time Temp Pulse Resp B/P Pulse Ox O2 Delivery O2 Flow Rate FiO2 07/22/16 07:52 158/78 07/22/16 04:26 98.3 84 20 178/90 100 Physical Exam Const: The patient is resting comfortably in no acute distress. Head: Atraumatic Eyes: Normal Conjunctiva ENT: Normal External Ears, Nose and Mouth. Neck: Full range of motion..~ No meningismus. Resp: Clear to auscultation bilaterally Cardio: Regular rate and rhythm, no murmurs Abd: Soft, non tender, non distended. Normal bowel sounds Skin: No petechiae or rashes Back: No midline or flank tenderness. The patient has paraspinal L-spine tenderness bilaterally, but worse on the left side. There is positive straight leg raise test on the left side. Ext: There is tenderness palpation of the left medial portion of the knee with slight decrease passive and active range of motion secondary to pain. There is mild tenderness palpation of the left shoulder joint at the supraspinatus area but range of motion is intact. Neur: Awake and alert Psych: Normal Mood and Affect Results 24 hrs Current Medications Medications (Trade) Dose Ordered Sig/Wilson Route PRN Reason Start Time Stop Time Status Last Admin Dose Admin Ketorolac Tromethamine (Toradol) 30 mg ONCE STAT IM 07/22/16 06:13 07/22/16 06:15 DC 07/22/16 06:27 Dexamethasone (Decadron) 10 mg ONCE ONCE IM 07/22/16 06:30 07/22/16 06:31 DC 07/22/16 06:28 Procedures/[facility] EMERGENCY DEPARTMENT COURSE / MEDICAL DECISION MAKING: This is a 50-year-old female who comes to the emergency room secondary to complaints of left knee, left shoulder, and left-sided sciatica pain. The patient was given IM Toradol and IM Decadron in the department. On re- evaluation, the patient was feeling improved. Radiology: PROCEDURE: XR Chest. CLINICAL INDICATION: Trauma. Chest pain. TECHNIQUE: Single frontal chest x-ray. COMPARISON: None. FINDINGS: The lungs are clear. No focal opacification is seen. The cardiomediastinal silhouette is unremarkable. The osseous structures are unremarkable. IMPRESSION: 1. There is no acute cardiopulmonary process. RPTAT: HMJB .Vahe Hawley MD, MD Date Time Electronically viewed and signed by .Vahe Hawley MD, MD on 07/22/2016 07:34 .B/ CC: JOSEPHINE RYA PA-C PROCEDURE: XR Knee. CLINICAL INDICATION: Left knee pain. Trauma. TECHNIQUE: 3 views of the left knee are available for review. COMPARISON: None available FINDINGS: The osseous structures, articular spaces, and surrounding soft tissues of the left knee are all unremarkable. No acute fracture or dislocation is seen. No radiopaque foreign body is identified. Alignment is anatomic. IMPRESSION: 1. Unremarkable left knee x-ray series. 2. No acute fracture or dislocation is seen. RPTAT: HMJB .Vahe Hawley MD, MD Date Time Electronically viewed and signed by .Vahe Hawley MD, MD on 07/22/2016 07:32 .B/ CC: JOSEPHINE RAY PA-C PROCEDURE: XR Lumbar Spine. CLINICAL INDICATION: Back pain. Trauma. TECHNIQUE: 4 views of the lumbar spine are available for review COMPARISON: None available FINDINGS: The normal lumbar lordosis is preserved. Alignment is intact. No acute fracture or dislocation is seen. No radiopaque foreign body is identified. The vertebral body heights are all normal. The intervertebral disk heights are equally unremarkable. Degenerative spondylosis with mild anterior osteophyte formation is seen at the L2-3, L3-4, and L4-5 levels. The posterior elements are equally intact. On the frontal view, there is normal alignment. Paraspinous soft tissues are grossly unremarkable. IMPRESSION: 1. Mild multilevel degenerative spondylosis of the spine. 2. Otherwise, unremarkable lumbar spine x-ray series. 3. No acute fracture or dislocation is identified. RPTAT: HMJB .Vahe Hawley MD, MD Date Time Electronically viewed and signed by .Vahe Hawley MD, MD on 07/22/2016 07:34 .B/ CC: JOSEPHINE RAY PA-C PROCEDURE: XR Shoulder. CLINICAL INDICATION: Left shoulder pain. Trauma. TECHNIQUE: 3 views of the left shoulder are available for review. COMPARISON: None available FINDINGS: The osseous structures, articular spaces, and surrounding soft tissues of the left shoulder are intact. No acute fracture or dislocation is seen. No radiopaque foreign body is identified. The acromioclavicular joint is grossly remarkable for mild degenerative hypertrophy and joint space narrowing. The visualized portions of the left clavicle and upper left rib cage are equally unremarkable. IMPRESSION: 1. Unremarkable left shoulder x-ray series. 2. No acute fracture or dislocation is seen. 3. Mild chronic degenerative changes of the left AC joint. RPTAT: HMJB .Vahe Hawley MD, MD Date Time Electronically viewed and signed by .Vahe Hawley MD, MD on 07/22/2016 07:33 .B/ CC: JOSEPHINE RAY PA-C The primary diagnosis is contusion of left knee. Secondary diagnosis is sciatica. Other diagnosis includes contusion of left shoulder. I have low suspicion for fracture, dislocation, cellulitis, septic bursitis, septic joint, cauda equina, epidural abscess, septicemia, or other emergent conditions at this time. Discharge: I have discussed the lab results and diagnostic findings with the patient and answered any questions or concerns. The patient was discharged with a prescription for naproxen. The patient was advised to followup with their PMD in 1-2 days and to return to the Emergency Department if there are any new or worsening symptoms. The patient understood and agreed with the diagnosis, treatment and plan. The patient is stable for discharge at this time. Departure Diagnosis: Primary Impression: Contusion of left knee Additional Impressions: Sciatica Contusion of left shoulder Condition: Fair Patient Instructions: Contusion, Lower Extremity, Back Pain W/ Sciatica, Shoulder Contusion [facility] Usted se valdovinos hecho un examen mdico de control que le indica que no est en esequiel condicin que requiera tratamiento urgente en el Departamento de Emergencia. Un estudio ms profundo y el tratamiento de segovia condicin pueden esperar sin ningn riesgo hasta que usted sea atendida/o en el consultorio de segovia mdico o esequiel cl dennys. Es responsabilidad suya arreglar esequiel mahendra para el seguimiento del earnest. MANEJO DE CONDICIONES NO URGENTES EN EL FUTURO 1) Si usted tiene un mdico de atencin primaria: Usted debera llamar a segovia mdico de atencin primaria antes de venir al departamento de emergencia. Despus de las horas de consultorio, segovia doctor o segovia asociado/a est disponible por telfono. El mdico o enfermero de flynn en el servicio telefnico puede asesorarle por pravin medio para atender el problema, o earnest contrario se puede programar esequiel mahendra. 2) Si usted no tiene un mdico de atencin primaria: Llame al mdico o clnica de referencia que aparece abajo veda las horas de consultorio para hacer esequiel mahendra para que le vean. CLINICAS: [facility] [phone] [address] [facility] [phone] [facility] [phone] [place] [id number] [phone] [facility] [phone] [facility] [phone] [address] Additional Instructions: No mas mejor en 2-3 oconnor, regresar. Mas peor en 24 horas, regresear rapidamente. Ir a doctor primario in 5-7 oconnor. Usar instrucciones cuando dominick medicamento. JOSEPHINE RAY PA-C Jul 22, 2016 15:28
== END 2016-07-22 07:53 | disposition home or self-care (01) ==
LOC: FTE 04:22
DX: S80.02XA Contusion of left knee, initial encounter (principal); S40.012A Contusion of left shoulder, initial encounter; E11.9 Type 2 diabetes mellitus without complications; M54.32 Sciatica, left side; W18.39XA Other fall on same level, initial encounter; Y92.9 Unspecified place or not applicable; Z79.4 Long term (current) use of insulin
CPT/HCPCS: 71010; 72100; 73030; 73562; 96372; J1100; J1885; Z7502

== ENCOUNTER 2016-07-26 21:13 | Emergency (ER) | payer OTHER ==
[~2016-07-26] VITALS: Ht 157.5 cm; Wt 59.0 kg
[~2016-07-26 21:13] MED LIST changes: +NAPR-260 PO
[2016-07-26 21:19] VITALS: Ht 157.5 cm; Wt 59.0 kg
--- NOTE | 2016-07-26 22:58 | ERA ---
ER Documentation Chief Complaint Date/Time DATE: 07/26/16 TIME: 22:53 Chief Complaint left leg pain, was here 4 days ago for same HPI Patient is a 50-year-old female presenting with the daughter who is translating seems reliable. Patient's chief complaint is back pain radiating to the leg. Patient was seen in the ER by Jason Olivares PA-C 5 days ago. Patient reports that the ointment has improved her pain is the injection given in the ER. Patient's pain has persisted over the past 2+ months. Pt denies h/o JOSE including overuse, strain, or trauma; Denies saddle parasthesia, incontinence, RPNF, or pain exacerbated by valsalva. Pt denies fever, chills, night sweats, weight loss, or increase symptoms at night. Denies h/o cardiovascular dz, disk herniation, spinal stenosis, fibromyalgia cancer, HIV, IVDU, arthritis or recent surgery. ROS All systems reviewed and are negative except as per history of present illness. Medications Home Meds Active Scripts Naproxen* (Naprosyn*) 500 Mg Tablet, 500 MG PO BID Y for PAIN AND/OR INFLAMMATION, #20 TAB Prov:JASON RAY PA-C 07/22/16 Acetaminophen with Codeine (Acetaminophen-Cod #3 Tablet) 1 Each Tablet, 1 TAB PO Q6H, #20 TAB Prov:MELINA GORDON MD 06/09/16 Insulin Glargine* (Lantus*) 100 Unit/Ml Soln, 24 UNIT SC DAILY@20 for 30 Days Prov:MELINA GORDON MD 06/09/16 Levofloxacin* (Levaquin*) 500 Mg Tablet, 500 MG PO DAILY@06 for 7 Days, TAB Prov:MELINA GORDON MD 06/09/16 Insulin Aspart* (Novolog Insulin Pen*) 100 Unit/Ml Soln, 0 UNIT SC WITH MEALS BEDTIME for 30 Days Prov:MELINA GORDON MD 06/09/16 Insulin Aspart* (Novolog Insulin Pen*) 100 Unit/Ml Soln, 8 UNIT SC WITH MEALS for 30 Days Prov:MELINA GORDON MD 06/09/16 Allergies Allergies: Coded Allergies: Penicillins (Verified Allergy, Unknown, rash, 07/26/16) PMhx/Soc History of Surgery: Yes (,CHOLECYSTECTOMY, Pancreatic sx) Anesthesia Reaction: No Hx Neurological Disorder: Yes (sciatica) Hx Respiratory Disorders: No Hx Cardiac Disorders: No Hx Psychiatric Problems: No Hx Miscellaneous Medical Probl: Yes (DM,C section, cholecystectomy, pancreatits , ) Hx Alcohol Use: No Hx Substance Use: No Hx Tobacco Use: No Smoking Status: Never smoker Physical Exam Vitals Vital Signs Date Time Temp Pulse Resp B/P Pulse Ox O2 Delivery O2 Flow Rate FiO2 07/26/16 21:19 98.1 86 20 174/96 97 Physical Exam Const: 50-year-old female who seems to be independent this moment Head: Atraumatic Eyes: Normal Conjunctiva ENT: Normal External Ears, Nose and Mouth. Neck: Full range of motion..~ No meningismus. Resp: Clear to auscultation bilaterally Cardio: Regular rate and rhythm, no murmurs Abd: Soft, non tender, non distended. Normal bowel sounds Skin: No petechiae or rashes Back: No midline or flank tenderness. Pain worsens with range of motion. Straight leg raise test positive on the left side and negative on the right. DTRs are 2+ bilaterally. Sensation intact in saddle area. Neurovascularly intact bilaterally. Decreased ambulation secondary to pain. Ext: No cyanosis, or edema Neur: Awake and alert Psych: Normal Mood and Affect Procedures/MDM At this time most likely diagnosis is sciatica without endangerment of the spinal cord. I very low suspicion for cauda equina as the patient has not lost bowel or bladder function and there is no saddle anesthesia. Patient denies worse headache of life or meningismus symptoms. Departure Diagnosis: Primary Impression: Pain of right leg Additional Impression: Sciatica Qualified Code: M54.32 - Sciatica of left side Additional Instructions: Follow up with your PCP within the next 1-3 days for a more thorough evaluation and a possible referral to a specialist. Return the the emergency department immediately if symptoms worsen or change. If you have any questions regarding medications, ask your pharmacist or us before you leave. If any adverse reactions occur while taking your medications, discontinue the treatment and return to the emergency department immediately. Take your medications as directed, and complete the entire course of treatment. LAKSHMI MOSHER PA-C Jul 26, 2016 22:58
[2016-07-26] MEDS ORDERED: IBUP-1542 PO (22:59)
[2016-07-26] MEDS ORDERED: KETOROLAC 15 MG INJ IM STA (22:59)
[2016-07-26 23:11] VITALS: BP 135/81; PULSE 91; RESP 20; TEMP 98
== END 2016-07-27 00:01 | disposition home or self-care (01) ==
LOC: FTE 21:13
DX: M79.605 Pain in left leg (principal); M54.32 Sciatica, left side
CPT/HCPCS: 96372; J1885; Z7502

== ENCOUNTER 2017-01-07 14:26 | Day surgery (SDC) | payer OTHER ==
[~2017-01-07] VITALS: Ht 152.4 cm; Wt 57.8 kg
[~2017-01-07 14:26] MED LIST changes: +IBUP-1542 PO
[2017-01-07 15:13] VITALS: Ht 152.4 cm; Wt 57.8 kg
[2017-01-07] MEDS ORDERED: BP MEDS (15:35)
[2017-01-07] MEDS ORDERED: CHOLESTEROL (15:35)
[2017-01-07] MEDS ORDERED: ASPI-535 PO (15:35)
[2017-01-07 15:44] VITALS: BP 166/82; PULSE 80; RESP 18
--- NOTE | 2017-01-07 16:17 | OPPN ---
Date/Time of Note Date/Time of Note DATE: 01/07/17 TIME: 16:16 Operative Report Preoperative Diagnosis Screening Postoperative Diagnosis Internal hemorrhoids Operation/Procedure Performed Colonoscopy Surgeon see signature line medical lab assistant None Anesthesia: moderate sedation Estimated blood loss: none Transfusion Required none Specimen None Grafts/Implants none Complications none JAROD NUNEZ MD Jan 07, 2017 16:17
[2017-01-07] MEDS ORDERED: MIDAZOLAM 1 MG/ML 2 ML INJ ONE ×2 (16:25)
[2017-01-07] MEDS ORDERED: FENTAnyl 50 MCG/ML VIAL ONE (16:25)
[2017-01-07 16:44] VITALS: BP 155/86; RESP 24
--- NOTE | 2017-01-08 12:17 | GILP ---
DATE OF PROCEDURE: NAME OF PROCEDURE: Colonoscopy. SURGEON: Jarod De La Paz MD PREOPERATIVE DIAGNOSIS: Screening colonoscopy. POSTOPERATIVE DIAGNOSES 1. Colonoscopy all the way to the cecum. 2. Internal hemorrhoids. 3. No colon neoplasm was identified. INDICATION FOR THE PROCEDURE: Ms. Misa Davenport is a 51-year-old female patient who was scheduled for screening colonoscopy. The procedure and possible complications were well explained to the patient. The patient understood and consented to the procedure. DESCRIPTION OF PROCEDURE: Under the influence of fentanyl and Versed, the colonoscope was carefully introduced in the rectum and under direct vision, it was advanced all the way to the cecum. FINDINGS: The patient had internal hemorrhoids. No colon neoplasm was identified. She tolerated the procedure very well and there was no complication from the procedure. At the end of the procedures, she was awake with stable vital signs and she was discharged home to the care of her family. IMPRESSION: 1. Colonoscopy all the way to the cecum. No colon neoplasm was identified. 2. Small internal hemorrhoids. PLAN: Next screening colonoscopy in 10 years. The patient needs abdominal CT scan with contrast fo r further evaluation of the pancreatic cyst. Dictated By: JAROD AVELAR/GIORGIO Conf#: [id number] DID#: [id number]
== END 2017-01-07 16:54 | disposition home or self-care (01) ==
LOC: GIL 14:26
PROVIDERS: ATTEND Internal Medicine Gastroenterology
DX: Z12.11 Encounter for screening for malignant neoplasm of colon (principal); K64.8 Other hemorrhoids
CPT/HCPCS: 45378; 82962; J2250; J3010; Z7610

== ENCOUNTER 2017-01-31 16:20 | Emergency (ER) | payer OTHER ==
[~2017-01-31] VITALS: Ht 160 cm; Wt 57.0 kg
[~2017-01-31 16:20] MED LIST changes: -ACET1TAB40 PO; +ASPI-535 PO; +BP MEDS; +CHOLESTEROL; -IBUP-1542 PO; -LANT3I SC; -LEVO500T72 PO; -NAPR-260 PO
[2017-01-31 16:38] VITALS: Ht 160 cm; Wt 57.0 kg
[2017-01-31] MEDS ORDERED: morphine 4 MG/ML VIAL IV STA (17:39)
[2017-01-31] MEDS ORDERED: ONDANSETRON 4 MG INJ IV STA (17:39)
[2017-01-31] MEDS ORDERED: LOSA50TA6 PO (17:48)
[2017-01-31] MEDS ORDERED: GABA300C16 PO (17:48)
[2017-01-31] MEDS ORDERED: METF1000 PO (17:49)
[2017-01-31] MEDS ORDERED: ATOR20TA38 PO (17:49)
[2017-01-31] MEDS ORDERED: INSU100I33 SC (17:49)
[2017-01-31] MEDS ORDERED: LIDOCAINE/MYLANTA 40 ML BTL PO ONE (18:00)
--- NOTE | 2017-01-31 18:25 | RADRPT ---
PROCEDURE: CT Abdomen and Pelvis without contrast CLINICAL INDICATION: Abdominal pain TECHNIQUE: Transaxial images were obtained through the abdomen and pelvis on a multi-slice scanner without the intravenous contrast administration. No oral contrast had previously been given. Sagit javed and coronal re-formations were subsequently reconstructed. One or more of the following dose reduction techniques were used: - Automated exposure control. - Adjustment of the mA and/or kV according to patient size. - Use of iterative reconstruction technique. Radiation dose: CTDIvol = 8.13 mGy; DLP = 420.65 mGy-cm. COMPARISON: 05/31/2016 FINDINGS: Lung bases: The visualized lung bases appear unremarkable. Liver: Normal in size and in attenuation. There is no focal lesion. Gallbladder: Surgical clips are again seen in the gallbladder fossa. Bile ducts: The common hepatic duct is mildly dilated to 9 mm. The common bile duct tapers normally to the head of the pancreas. Pancreas: The pancreatic head again appears unremarkable. The tail is atrophic and a 3.4 x 2.4 x 2.2 cm cyst is seen within the tail of the pancreas that appears to have slightly decreased in size fro m the previous. This likely represents a pseudocyst. Spleen: Normal in size with no focal lesion. Adrenals: Normal with no mass identified. Kidneys, ureters and bladder: There is no longer a air within the left renal pelvocaliceal system an d there continues to be mild pelvocaliectasis. There is bilateral perinephric stranding but no mass or intra renal calcification is appreciable. The ureters are normal in caliber and no ureteroliths a re identified. The bladder appears unremarkable and there is no longer intraluminal air. Reproductive organs: Unremarkable. Stomach and bowel: The stomach appears unremarkable. The cecum is positioned somewhat high in the ri ght abdomen. There is no evidence of bowel obstruction or inflammation. Appendix: A normal vermiform appendix is again evident. Peritoneum: No free intraperitoneal fluid or air is identified. Aorta: Normal in caliber with no aneurysmal dilatation. IVC: Unremarkable. Lymph nodes: No pathologically enlarged nodes are identified. Osseous structures: Mild diffuse degenerative anterior spurring is seen to the spine. IMPRESSION: 1. Since the previous CT of 05/31/2016, there is again evidence of a previous cholecystectomy, but there is no less biliary dilatation duct with the common hepatic mildly dilated to 9 mm and with the common bile duct tapering normally to the head of the pancreas. 2. The tail of the pancreas again appears atrophic and there is a slightly thick-walled cyst in the tail of the pancreas which now measures 3.4 x 2.4 x 2.2 cm, slightly decreased in size from the pre vious most compatible with a pseudocyst. 3. There is no longer air seen within the left renal collecting system or bladder but there continu es to be perinephric stranding bilaterally and mild pelvocaliectasis but no intra renal calcificatio n or ureterolith is evident and the bladder appears unremarkable. 4. There is no evidence of bowel obstruction or inflammation. The cecum is again positioned somewha t high within the right abdomen and a normal vermiform appendix is evident. 5. Mild degenerative spine changes are again noted. Physician Carlie Date Time Electronically viewed and signed by Physician Carlie on 01/31/2017 18:25 /
[2017-01-31 18:26] LABS: BASOPHILS % 0.4 % (0.0-2.0); EOSINOPHILS # 0.1 10^3/ul (0.0-0.5); HEMATOCRIT 33.9 % (37.0-47.0); HEMOGLOBIN 11.5 g/dl (12.0-16.0); LYMPHOCYTES # 2.1 10^3/ul (0.8-2.9); LYMPHOCYTES % 30.5 % (15.0-51.0); MEAN CORPUSCULAR HEMOGLOBIN 28.3 pg (29.0-33.0); MEAN CORPUSCULAR HGB CONC 33.9 g/dl (32.0-37.0); MEAN CORPUSCULAR VOLUME 83.5 fl (82.0-101.0); MEAN PLATELET VOLUME 9.7 fl (7.4-10.4); MONOCYTE # 0.5 10^3/ul (0.3-0.9); MONOCYTES % 6.8 % (0.0-11.0); NEUTROPHIL # 4.1 10^3/ul (1.6-7.5); PLATELET COUNT 252 10^3/UL (140-415); RED BLOOD COUNT 4.06 10^6/ul (4.20-5.40); RED CELL DISTRIBUTION WIDTH 12.7 % (11.5-14.5); WHITE BLOOD COUNT 6.7 10^3/ul (4.8-10.8)
[2017-01-31 18:46] LABS: ALANINE AMINOTRANSFERASE 37 IU/L (13-69); ALBUMIN 4.3 g/dl (3.3-4.9); ALBUMIN/GLOBULIN RATIO 1.19; ALKALINE PHOSPHATASE 100 IU/L (42-121); ANION GAP 13 (8-16); ASPARTATE AMINO TRANSFERASE 25 IU/L (15-46); BILIRUBIN,INDIRECT 0.3 mg/dl (0-1.1); BILIRUBIN,TOTAL 0.3 mg/dl (0.2-1.3); BLOOD UREA NITROGEN 17 mg/dl (7-20); CARBON DIOXIDE 28 mmol/L (21-31); CHLORIDE 99 mmol/L (97-110); CREATININE 0.92 mg/dl (0.44-1.00); GLUCOSE 334 mg/dl (70-220); POTASSIUM 4.4 mmol/L (3.5-5.1); SODIUM 136 mmol/L (135-144); TOTAL PROTEIN 7.9 g/dl (6.1-8.1)
[2017-01-31 19:00] LABS: TROPONIN-I < 0.012 ng/ml (0.00-0.12)
[2017-01-31] MEDS ORDERED: ONDA4TAB14 PO (19:08)
[2017-01-31] MEDS ORDERED: HYDR-902 PO (19:08)
--- NOTE | 2017-01-31 19:25 | ERD ---
ER Documentation Chief Complaint Chief Complaint left lower quadrant pain x5 days, difficult BM x 3days HPI Patient is a 51-year-old female with hypertension, diabetes, and high cholesterol presents with abdominal pain. The patient had left upper quadrant abdominal pain which started 5 days ago. The comes and goes. She has had no treatment as of yet. She has no fevers. She denies vomiting or diarrhea. Upon review of old medical records this is the patient's fourth visit to the ER since 2017 and review of the emergency department information exchange system shows visits to 2 separate emergency departments. She does not remember the name of her primary doctor. ROS All systems reviewed and are negative except as per history of present illness. Medications Home Meds Active Scripts Ondansetron (Ondansetron Odt) 4 Mg Tab.rapdis, 4 MG PO Q6H Y for NAUSEA AND/OR VOMITING, #10 TAB Prov:SHAVON QUEEN MD 01/31/17 Hydrocodone/Acetaminophen (Metz 10-325 Tablet) 1 Each Tablet, 1 TAB PO Q6H Y for PAIN, #7 TAB Prov:SHAVON QUEEN MD 01/31/17 Reported Medications Insulin Glargine,Hum.rec.anlog (Basaglar Kwikpen U-100) 100 Unit/1 Ml Insuln.pen , 20 UNIT SC QHS 01/31/17 Metformin Hcl* (Metformin Hcl*) 1,000 Mg Tablet, 1000 MG PO WITH BREAKFAST DINNE , #60 TAB 01/31/17 Atorvastatin Calcium* (Atorvastatin Calcium*) 20 Mg Tablet, 20 MG PO QHS, #30 TAB 01/31/17 Losartan Potassium* (Losartan Potassium*) 50 Mg Tablet, 50 MG PO DAILY, TAB 01/31/17 Gabapentin* (Gabapentin*) 300 Mg Capsule, 300 MG PO QHS, #60 CAP 01/31/17 Discontinued Reported Medications Aspirin Ec (Aspir 81) 81 Mg Tablet.dr, 81 MG PO DAILY, #30 TAB 01/07/17 [Cholesterol] No Conflict Check 01/07/17 [Bp Meds] No Conflict Check 01/07/17 Discontinued Scripts Insulin Aspart* (Novolog Insulin Pen*) 100 Unit/Ml Soln, 0 UNIT SC WITH MEALS BEDTIME for 30 Days Prov:MELINA GORDON MD 06/09/16 Allergies Allergies: Coded Allergies: Penicillins (Verified Allergy, Unknown, rash, 01/31/17) PMhx/Soc History of Surgery: Yes (CHOLECYSECTOMY, TUBAL LIGATION) Anesthesia Reaction: No Hx Neurological Disorder: No Hx Respiratory Disorders: No Hx Cardiac Disorders: Yes (HYPERTENSION) Hx Psychiatric Problems: No Hx Miscellaneous Medical Probl: Yes (HYPERLIPIDEMIA,DM) Hx Alcohol Use: No Hx Substance Use: No Hx Tobacco Use: No Smoking Status: Never smoker FmHx Family History: No diabetes Physical Exam Vitals Vital Signs Date Time Temp Pulse Resp B/P Pulse Ox O2 Delivery O2 Flow Rate FiO2 01/31/17 16:38 98.0 83 18 131/73 100 Physical Exam Const: Moderate distress secondary to pain Head: Atraumatic Eyes: Normal Conjunctiva ENT: Normal External Ears, Nose and Mouth. Neck: Full range of motion..~ No meningismus. Resp: Clear to auscultation bilaterally Cardio: Regular rate and rhythm, no murmurs Abd: Soft, left upper quadrant tenderness to palpation without rebound or guarding Skin: No petechiae or rashes Back: No midline or flank tenderness Ext: No cyanosis, or edema Neur: Awake and alert Psych: Normal Mood and Affect Result Diagram: 01/31/17181401/31/171814 Results 24 hrs Laboratory Tests Test 01/31/17 18:15 White Blood Count 6.710^3/ul Red Blood Count 4.0610^6/ul Hemoglobin 11.5g/dl Hematocrit 33.9% Mean Corpuscular Volume 83.5fl Mean Corpuscular Hemoglobin 28.3pg Mean Corpuscular Hemoglobin Concent 33.9g/dl Red Cell Distribution Width 12.7% Platelet Count 04646^3/UL Mean Platelet Volume 9.7fl Neutrophils % 61.0% Lymphocytes % 30.5% Monocytes % 6.8% Eosinophils % 1.0% Basophils % 0.4% Nucleated Red Blood Cells % 0.0/100WBC Neutrophils # 4.110^3/ul Lymphocytes # 2.110^3/ul Monocytes # 0.510^3/ul Eosinophils # 0.110^3/ul Basophils # 0.010^3/ul Nucleated Red Blood Cells # 0.010^3/ul Sodium Level 136mmol/L Potassium Level 4.4mmol/L Chloride Level 99mmol/L Carbon Dioxide Level 28mmol/L Anion Gap 13 Blood Urea Nitrogen 17mg/dl Creatinine 0.92mg/dl Glucose Level 334mg/dl Calcium Level 9.0mg/dl Total Bilirubin 0.3mg/dl Direct Bilirubin 0.00mg/dl Indirect Bilirubin 0.3mg/dl Aspartate Amino Transf (AST/SGOT) 25IU/L Alanine Aminotransferase (ALT/SGPT) 37IU/L Alkaline Phosphatase 100IU/L Troponin I < 0.012ng/ml Total Protein 7.9g/dl Albumin 4.3g/dl Globulin 3.60g/dl Albumin/Globulin Ratio 1.19 Lipase 55U/L Current Medications Medications (Trade) Dose Ordered Sig/Wilson Route PRN Reason Start Time Stop Time Status Last Admin Dose Admin Morphine Sulfate (morphine) 4 mg ONCE STAT IV 01/31/17 17:39 01/31/17 17:40 DC 01/31/17 18:10 Ondansetron HCl (Zofran Inj) 4 mg ONCE STAT IV 01/31/17 17:39 01/31/17 17:40 DC 01/31/17 18:11 Miscellaneous Medication (Gi Cocktail (2)) 40 ml ONCE ONCE PO 01/31/17 18:00 01/31/17 18:01 DC 01/31/17 18:11 Procedures/MDM CT abdomen pelvis shows no surgical process per radiology. Patient is a 51-year-old female with hypertension, diabetes, and high cholesterol who presents with abdominal pain. Laboratory studies show anemia with a hemoglobin of 11.5 and she does not require transfusion. She also was found to have hyperglycemia with no signs of diabetic ketoacidosis. The patient has been given medications and feels better. I believe outpatient management is appropriate. I doubt acute coronary syndrome, appendicitis, cholecystitis, pancreatitis, or bowel obstruction. I believe outpatient management is appropriate but the patient will need close follow-up with her primary doctor tomorrow for reevaluation. She can return sooner for any worsening symptoms. She was given copies of her laboratory studies and CT scan report prior to discharge. Departure Diagnosis: Primary Impression: Abdominal pain Abdominal location: left upper quadrant Qualified Code: R10.12 - Left upper quadrant pain Condition: Fair Patient Instructions: Abdominal Pain Referrals: [facility] (PCP) Additional Instructions: Visite a luca wright para un EXAMEN.Regrese a estas instalaciones si no se mejora fabrice esperbamos o fabrice eloise bryants. SHAVON QUEEN MD Jan 31, 2017 19:25
[2017-01-31] MEDS ORDERED: SENN-53 PO (19:38)
[2017-01-31] MEDS ORDERED: DOCU-144 PO (19:38)
[2017-01-31 19:41] VITALS: BP 128/79; PULSE 73; RESP 18; TEMP 97.8
== END 2017-01-31 19:41 | disposition home or self-care (01) ==
LOC: E/R 16:20
DX: R10.12 Left upper quadrant pain (principal); I10 Essential (primary) hypertension; E11.9 Type 2 diabetes mellitus without complications; Z79.4 Long term (current) use of insulin; Z79.82 Long term (current) use of aspirin; Z79.84 Long term (current) use of oral hypoglycemic drugs
CPT/HCPCS: 36415; 74176; 80053; 83690; 84484; 85025; 93005; 96374; 96375; J2270; J2405; Z7502; Z7610

== ENCOUNTER 2018-08-28 19:23 | Inpatient (IN) | payer OTHER ==
[~2018-08-28] VITALS: Ht 154.9 cm; Wt 66.1 kg
[~2018-08-28 19:23] MED LIST changes: -ASPI-535 PO; +ATOR20TA38 PO; -BP MEDS; -CHOLESTEROL; +DOCU-144 PO; +GABA300C16 PO; +HYDR-3980 PO; +INSU100I33 SC; +LOSA50TA14 PO; +METF100010 PO; -NOVO3I SC; +ONDA4TAB14 PO; +SENN-120 PO
--- NOTE | 2018-08-28 20:39 | ERD ---
ER Documentation Chief Complaint Chief Complaint cough, stuffy nose, "body swelling" x 3 days, hx DM2 and HTN HPI This is a 52-year-old woman complaining of body aches, cough, nasal congestion, sore throat, tactile fever x2 to 3 days. She states over the last couple days she is also developed some face and lower extremity swelling as well. She has had some nausea but no vomiting she denies abdominal pain, no chest pain or shortness of breath. Patient denies recent antibiotic use or recent travel. ROS All systems reviewed and are negative except as per history of present illness. Medications Home Meds Active Scripts Sennosides* (Senna Lax*) 8.6 Mg Tablet, 1 TAB PO DAILY, #30 TAB Prov:SHAVON QUEEN MD 01/31/17 Docusate Sodium* (Colace*) 100 Mg Capsule, 100 MG PO TID, #30 CAP Prov:SHAVON QUEEN MD 01/31/17 Ondansetron (Ondansetron Odt) 4 Mg Tab.rapdis, 4 MG PO Q6H PRN for NAUSEA AND/OR VOMITING, #10 TAB Prov:SHAVON QUEEN MD 01/31/17 Hydrocodone/Acetaminophen (Sedan 10-325 Tablet) 1 Each Tablet, 1 TAB PO Q6H PRN for PAIN, #7 TAB Prov:SHAVON QUEEN MD 01/31/17 Reported Medications Insulin Glargine,Hum.rec.anlog (Basaglar Kwikpen U-100) 100 Unit/1 Ml Insuln.pen, 20 UNIT SC QHS 01/31/17 Metformin Hcl* (Metformin Hcl*) 1,000 Mg Tablet, 1000 MG PO WITH BREAKFAST DINNE, #60 TAB 01/31/17 Atorvastatin Calcium* (Atorvastatin Calcium*) 20 Mg Tablet, 20 MG PO QHS, #30 TAB 01/31/17 Losartan Potassium* (Losartan Potassium*) 50 Mg Tablet, 50 MG PO DAILY, TAB 01/31/17 Gabapentin* (Gabapentin*) 300 Mg Capsule, 300 MG PO QHS, #60 CAP 01/31/17 Allergies Allergies: Coded Allergies: Penicillins (Verified Allergy, Unknown, rash, 01/31/17) PMhx/Soc History of pancreatic pseudocyst, status post cholecystectomy, hypertension, diabetes, hypercholesterolemia History of Surgery: Yes (CHOLECYSECTOMY, TUBAL LIGATION) Anesthesia Reaction: No Hx Neurological Disorder: No Hx Respiratory Disorders: No Hx Cardiac Disorders: Yes (HYPERTENSION) Hx Psychiatric Problems: No Hx Miscellaneous Medical Probl: Yes (HYPERLIPIDEMIA,DM) Hx Alcohol Use: No Hx Substance Use: No Hx Tobacco Use: No FmHx Family History: No diabetes Physical Exam Vitals Vital Signs Date Temp Pulse Resp B/P (MAP) Pulse Ox O2 O2 Flow FiO2 Time Delivery Rate 08/28/18 99.3 84 22 141/75 100 Room Air 22:24 (97) 08/28/18 101.1 90 24 143/78 99 Room Air 21:22 (99) 08/28/18 99.6 84 20 186/90 96 19:26 (122) Physical Exam Const: Well-developed well-nourished woman, appears edematous, febrile HEENT: Edema to the face, pink conjunctive a, no pharyngeal erythema or exudates, uvula is midline Resp: Clear to auscultation bilaterally Cardio: Regular rate and rhythm, no murmurs Abd: Soft, non tender, non distended. No guarding, no masses Ext: No cyanosis, 2+ pitting edema in the lower extremities bilaterally, distal pulses equal Neur: Awake and alert x3, no focal deficits or facial asymmetry, pupils equal round reactive to light, moving all extremities Psych: Normal Mood and Affect Result Diagram: 08/28/18201908/28/182019 Results 24 hrs Laboratory Tests Test 08/28/18 20:20 08/28/18 22:47 White Blood Count 10.7 10^3/ul Red Blood Count 3.13 10^6/ul Hemoglobin 8.7 g/dl Hematocrit 27.3 % Mean Corpuscular Volume 87.2 fl Mean Corpuscular Hemoglobin 27.8 pg Mean Corpuscular Hemoglobin Concent 31.9 g/dl Red Cell Distribution Width 13.2 % Platelet Count 247 10^3/UL Mean Platelet Volume 10.6 fl Immature Granulocytes % 0.400 % Neutrophils % 68.6 % Lymphocytes % 18.1 % Monocytes % 11.7 % Eosinophils % 1.0 % Basophils % 0.2 % Nucleated Red Blood Cells % 0.0 /100WBC Immature Granulocytes # 0.040 10^3/ul Neutrophils # 7.3 10^3/ul Lymphocytes # 1.9 10^3/ul Monocytes # 1.3 10^3/ul Eosinophils # 0.1 10^3/ul Basophils # 0.0 10^3/ul Nucleated Red Blood Cells # 0.0 10^3/ul Urine Color YELLOW Urine Clarity CLEAR Urine pH 7.0 Urine Specific Fowler 1.008 Urine Ketones NEGATIVE mg/dL Urine Nitrite NEGATIVE mg/dL Urine Bilirubin NEGATIVE mg/dL Urine Urobilinogen NEGATIVE mg/dL Urine Leukocyte Esterase 2+ Christina/ul Urine Microscopic RBC 4 /HPF Urine Microscopic WBC 67 /HPF Urine Hemoglobin NEGATIVE mg/dL Urine Glucose 3+ mg/dL Urine Total Protein 3+ mg/dl Sodium Level 131 mmol/L Potassium Level 4.7 mmol/L Chloride Level 103 mmol/L Carbon Dioxide Level 22 mmol/L Anion Gap 6 Blood Urea Nitrogen 35 mg/dl Creatinine 2.57 mg/dl Est Glomerular Filtrat Rate mL/min 19 mL/min Glucose Level 360 mg/dl Calcium Level 8.2 mg/dl Total Bilirubin 0.5 mg/dl Direct Bilirubin 0.00 mg/dl Indirect Bilirubin 0.5 mg/dl Aspartate Amino Transf (AST/SGOT) 24 IU/L Alanine Aminotransferase (ALT/SGPT) 21 IU/L Alkaline Phosphatase 116 IU/L Troponin I 0.015 ng/ml B-Type Natriuretic Peptide 5910 PG/ML Total Protein 7.1 g/dl Albumin 3.4 g/dl Globulin 3.70 g/dl Albumin/Globulin Ratio 0.91 Lipase 59 U/L POC Venous Lactate 0.3 mmol/L Current Medications Medications Dose Sig/Wilson Start Time Status Last (Trade) Ordered Route PRN Stop Time Admin Dose Reason Admin Sodium 1,000 ml @ Q1H STAT 08/28/18 DC 08/28/18 Chloride 1,000 mls/hr IV 20:43 21:05 08/28/18 21:42 Ondansetron 4 mg ONCE STAT 08/28/18 DC 08/28/18 HCl (Zofran IV 20:43 21:05 Inj) 08/28/18 20:45 Ketorolac 15 mg ONCE STAT 08/28/18 DC 08/28/18 Tromethamine IV 20:43 21:05 (Toradol) 08/28/18 20:45 Ceftriaxone 50 ml @ ONCE ONCE 08/28/18 DC 08/28/18 Sodium 100 mls/hr IVPB 21:30 21:37 08/28/18 21:59 IV Flush 3 ml PER 5/26/19 (NS 3 ml) PROTOCOL IV 22:00 Ondansetron 4 mg Q6H PRN 08/28/18 HCl (Zofran IV 22:00 Inj) NAUSEA/VOMITI NG 650 mg Q6H PRN 08/28/18 Acetaminophen PO .PAIN 1-3 22:00 (Tylenol OR TEMP Tab) Heparin 5,000 unit Q12 SC 08/29/18 Sodium 09:00 (Porcine) (Heparin (5000 Units/1ml)) Albuterol/ 3 ml Q2H RESP 08/28/18 Ipratropium THERAPY PRN 22:00 (Duoneb) HHN SHORTNESS OF BREATH 20 mg QHS PO 08/28/18 Atorvastatin 22:00 Calcium (Lipitor) Gabapentin 300 mg QHS PO 08/29/18 DC (Neurontin) 21:00 08/29/18 21:00 1 tab Q6H PRN 08/28/18 Acetaminophen PO PAIN 22:00 / Hydrocodone Bitart (Sedan (10/325)) Insulin 20 unit QHS SC 08/28/18 Glargine 22:00 (Lantus) Senna 1 tab DAILY PO 08/29/18 (Senokot) 09:00 Ceftriaxone 50 ml @ Q24H IVPB 08/29/18 Sodium 100 mls/hr 21:30 Discontinue ONCE ONCE 08/28/18 DC Miscellaneous current oral XX 22:00 sulfonylur... 08/28/18 22:18 Information (* Miscellaneous Pharmacy Order) Diagnostic 1 ea 02 XX 08/29/18 Test (Pha) 02:00 (Accu-Chek) ONCE ONCE 08/28/18 DC Miscellaneous HYPOGLYCEMIA XX 22:00 PROTOCOL 08/28/18 22:18 Information w... (* Miscellaneous Pharmacy Order) Insulin NOVOLOG WITH MEALS 08/29/18 Aspart *MILD* BEDTIME SC 08:00 (Novolog ALGORITHM Insulin Pen) Discontinue ONCE ONCE 08/28/18 DC Miscellaneous all previ... XX 22:00 08/28/18 22:18 Information (* Miscellaneous Pharmacy Order) Gabapentin 300 mg QHS PO 08/28/18 (Neurontin) 22:00 Azithromycin 250 ml @ ONCE ONCE 08/28/18 250 mls/hr IVPB 23:00 08/28/18 23:59 Procedures/MDM IV line was established patient was placed on cardiac specialist rhythm strip revealed a sinus rhythm at about 80 bpm with upright P and T waves. Patient was febrile, blood and urine cultures have been ordered results are pending I will follow-up. 1 view chest x-ray performed, read by me revealed cardiomegaly and right lower lobe infiltrate, no pneumothorax, no air under the diaphragm EKG performed, read by me revealed a normal sinus rhythm 89 bpm, normal axis, narrow QRS complex, no concerning ST elevations or depressions noted I administered 1 L normal saline IV and Toradol 15 mg IV and Zofran 4 mg IV for complaints of pain, fever, nausea. I do not suspect sepsis and lactic acid was undetectable. CBC reveals anemia, electrolytes reveal acute kidney injury with a BUN/creati nine of 35/2.6, liver function tests normal, troponin negative, BNP elevated, urinalysis positive for infection I treated the patient here with ceftriaxone 1 g IV and azithromycin 500 mg IV. CRITICAL CARE: Critical care time 55 minutes, this was time separate from other billable procedures. Emergent fluid management while maintaining close respiratory support. Provision of immediate and broad-spectrum antibiotic therapy. Simultaneous assessment for possible sources in order to direct targeted therapy. Consideration for invasive and chemical support to prevent cardiopulmonary collapse. Critical care time is independent of procedures performed. Accepting Care Team: Current data and ongoing care discussed. Time: Time of admission Primary Provider: Hospitalist Consulting: Infectious disease, nephrology, cardiology, pulmonology Outstanding Data: none Departure Diagnosis: Primary Impression: Acute UTI Additional Impressions: Pneumonia Pneumonia type: due to unspecified organism Laterality: right Lung loc ation: lower lobe of lung Qualified Codes: J18.1 - Lobar pneumonia, unspecified organism Anemia Anemia type: unspecified type Qualified Codes: D64.9 - Anemia, unspecified Acute kidney injury Proteinuria Proteinuria type: unspecified Qualified Codes: R80.9 - Proteinuria, unspecified Condition: Serious ARLEEN PEREZ MD August 28, 2018 20:39
[2018-08-28] MEDS ORDERED: SOD CHLORIDE 0.9% 1,000 ML IV STA (20:43)
[2018-08-28] MEDS ORDERED: KETOROLAC 15 MG INJ IV STA (20:43)
[2018-08-28] MEDS ORDERED: ONDANSETRON 4 MG INJ IV STA (20:43)
[2018-08-28] MEDS ORDERED: CEFTRIAXONE 1 GM/50 ML (PMX) 50 ML IVPB ONE (21:30)
[2018-08-28] MEDS ORDERED: GABAPENTIN 300 MG CAP PO SCH (22:00)
[2018-08-28] MEDS ORDERED: ALBUTEROL/IPRATROPIUM (NEB) 3 ML AMP HHN PRN (22:00)
[2018-08-28] MEDS ORDERED: NACL 0.9% 3 ML SYG IV SCH (22:00)
[2018-08-28] MEDS ORDERED: ACETAMINOPHEN 325 MG TAB PO PRN (22:00)
--- NOTE | 2018-08-28 22:05 | HP ---
Date/Time of Note Date/Time of Note DATE: 08/28/18 TIME: 22:05 Assessment/Plan VTE Prophylaxis Pharmacological prophylaxis: heparin Lines/Catheters IV Catheter Type (from Nrs): Saline Lock Assessment/Plan Assessment/Plan 1. Sepsis: Secondary to UTI pneumonia -IV antibiotic, IV fluid -Follow-up culture results 2. Presumed acute renal insufficiency -Urine electrolytes -will give albumin -Renal ultrasound -Nephrology consult in a.m. 3. Acute on chronic anemia -Check FOBT and iron/ferritin to work-up for GI bleed and iron deficiency -GI consult as needed 4. Type 2 diabetes, insulin-dependent: Continue insulin, adjust as needed 5. Dyslipidemia: Statin 6. Hypertension: BP not at goal. Adjust antihypertensive as needed Result Diagram: 08/28/18201908/28/182019 Results 24hrs Laboratory Tests Test 08/28/18 20:20 White Blood Count 10.7 # Red Blood Count 3.13 #L Hemoglobin 8.7 #L Hematocrit 27.3 L Mean Corpuscular Volume 87.2 Mean Corpuscular Hemoglobin 27.8 L Mean Corpuscular Hemoglobin Concent 31.9 L Red Cell Distribution Width 13.2 Platelet Count 247 Mean Platelet Volume 10.6 H Immature Granulocytes % 0.400 Neutrophils % 68.6 Lymphocytes % 18.1 Monocytes % 11.7 H Eosinophils % 1.0 Basophils % 0.2 Nucleated Red Blood Cells % 0.0 Immature Granulocytes # 0.040 H Neutrophils # 7.3 Lymphocytes # 1.9 Monocytes # 1.3 H Eosinophils # 0.1 Basophils # 0.0 Nucleated Red Blood Cells # 0.0 Urine Color YELLOW Urine Clarity CLEAR Urine pH 7.0 Urine Specific Dalton 1.008 Urine Ketones NEGATIVE Urine Nitrite NEGATIVE Urine Bilirubin NEGATIVE Urine Urobilinogen NEGATIVE Urine Leukocyte Esterase 2+ H Urine Microscopic RBC 4 Urine Microscopic WBC 67 H Urine Hemoglobin NEGATIVE Urine Glucose 3+ H Urine Total Protein 3+ H Sodium Level 131 L Potassium Level 4.7 Chloride Level 103 Carbon Dioxide Level 22 Anion Gap 6 Blood Urea Nitrogen 35 H Creatinine 2.57 H Est Glomerular Filtrat Rate mL/min 19 L Glucose Level 360 H Calcium Level 8.2 L Total Bilirubin 0.5 Direct Bilirubin 0.00 Indirect Bilirubin 0.5 Aspartate Amino Transf (AST/SGOT) 24 Alanine Aminotransferase (ALT/SGPT) 21 Alkaline Phosphatase 116 Troponin I 0.015 B-Type Natriuretic Peptide 5910 H Total Protein 7.1 Albumin 3.4 Globulin 3.70 H Albumin/Globulin Ratio 0.91 Lipase 59 HPI/ROS Admit Date/Time Admit Date/Time Hx of Present Illness This is a 52-year-old female with a history of hypertension, insulin-dependent type 2 diabetes, dyslipidemia, pyelonephritis who presents the ER complaining of lower extremity swelling, cough, shortness of breath, generalized body ache. In the ER, she was febrile with a temperature of 101. Labs shows a creatinine of 2.6, hemoglobin 8.7. Chest x-ray shows mild cardiomegaly and right lower lobe infiltrate. PMH/Family/Social Past Medical History Medical History: other (See HPI) Coded Allergies: Penicillins (Verified Allergy, Unknown, rash, 01/31/17) Past Surgical History Past Surgical Hx: other (See HPI) Family History Significant Family History: no pertinent family hx Social History Alcohol Use: none Smoking Status: Never smoker Drug Use: none Exam/Review of Systems Vital Signs Vitals Vital Signs Date Temp Pulse Resp B/P (MAP) Pulse Ox O2 O2 Flow FiO2 Time Delivery Rate 08/28/18 101.1 90 24 143/78 99 Room Air 21:22 (99) Exam Constitutional: other (No acute distress) Head: normocephalic Eyes: PERRL Respiratory: normal air movement Cardiovascular: regular rate and rhythm Gastrointestinal: soft Extremities: edema JOSEPHINE COVARRUBIAS MD August 28, 2018 22:05
[2018-08-28 22:55] VITALS: PULSE 82
[2018-08-28] MEDS ORDERED: AZITHROMYCIN 500MG/NS (PMX) 250 ML IVPB ONE (23:00)
[2018-08-28 23:03] VITALS: Ht 154.9 cm; Wt 66.1 kg
[2018-08-28 23:04] VITALS: BP 138/67; PULSE 74; RESP 18
[2018-08-28] MEDS: ATORVASTATIN 20 MG TAB PO SCH (23:42)
[2018-08-28] MEDS: HYDROCODONE/APAP (10/325) TAB PO PRN (23:42)
[2018-08-28] MEDS ORDERED: GLUCOSE GEL 15 GRAM TUBE BUCCAL PRN (23:45)
[2018-08-28] MEDS ORDERED: GLUCAGON 1 MG INJ IM PRN (23:45)
[2018-08-28] MEDS ORDERED: GLUCOSE GEL 15 GRAM TUBE PO PRN ×2 (23:45)
[2018-08-28] MEDS ORDERED: DEXTROSE 50% 50 ML SYRINGE IV PRN ×2 (23:45)
[2018-08-29] VITALS (12 sets, daily range): BP systolic 115–160; BP diastolic 63–76; PULSE 64–83; RESP 18–21
[2018-08-29] MEDS: INSULIN GLARGINE [LANtus] 3 ML PEN SC SCH ×3 (00:57→21:00)
[2018-08-29] MEDS: ACCU-CHEK XX SCH (02:00)
[2018-08-29] MEDS: ONDANSETRON 4 MG INJ IV PRN ×2 (04:36→12:49)
[2018-08-29] MEDS: SENNA TAB PO SCH (08:31)
[2018-08-29] MEDS: INSULIN ASPART [NOVOLOG] 3 ML PEN SC SCH ×5 (08:37→21:11)
[2018-08-29] MEDS ORDERED: HEPARIN 5,000 UNIT/1 ML VIAL SC SCH (09:00)
[2018-08-29] MEDS: HYDROCODONE/APAP (10/325) TAB PO PRN (10:00)
[2018-08-29] MEDS ORDERED: INSULIN ASPART [NOVOLOG] 3 ML PEN SC ONE (13:30)
--- NOTE | 2018-08-29 15:51 | PN ---
Date/Time of Note Date/Time of Note DATE: 08/29/18 TIME: 15:46 Assessment/Plan VTE Prophylaxis Risk score (from Ns)>0 risk: 3 SCD applied (from Ns): No SCD contraindicated: other Pharmacological prophylaxis: NA/contraindicated Pharm contraindication: low risk/ambulating Lines/Catheters IV Catheter Type (from [facility]): Peripheral IV Assessment/Plan Hospital Course SUBJECTIVE: Today patient had 2 episodes of nonbilious/nonbloody vomiting. She is also complaining of acid reflux and abdominal discomfort. OBJECTIVE: Vital signs-see below PHYSICAL EXAM: Constitutional: Adequately built,not in acute distress. HEENT: Head atraumatic and normocephalic. Eyes: Extraocular muscles intact. Anicteric sclerae. Pupils equal bilaterally, reactive to light. NECK: Supple without lymph node. CHEST: Clear and good breath sounds equally. No wheezing. No rhonchi. HEART: S1, S2. Regular rate and rhythm. ABDOMEN: Soft/non tender with no rebound tenderness. Bowel sounds were present. EXTREMITIES: No cyanosis, clubbing or edema. NEUROLOGIC: Alert and oriented x3. No focal deficit. No sensory deficit. PSYCHOSOCIAL: No signs of depression. INTEGUMENTARY: No open wounds. ASSESSMENT AND PLAN:52 yo F w/DM2,htn,dlp,hep C here multiple complaints including w/abd pain/n/v,generalized body ache,cough/sob/fevers... Pneumonia, community-acquired -On ceftriaxone. Add azithromycin to it. -Influenza swabs Abdominal pain/N/V --pt also had diarrhea a week ago which is resolved spontaneously -Rule out gastroenteritis versus PUD versus gastroparesis versus others -Abdominal CT -GI consult for consideration for EGD -PPI/erythromycin base/Reglan/Zofran -Diet as tolerated Hepatitis C -Likely culprit of recurrent abdominal symptoms -Follow GI recommendations Acute kidney injury versus CKD -Nephrology consultation -Continue holding losartan for now -Monitor renal function closely and avoid nephrotoxins. Anemia -Iron panel noted. We will give 1 dose IV iron followed by oral replacement -Consider EGD to rule out GI bleed per discretion of GI team -Pending stool OB -Stop Heparin for now DMII, poorly controlled -Start basal/pre-meal bolus insulin. -Continue Accu-Cheks/sliding scale Dyslipidemia -On statin Elevated BNP -Proceed with TTE Essential hypertension -Continue holding losartan in light of acute kidney injury. Will start low-dose metoprolol. DVT prophylaxis: SCDs PUD prophylaxis: PPI Disposition: Continue current management. Follow-up GI/nephrology recommendations. Patient was seen in collaboration with Dr. Arroyo. Result Diagram: 08/29/18 1353 08/29/18 0625 Results 24hrs Laboratory Tests Test 08/28/18 20:20 08/28/18 22:47 08/29/18 01:06 08/29/18 04:38 White Blood Count 10.7 # Red Blood Count 3.13 #L Hemoglobin 8.7 #L Hematocrit 27.3 L Mean Corpuscular 87.2 Volume Mean Corpuscular 27.8 L Hemoglobin Mean Corpuscular 31.9 L Hemoglobin Concent Red Cell 13.2 Distribution Width Platelet Count 247 Mean Platelet Volume 10.6 H Immature 0.400 Granulocytes % Neutrophils % 68.6 Lymphocytes % 18.1 Monocytes % 11.7 H Eosinophils % 1.0 Basophils % 0.2 Nucleated Red Blood 0.0 Cells % Immature 0.040 H Granulocytes # Neutrophils # 7.3 Lymphocytes # 1.9 Monocytes # 1.3 H Eosinophils # 0.1 Basophils # 0.0 Nucleated Red Blood 0.0 Cells # Urine Color YELLOW Urine Clarity CLEAR Urine pH 7.0 Urine Specific 1.008 [place] Urine Ketones NEGATIVE Urine Nitrite NEGATIVE Urine Bilirubin NEGATIVE Urine Urobilinogen NEGATIVE Urine Leukocyte 2+ H Esterase Urine Microscopic 4 RBC Urine Microscopic 67 H WBC Urine Hemoglobin NEGATIVE Urine Glucose 3+ H Urine Total Protein 3+ H Sodium Level 131 L Potassium Level 4.7 Chloride Level 103 Carbon Dioxide Level 22 Anion Gap 6 Blood Urea Nitrogen 35 H Creatinine 2.57 H Est Glomerular 19 L Filtrat Rate mL/min Glucose Level 360 H Calcium Level 8.2 L Total Bilirubin 0.5 Direct Bilirubin 0.00 Indirect Bilirubin 0.5 Aspartate Amino 24 Transf (AST/SGOT) Alanine 21 Aminotransferase (AL T/SGPT) Alkaline Phosphatase 116 Troponin I 0.015 B-Type Natriuretic 5910 H Peptide Total Protein 7.1 Albumin 3.4 Globulin 3.70 H Albumin/Globulin 0.91 Ratio Lipase 59 POC Venous Lactate 0.3 L Bedside Glucose 320 H 235 H Test 08/29/18 06:25 08/29/18 08:05 08/29/18 11:52 08/29/18 13:16 White Blood Count 7.4 # Red Blood Count 2.59 L Hemoglobin 7.1 L Hematocrit 22.6 L Mean Corpuscular 87.3 Volume Mean Corpuscular 27.4 L Hemoglobin Mean Corpuscular 31.4 L Hemoglobin Concent Red Cell 13.2 Distribution Width Platelet Count 204 Mean Platelet Volume 10.6 H Immature 0.500 H Granulocytes % Neutrophils % 68.3 Lymphocytes % 18.3 Monocytes % 11.1 H Eosinophils % 1.4 Basophils % 0.4 Nucleated Red Blood 0.0 Cells % Immature 0.040 H Granulocytes # Neutrophils # 5.0 Lymphocytes # 1.4 Monocytes # 0.8 Eosinophils # 0.1 Basophils # 0.0 Nucleated Red Blood 0.0 Cells # Sodium Level 132 L Potassium Level 4.9 Chloride Level 108 Carbon Dioxide Level 22 Anion Gap 2 L Blood Urea Nitrogen 36 H Creatinine 2.53 H Est Glomerular 20 L Filtrat Rate mL/min Glucose Level 218 # Hemoglobin A1c 8.2 H Calcium Level 7.6 L Magnesium Level 2.1 Iron Level < 10 L Total Iron Binding 212 L Capacity Percent Iron Saturation Ferritin 45.4 Total Bilirubin 0.3 Direct Bilirubin 0.00 Indirect Bilirubin 0.3 Aspartate Amino 17 Transf (AST/SGOT) Alanine 22 Aminotransferase (AL T/SGPT) Alkaline Phosphatase 78 Total Protein 5.7 #L Albumin 2.5 L Globulin 3.20 Albumin/Globulin 0.78 Ratio Triglycerides Level 95 Cholesterol Level 102 LDL Cholesterol, 47 Calculated HDL Cholesterol 36 L Cholesterol/HDL 2.8 Ratio Bedside Glucose 223 H 234 H 173 Test 08/29/18 13:53 Hemoglobin 7.6 L Hematocrit 23.6 L Exam/Review of Systems Exam Vitals Vital Signs Date Temp Pulse Resp B/P (MAP) Pulse Ox O2 O2 Flow FiO2 Time Delivery Rate 08/29/18 2.0 15:27 08/29/18 71 12:00 08/29/18 98.8 19 129/66 94 Nasal 11:19 (87) Cannula Intake and Output 08/28/18 08/28/18 08/29/18 1515:00 23:00 07:00 IntakeIntake Total 300 ml BalanceBalance 300 ml Results Results 24hrs Laboratory Tests Test 08/28/18 20:20 08/28/18 22:47 08/29/18 01:06 08/29/18 04:38 White Blood Count 10.7 # Red Blood Count 3.13 #L Hemoglobin 8.7 #L Hematocrit 27.3 L Mean Corpuscular 87.2 Volume Mean Corpuscular 27.8 L Hemoglobin Mean Corpuscular 31.9 L Hemoglobin Concent Red Cell 13.2 Distribution Width Platelet Count 247 Mean Platelet Volume 10.6 H Immature 0.400 Granulocytes % Neutrophils % 68.6 Lymphocytes % 18.1 Monocytes % 11.7 H Eosinophils % 1.0 Basophils % 0.2 Nucleated Red Blood 0.0 Cells % Immature 0.040 H Granulocytes # Neutrophils # 7.3 Lymphocytes # 1.9 Monocytes # 1.3 H Eosinophils # 0.1 Basophils # 0.0 Nucleated Red Blood 0.0 Cells # Urine Color YELLOW Urine Clarity CLEAR Urine pH 7.0 Urine Specific 1.008 [place] Urine Ketones NEGATIVE Urine Nitrite NEGATIVE Urine Bilirubin NEGATIVE Urine Urobilinogen NEGATIVE Urine Leukocyte 2+ H Esterase Urine Microscopic 4 RBC Urine Microscopic 67 H WBC Urine Hemoglobin NEGATIVE Urine Glucose 3+ H Urine Total Protein 3+ H Sodium Level 131 L Potassium Level 4.7 Chloride Level 103 Carbon Dioxide Level 22 Anion Gap 6 Blood Urea Nitrogen 35 H Creatinine 2.57 H Est Glomerular 19 L Filtrat Rate mL/min Glucose Level 360 H Calcium Level 8.2 L Total Bilirubin 0.5 Direct Bilirubin 0.00 Indirect Bilirubin 0.5 Aspartate Amino 24 Transf (AST/SGOT) Alanine 21 Aminotransferase (AL T/SGPT) Alkaline Phosphatase 116 Troponin I 0.015 B-Type Natriuretic 5910 H Peptide Total Protein 7.1 Albumin 3.4 Globulin 3.70 H Albumin/Globulin 0.91 Ratio Lipase 59 POC Venous Lactate 0.3 L Bedside Glucose 320 H 235 H Test 08/29/18 06:25 08/29/18 08:05 08/29/18 11:52 08/29/18 13:16 White Blood Count 7.4 # Red Blood Count 2.59 L Hemoglobin 7.1 L Hematocrit 22.6 L Mean Corpuscular 87.3 Volume Mean Corpuscular 27.4 L Hemoglobin Mean Corpuscular 31.4 L Hemoglobin Concent Red Cell 13.2 Distribution Width Platelet Count 204 Mean Platelet Volume 10.6 H Immature 0.500 H Granulocytes % Neutrophils % 68.3 Lymphocytes % 18.3 Monocytes % 11.1 H Eosinophils % 1.4 Basophils % 0.4 Nucleated Red Blood 0.0 Cells % Immature 0.040 H Granulocytes # Neutrophils # 5.0 Lymphocytes # 1.4 Monocytes # 0.8 Eosinophils # 0.1 Basophils # 0.0 Nucleated Red Blood 0.0 Cells # Sodium Level 132 L Potassium Level 4.9 Chloride Level 108 Carbon Dioxide Level 22 Anion Gap 2 L Blood Urea Nitrogen 36 H Creatinine 2.53 H Est Glomerular 20 L Filtrat Rate mL/min Glucose Level 218 # Hemoglobin A1c 8.2 H Calcium Level 7.6 L Magnesium Level 2.1 Iron Level < 10 L Total Iron Binding 212 L Capacity Percent Iron Saturation Ferritin 45.4 Total Bilirubin 0.3 Direct Bilirubin 0.00 Indirect Bilirubin 0.3 Aspartate Amino 17 Transf (AST/SGOT) Alanine 22 Aminotransferase (AL T/SGPT) Alkaline Phosphatase 78 Total Protein 5.7 #L Albumin 2.5 L Globulin 3.20 Albumin/Globulin 0.78 Ratio Triglycerides Level 95 Cholesterol Level 102 LDL Cholesterol, 47 Calculated HDL Cholesterol 36 L Cholesterol/HDL 2.8 Ratio Bedside Glucose 223 H 234 H 173 Test 08/29/18 13:53 Hemoglobin 7.6 L Hematocrit 23.6 L Medications Medication Current Medications IV Flush (NS 3 ml) 3 ml PER PROTOCOL IV ; Start 08/28/18 at 22:00 Ondansetron HCl (Zofran Inj) 4 mg Q6H PRN IV NAUSEA/VOMITING Last administered on 08/29/18at 12:49; Admin Dose 4 MG; Start 08/28/18 at 22:00 Acetaminophen (Tylenol Tab) 650 mg Q6H PRN PO .PAIN 1-3 OR TEMP; Start 08/28/18 at 22:00 Heparin Sodium (Porcine) (Heparin (5000 Units/1ml)) 5,000 unit Q12 SC ; Start 08/29/18 at 09:00 Albuterol/ Ipratropium (Duoneb) 3 ml Q2H RESP THERAPY PRN HHN SHORTNESS OF BREATH; Start 08/28/18 at 22:00 Atorvastatin Calcium (Lipitor) 20 mg QHS PO Last administered on 08/28/18at 23:42; Admin Dose 20 MG; Start 08/28/18 at 22:00 Acetaminophen/ Hydrocodone Bitart ([place]mer (10/325)) 1 tab Q6H PRN PO PAIN Last administered on 08/29/18at 10:00; Admin Dose 1 TAB; Start 08/28/18 at 22:00 Insulin Glargine (Lantus) 20 unit QHS SC Last administered on 08/29/18at 01:39; Admin Dose 20 UNIT; Start 08/28/18 at 22:00 Senna (Senokot) 1 tab DAILY PO Last administered on 08/29/18at 08:31; Admin Dose 1 TAB; Start 08/29/18 at 09:00 Ceftriaxone Sodium 50 ml @ 100 mls/hr Q24H IVPB ; Start 08/29/18 at 21:30 Diagnostic Test (Pha) (Accu-Chek) 1 ea 02 XX ; Start 08/29/18 at 02:00 Insulin Aspart (Novolog Insulin Pen) NOVOLOG *MILD* ALGORITHM WITH MEALS BEDTIME SC Last administered on 08/29/18at 12:11; Admin Dose 3 UNIT; Start 08/29/18 at 07:55 Miscellaneous Information 1 ea NOTE XX ; Start 08/28/18 at 23:45 Glucose (Glutose) 15 gm Q15M PRN PO DECREASED GLUCOSE; Start 08/28/18 at 23:45 Glucose (Glutose) 22.5 gm Q15M PRN PO DECREASED GLUCOSE; Start 08/28/18 at 23:45 Dextrose (D50w Syringe) 25 ml Q15M PRN IV DECREASED GLUCOSE; Start 08/28/18 at 23:45 Dextrose (D50w Syringe) 50 ml Q15M PRN IV DECREASED GLUCOSE; Start 08/28/18 at 23:45 Glucagon (Glucagen) 1 mg Q15M PRN IM DECREASED GLUCOSE; Start 08/28/18 at 23:45 Glucose (Glutose) 15 gm Q15M PRN BUCCAL DECREASED GLUCOSE; Start 08/28/18 at 23:45 Insulin Aspart (Novolog Insulin Pen) 4 unit WITH MEALS SC ; Start 08/29/18 at 17:55 Ferric Sodium Gluconate Complex 125 mg/Sodium Chloride 100 ml @ 100 mls/hr ONCE ONCE IVPB ; Start 08/29/18 at 15:30; Stop 08/29/18 at 16:29; Status UNV Ferrous Sulfate (Ferrous Sulfate (Ec)) 325 mg BID PO ; Start 08/29/18 at 21:00; Status UNV Pantoprazole (Protonix Iv) 40 mg BID@06,18 IV ; Start 08/29/18 at 18:00; Status UNV Gabapentin (Neurontin) 100 mg TID PO ; Start 08/29/18 at 21:00; Status UNV Erythromycin (Erythromycin Base (Ec)) 250 mg Q8 PO ; Start 08/29/18 at 22:00; Status UNV Metoclopramide HCl (Reglan) 5 mg Q6 IV ; Start 08/29/18 at 18:00; Stop 08/30/18 at 17:59; Status UNV FRANCE BUCKLEY NP August 29, 2018 15:51
[2018-08-29] MEDS: METOPROLOL 25 MG TAB PO SCH (16:31)
[2018-08-29] MEDS: AZITHROMYCIN 250 MG in SOD CHLORIDE 0.9% 250 ML IVPB SCH (16:31)
[2018-08-29] MEDS ORDERED: SOD FERRIC GLUC COMPLX 125 MG in SOD CHLORIDE 0.9% 100 ML IVPB ONE (17:00)
[2018-08-29] MEDS: PANTOPRAZOLE 40 MG INJ IV SCH (17:49)
[2018-08-29] MEDS: METOCLOPRAMIDE 10 MG INJ IV SCH (17:51)
[2018-08-29] MEDS ORDERED: hydrALAzine 20 MG INJ IV PRN (19:00)
--- NOTE | 2018-08-29 20:03 | CONS ---
DATE OF ADMISSION: 08/28/2018 DATE OF CONSULTATION: 08/29/2018 TYPE OF CONSULTATION: Nephrology. REASON FOR CONSULTATION: Chronic renal failure. PHYSICIAN REQUESTING CONSULT: Dr. Covarrubias. HISTORY OF PRESENT ILLNESS: This is a 52-year-old female with a past medical history of diabetes, hi story of hypertension, and history of dyslipidemia, who presented to the [facility] with complaints of lower extremity swelling, cough, shortness of breath, and generalized body aches. The patient states over the past several weeks and months, she has noted increased lower extr emity swelling. The patient's symptoms have progressed. The patient also describes having a fever 2 or 3 days prior to admission and generalized body aches. Upon arrival to the emergency room, the pa jenifer was febrile with a temperature of 101. Laboratory drawn showed a creatinine of 2.6. The patie nt also had chest x-ray which showed right lower lobe infiltrate. The patient was started on IV flui ds, antibiotic therapy for underlying UTI, and pneumonia. Admitted to telemetry for evaluation. In terms of patient's renal history, the patient denies any prior history of coronary kidney disease. The patient's previous baseline creatinine in 2017 was 0.7 mg/dL. The patient does describe a hist ory of uncontrolled diabetes. Denies any rashes, any frothy urine, any hematuria, or any colored uri ne. The patient denies any NSAID use. PAST MEDICAL HISTORY: As stated above, history of diabetes and history of hypertension. PAST SURGICAL HISTORY: None. ALLERGIES: NO KNOWN DRUG ALLERGIES. FAMILY HISTORY: No family history of kidney disease. SOCIAL HISTORY: Does not drink, smoke or do drugs. MEDICATIONS: The patient's medications have been reviewed. The patient's laboratory data has been r eviewed. REVIEW OF SYSTEMS: A 14-point review of systems is conducted. Pertinent positives stated in HPI, ot herwise negative. PHYSICAL EXAMINATION: VITAL SIGNS: Blood pressure 115/75, respirations 20, pulse 72, temperature 97.5. HEENT: Head is normocephalic. NECK: Supple. HEART: Regular rate. LUNGS: Show diminished breath sounds at the base. ABDOMEN: Soft, nontender to palpation. No rebound or guarding. EXTREMITIES: Negative for clubbing or cyanosis. Trace edema. DERMATOLOGIC: No rashes. MUSCULOSKELETAL: No joint effusions. NEUROLOGIC: No focal deficits. The patient's medications were reviewed. Laboratory data has been reviewed. Imaging studies includi ng renal ultrasound was reviewed. ASSESSMENT AND PLAN: This is a 52-year-old female who presents with: 1. Renal failure, possible acute kidney injury versus chronic kidney disease. The patient's urinaly sis was reviewed, showing evidence of increased echogenicity consistent with chronic kidney disease. Urinalysis also shows +3 proteinuria and pyuria. Plan at this point is to recheck UA with microanal ysis. Will check urine electrolytes. We will quantify patient's proteinuria. Would continue treatm ent, continue current medical management, continue antibiotic therapy. Continue renal dose medicatio ns, avoid nephrotoxins and monitor closely. 2. Anemia. The patient's iron panel suggests evidence of iron deficiency. Continue IV Ferrlecit. Monitor I's and O's closely. 3. Mineral bone disorder. Monitor calcium and phosphorus levels. 4. Sepsis secondary to urinary tract infection and pneumonia. Continue antibiotic therapy. Follow up urine culture. 5. Abdominal pain. Etiology may be secondary to gastritis. Continue to monitor. Follow up CT scan . 6. History of hepatitis C. Continue to monitor. 7. Diabetes. Continue current insulin regimen. 8. Dyslipidemia. Continue statin therapy. 9. Hypertension. Continue current blood pressure regimen. Defer any JUMANA inhibitor or ARB in the se tting of acute kidney injury. 10. Hyponatremia secondary to acute kidney injury. 11. Decreased free water urinary excretion. Will continue to monitor. Thank you, Jason, for this interesting consult. It will be a pleasure to follow patient with you th roughout the hospital course. Dictated By: NICOLAS HALL DO NR/NTS Conf#: [id number] DID#: [id number] CC: JASON COVARRUBIAS MD;*EndCC*
[2018-08-29] MEDS: FERROUS SULFATE (EC) 325 MG TAB PO SCH (20:51)
[2018-08-29] MEDS: ATORVASTATIN 20 MG TAB PO SCH (20:51)
[2018-08-29] MEDS: GABAPENTIN 100 MG CAP PO SCH (20:52)
[2018-08-29] MEDS ORDERED: GABAPENTIN 300 MG CAP PO SCH (21:00)
[2018-08-29] MEDS: DOCUSATE SODIUM 100 MG CAP PO SCH (22:46)
[2018-08-29] MEDS: ERYTHROMYCIN BASE (DR) 250 MG CAP PO SCH (22:46)
[2018-08-29] MEDS: CEFTRIAXONE 1 GM/50 ML (PMX) 50 ML IVPB SCH (22:46)
[2018-08-29] MEDS: POLYETHYLENE GLYCOL 17 GM PACKET PO SCH (22:46)
[2018-08-29] MEDS ORDERED: INSULIN GLARGINE [LANTus] (100 UNITS/ML) SYG SC STA (23:28)
[2018-08-30] VITALS (10 sets, daily range): BP systolic 136–148; BP diastolic 64–76; PULSE 63–72; RESP 18–20
[2018-08-30] MEDS: METOCLOPRAMIDE 10 MG INJ IV SCH ×3 (00:20→12:26)
[2018-08-30] MEDS: ACCU-CHEK XX SCH (02:00)
[2018-08-30] MEDS: ERYTHROMYCIN BASE (DR) 250 MG CAP PO SCH ×3 (05:53→22:25)
[2018-08-30] MEDS: PANTOPRAZOLE 40 MG INJ IV SCH ×2 (05:53→17:36)
[2018-08-30] MEDS: INSULIN ASPART [NOVOLOG] 3 ML PEN SC SCH ×7 (08:18→20:51)
[2018-08-30] MEDS: SENNA TAB PO SCH (08:20)
[2018-08-30] MEDS: DOCUSATE SODIUM 100 MG CAP PO SCH ×2 (08:20→20:50)
[2018-08-30] MEDS: GABAPENTIN 100 MG CAP PO SCH ×3 (08:20→20:50)
[2018-08-30] MEDS: METOPROLOL 25 MG TAB PO SCH (08:20)
[2018-08-30] MEDS: POLYETHYLENE GLYCOL 17 GM PACKET PO SCH (08:20)
[2018-08-30] MEDS: FERROUS SULFATE (EC) 325 MG TAB PO SCH ×2 (08:20→20:50)
--- NOTE | 2018-08-30 09:43 | PN ---
DATE: 08/30/2018 SUBJECTIVE: The patient is stable. No events overnight. No fevers, chills, nausea or vomiting. OBJECTIVE: VITAL SIGNS: Blood pressure is 148/72, respirations 18, pulse 69, temperature 98.9. HEENT: Head is normocephalic. NECK: Supple. HEART: Regular rate. LUNGS: Show diminished breath sounds at the base. ABDOMEN: Soft, nontender to palpation without rebound or guarding. EXTREMITIES: Negative for clubbing, cyanosis, no edema. DERMATOLOGIC: No rashes. MUSCULOSKELETAL: No joint effusion. NEUROLOGIC: No change in exam. MEDICATIONS: Reviewed. LABORATORY DATA: Reviewed. IMAGING STUDIES: Reviewed. Renal ultrasound was reviewed. ASSESSMENT AND PLAN: 1. Renal failure, possible chronic kidney disease versus acute kidney injury. The patient's urinaly sis shows evidence of pyuria. The patient has nephrotic range proteinuria with approximately 8 grams per gram of creatinine. The patient's renal ultrasound also shows increased echogenicity consistent with chronic kidney disease. Plan at this point is to continue current medical management. Continu e antibiotic therapy. Continue supportive care, renally dose all medications. Please note, we will also check serologies in the setting of nephrotic range proteinuria for further evaluation. 2. 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 The possibility of a concomitant glomerulonephropathy is less likely but a considerat ion. Plan is to check serology as stated above. We would otherwise continue current treatment plan. 3. Anemia. Continue to monitor hemoglobin and hematocrit levels. Continue IV Ferrlecit. 4. Mineral bone disorder, monitor calcium and phosphorus levels. 5. Sepsis secondary to urinary tract infection, pyelonephritis. Continue current antibiotic regimen . 6. Abdominal pain, possibly due to gastroenteritis. Continue to monitor. 7. History of hepatitis C. Continue to monitor. 8. Diabetes, continue current insulin regimen. 9. Dyslipidemia. Continue statin therapy. 10. Hypertension. Continue current blood pressure regimen. Defer an JUMANA inhibitor or ARB at this t tana. Dictated By: NICOLAS HALL DO NR/NTS Conf#: [id number] DID#: [id number] CC: JOSEPHINE COVARRUBIAS MD; NICOLAS HALL DO;*EndCC*
--- NOTE | 2018-08-30 12:16 | PN ---
Date/Time of Note Date/Time of Note DATE: 08/30/18 TIME: 12:05 Assessment/Plan VTE Prophylaxis Risk score (from Nsg)>0 risk: 2 SCD applied (from Ns): No SCD contraindicated: other Pharmacological prophylaxis: NA/contraindicated Pharm contraindication: low risk/ambulating Lines/Catheters IV C[facility]ter Type (from [facility]): Peripheral IV Assessment/Plan Hospital Course SUBJECTIVE:no Further abdominal pain, nausea or vomiting. OBJECTIVE: Vital signs-see below PHYSICAL EXAM: Constitutional: Adequately built,not in acute distress. HEENT: Head atraumatic and normocephalic. Eyes: Extraocular muscles intact. Anicteric sclerae. Pupils equal bilaterally, reactive to light. NECK: Supple without lymph node. CHEST: Clear and good breath sounds equally. No wheezing. No rhonchi. HEART: S1, S2. Regular rate and rhythm. ABDOMEN: Soft/non tender with no rebound tenderness. Bowel sounds were present. EXTREMITIES: No cyanosis, clubbing or edema. NEUROLOGIC: Alert and oriented x3. No focal deficit. No sensory deficit. PSYCHOSOCIAL: No signs of depression. INTEGUMENTARY: No open wounds. ASSESSMENT AND PLAN:52 yo F w/DM2,htn,dlp,hep C here multiple complaints includ ing w/abd pain/n/v,generalized body ache,cough/sob/fevers... Pneumonia, community-acquired -On ceftriaxone. Add azithromycin to it. -Influenza swabs Abdominal pain/N/V -pt also had diarrhea a week ago which is resolved spontaneously -Rule out gastroenteritis versus PUD versus gastroparesis versus others -Symptoms resolved with antiemetics -Pending GI evaluation. -Diet as tolerated ?Air in bladder, questionable emphysematous cystitis? -Urology follow-up. Urine cultures are pending. continue ceftriaxone. 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 Acute kidney injury versus CKD -Follow-up nephrology recommendations -Continue holding losartan for now -Monitor renal function closely and avoid nephrotoxins. Anemia -Likely chronic. -Consider EGD to rule out GI bleed per discretion of GI team -Pending stool OB DMII, poorly controlled -Stable. Continue basal/bolus insulin Dyslipidemia -On statin Elevated BNP -f/u TTE Essential hypertension -Continue holding losartan in light of acute kidney injury. -Continue metoprolol DVT prophylaxis: SCDs PUD prophylaxis: PPI Disposition: Continue current management. Follow-up GI/nephrology/urology recommendations. Patient was seen in collaboration with Dr. Arroyo. Result Diagram: 08/30/18 0555 08/30/18 0555 Results 24hrs Laboratory Tests Test 08/29/18 13:16 08/29/18 13:53 08/29/18 16:30 08/29/18 17:06 Bedside Glucose 173 132 Hemoglobin 7.6 L Hematocrit 23.6 L Urine Color YELLOW Urine Clarity SLIGHTLY CLOUDY A Urine pH 7.0 Urine Specific 1.009 [place] Urine Ketones NEGATIVE Urine Nitrite NEGATIVE Urine Bilirubin NEGATIVE Urine NEGATIVE Urobilinogen Urine Leukocyte 3+ H Esterase Urine Microscopic 1 RBC Urine Microscopic 41 H WBC Urine Squamous MANY A Epithelial Cells Urine Bacteria FEW A Urine Hemoglobin NEGATIVE Urine Random 48.68 Creatinine Urine Random 21 L Sodium Urine Random 17.4 L Potassium Urine Glucose 1+ H Urine Total 429.0 H Protein Test 08/29/18 20:57 08/30/18 03:01 08/30/18 05:55 08/30/18 07:43 Bedside Glucose 224 H 224 H 194 White Blood Count 7.2 Red Blood Count 2.64 L Hemoglobin 7.3 L Hematocrit 22.9 L Mean Corpuscular 86.7 Volume Mean Corpuscular 27.7 L Hemoglobin Mean Corpuscular 31.9 L Hemoglobin Concen t Red Cell 13.0 Distribution Width Platelet Count 220 Mean Platelet 10.6 H Volume Immature 0.300 Granulocytes % Neutrophils % 63.7 Lymphocytes % 24.1 Monocytes % 9.8 Eosinophils % 1.8 Basophils % 0.3 Nucleated Red 0.0 Blood Cells % Immature 0.020 Granulocytes # Neutrophils # 4.6 Lymphocytes # 1.7 Monocytes # 0.7 Eosinophils # 0.1 Basophils # 0.0 Nucleated Red 0.0 Blood Cells # Sodium Level 135 Potassium Level 4.3 Chloride Level 109 Carbon Dioxide 22 Level Anion Gap 4 L Blood Urea 33 H Nitrogen Creatinine 2.56 H Est Glomerular 20 L Filtrat Rate mL/min Glucose Level 188 Calcium Level 7.8 L Phosphorus Level 4.7 Magnesium Level 2.2 Exam/Review of Systems Exam Vitals Vital Signs Date Temp Pulse Resp B/P (MAP) Pulse Ox O2 O2 Flow FiO2 Time Delivery Rate 08/30/18 71 08:01 08/30/18 Nasal 2.0 08:00 Cannula 08/30/18 98.9 18 148/72 96 07:26 (97) Intake and Output 08/29/18 08/29/18 08/30/18 1515:00 23:00 07:00 IntakeIntake Total 1350 ml 50 ml BalanceBalance 1350 ml 50 ml Results Results 24hrs Laboratory Tests Test 08/29/18 13:16 08/29/18 13:53 08/29/18 16:30 08/29/18 17:06 Bedside Glucose 173 132 Hemoglobin 7.6 L Hematocrit 23.6 L Urine Color YELLOW Urine Clarity SLIGHTLY CLOUDY A Urine pH 7.0 Urine Specific 1.009 [place] Urine Ketones NEGATIVE Urine Nitrite NEGATIVE Urine Bilirubin NEGATIVE Urine NEGATIVE Urobilinogen Urine Leukocyte 3+ H Esterase Urine Microscopic 1 RBC Urine Microscopic 41 H WBC Urine Squamous MANY A Epithelial Cells Urine Bacteria FEW A Urine Hemoglobin NEGATIVE Urine Random 48.68 Creatinine Urine Random 21 L Sodium Urine Random 17.4 L Potassium Urine Glucose 1+ H Urine Total 429.0 H Protein Test 08/29/18 20:57 08/30/18 03:01 08/30/18 05:55 08/30/18 07:43 Bedside Glucose 224 H 224 H 194 White Blood Count 7.2 Red Blood Count 2.64 L Hemoglobin 7.3 L Hematocrit 22.9 L Mean Corpuscular 86.7 Volume Mean Corpuscular 27.7 L Hemoglobin Mean Corpuscular 31.9 L Hemoglobin Concen t Red Cell 13.0 Distribution Width Platelet Count 220 Mean Platelet 10.6 H Volume Immature 0.300 Granulocytes % Neutrophils % 63.7 Lymphocytes % 24.1 Monocytes % 9.8 Eosinophils % 1.8 Basophils % 0.3 Nucleated Red 0.0 Blood Cells % Immature 0.020 Granulocytes # Neutrophils # 4.6 Lymphocytes # 1.7 Monocytes # 0.7 Eosinophils # 0.1 Basophils # 0.0 Nucleated Red 0.0 Blood Cells # Sodium Level 135 Potassium Level 4.3 Chloride Level 109 Carbon Dioxide 22 Level Anion Gap 4 L Blood Urea 33 H Nitrogen Creatinine 2.56 H Est Glomerular 20 L Filtrat Rate mL/min Glucose Level 188 Calcium Level 7.8 L Phosphorus Level 4.7 Magnesium Level 2.2 Medications Medication Current Medications IV Flush (NS 3 ml) 3 ml PER PROTOCOL IV ; Start 08/28/18 at 22:00 Ondansetron HCl (Zofran Inj) 4 mg Q6H PRN IV NAUSEA/VOMITING Last administered on 08/29/18 12:49; Admin Dose 4 MG; Start 08/28/18 at 22:00 Acetaminophen (Tylenol Tab) 650 mg Q6H PRN PO .PAIN 1-3 OR TEMP Last administered on 08/29/18 16:31; Admin Dose 650 MG; Start 08/28/18 at 22:00 Albuterol/ Ipratropium (Duoneb) 3 ml Q2H RESP THERAPY PRN HHN SHORTNESS OF BREATH; Start 08/28/18 at 22:00 Atorvastatin Calcium (Lipitor) 20 mg QHS PO Last administered on 08/29/18 20:51; Admin Dose 20 MG; Start 08/28/18 at 22:00 Acetaminophen/ Hydrocodone Bitart ([place] (10/325)) 1 tab Q6H PRN PO PAIN Last administered on 08/29/18 10:00; Admin Dose 1 TAB; Start 08/28/18 at 22:00 Senna (Senokot) 1 tab DAILY PO Last administered on 08/30/18 08:20; Admin Dose 1 TAB; Start 08/29/18 at 09:00 Ceftriaxone Sodium 50 ml @ 100 mls/hr Q24H IVPB Last administered on 08/29/18 22:46; Admin Dose 100 MLS/HR; Start 08/29/18 at 21:30 Diagnostic Test (Pha) (Accu-Chek) 1 ea 02 XX Last administered on 08/30/18 02:00; Admin Dose 1 EA; Start 08/29/18 at 02:00 Insulin Aspart (Novolog Insulin Pen) NOVOLOG *MILD* ALGORITHM WITH MEALS BEDTIME SC Last administered on 08/30/18 08:18; Admin Dose 2 UNIT; Start 08/29/18 at 07:55 Miscellaneous Information 1 ea NOTE XX ; Start 08/28/18 at 23:45 Glucose (Glutose) 15 gm Q15M PRN PO DECREASED GLUCOSE; Start 08/28/18 at 23:45 Glucose (Glutose) 22.5 gm Q15M PRN PO DECREASED GLUCOSE; Start 08/28/18 at 23:45 Dextrose (D50w Syringe) 25 ml Q15M PRN IV DECREASED GLUCOSE; Start 08/28/18 at 23:45 Dextrose (D50w Syringe) 50 ml Q15M PRN IV DECREASED GLUCOSE; Start 08/28/18 at 23:45 Glucagon (Glucagen) 1 mg Q15M PRN IM DECREASED GLUCOSE; Start 08/28/18 at 23:45 Glucose (Glutose) 15 gm Q15M PRN BUCCAL DECREASED GLUCOSE; Start 08/28/18 at 23:45 Insulin Aspart (Novolog Insulin Pen) 4 unit WITH MEALS SC Last administered on 08/30/18 08:19; Admin Dose 4 UNIT; Start 08/29/18 at 17:55 Ferrous Sulfate (Ferrous Sulfate (Ec)) 325 mg BID PO Last administered on 08/30/18 08:20; Admin Dose 325 MG; Start 08/29/18 at 21:00 Pantoprazole (Protonix Iv) 40 mg BID@06,18 IV Last administered on 08/30/18 05:53; Admin Dose 40 MG; Start 08/29/18 at 18:00 Gabapentin (Neurontin) 100 mg TID PO Last administered on 08/30/18 08:20; Admin Dose 100 MG; Start 08/29/18 at 21:00 Erythromycin (Erythromycin) 250 mg Q8 PO Last administered on 08/30/18 05:53; Admin Dose 250 MG; Start 08/29/18 at 22:00 Metoclopramide HCl (Reglan) 5 mg Q6 IV Last administered on 08/30/18 05:53; Admin Dose 5 MG; Start 08/29/18 at 18:00; Stop 08/30/18 at 17:59 Azithromycin 250 mg/Sodium Chloride 250 ml @ 250 mls/hr Q24H IVPB Last administered on 08/29/18 16:31; Admin Dose 250 MLS/HR; Start 08/29/18 at 17:00 Metoprolol Tartrate (Lopressor) 25 mg DAILY PO Last administered on 08/30/18 08:20; Admin Dose 25 MG; Start 08/29/18 at 16:00 Hydralazine HCl (Apresoline) 10 mg Q6H PRN IV ELEVATED BLOOD PRESSURE; Start 08/29/18 at 19:00 Docusate Sodium (Colace) 100 mg BID PO Last administered on 08/30/18 08:20; Admin Dose 100 MG; Start 08/29/18 at 21:30 Polyethylene Glycol (Miralax) 17 gm DAILY PO Last administered on 08/30/18at 08:20; Admin Dose 17 GM; Start 08/29/18 at 21:30 Insulin Glargine (Lantus) 20 units HS SC ; Start 08/30/18 at 21:00 FRANCE BUCKLEY NP August 30, 2018 12:15
--- NOTE | 2018-08-30 12:45 | CONS ---
Assessment/Plan Assessment/Plan Hospital Course (Demo Recall) Summary Assessment and Plan: Assessment: Abdominal pain/N/V -PUD vs gastroparesis -Started on erythromycin, symptoms have improved Melena Normocytic anemia -Hx of colonoscopy 2016- Colonoscopy all the way to the cecum. No colon neoplasm was identified. Small internal hemorrhoids. DM, type 2 (poorly controlled) Hepatitis C, untreated -AB positive (RNA not available) -Pt states she was diagnosed last month, has an appt tomorrow- instructed to reschedule CAP- on antibiotic treatment per medical team Air in bladder, on imaging -Cystitis with emphysematous pyelonephritis is a possibility. Air introduced from recent prior instrumentation procedure is within the differential. Scattered bilateral perinephric stranding and edema, chronic. Pyelonephritis could cause this appearance. -Urology following -Pt on antibiotics Renal insufficiency -Nephrology following Pancreatic atrophy with chronic pseudocyst of the tail of the pancreas Dyslipidemia Elevated BNP Plan: Continue PPI BID NPO after midnight except meds EGD tomorrow Endoscopy - risks/benefits/alternatives/indications of procedure and sedation/anesthesia discussed with patient who states understanding and gives informed consent to proceed. monitor h/h , transfuse as needed Patient seen in collaboration with Dr. Coker CC: LULU COKER MD ; Consultation Date/Type/Reason Admit Date/Time Date of Consultation: August 30, 2018 Type of Consult GI Reason for Consultation Abdominal pain Anemia Nausea/vomiting Date/Time of Note DATE: 08/30/18 TIME: 12:35 Hx of Present Illness This is a 52 year old female with PMH of Hepatis C, DM poorly controlled, who presented to the ED with complaints of lower extremity swelling cough, shortness of breath generalized aches patient admitted to the hospital with pneumonia and UTI during hospitalization patient developed abdominal pain with persistent nausea and vomiting and noted to have acute on chronic anemia. During hospitalization hemoglobin has remained low yet stable with normocytic MCV. Patient states she has been having epigastric pain on and off for the past 3 months she has also noted black stool off and on for the past 3 months. Patient states she uses nonsteroidal anti-inflammatory drugs up to 3 times a week. During hospital stay patient states she felt increased nausea and vomiting with x2 episodes of emesis yesterday no coffee-ground emesis or hematemesis was noted. Discussed plan to continue PPI twice daily we will move forward with the EGD scheduled for tomorrow as patient had solid food today. Review of Systems: A 12 system, review was conducted and is negative except as noted in the HPI or here. Past Medical History Medical History: other (See HPI) Home Meds Active Scripts Sennosides* (Senna Lax*) 8.6 Mg Tablet, 1 TAB PO DAILY, #30 TAB Prov:SHAVON QUEEN MD 01/31/17 Docusate Sodium* (Colace*) 100 Mg Capsule, 100 MG PO TID, #30 CAP Prov:SHAVON QUEEN MD 01/31/17 Ondansetron (Ondansetron Odt) 4 Mg Tab.rapdis, 4 MG PO Q6H PRN for NAUSEA AND/OR VOMITING, #10 TAB Prov:SHAVON QUEEN MD 01/31/17 Hydrocodone/Acetaminophen (Comfort 10-325 Tablet) 1 Each Tablet, 1 TAB PO Q6H PRN for PAIN, #7 TAB Prov:SHAVON QUEEN MD 01/31/17 Reported Medications Insulin Glargine,Hum.rec.anlog (Basaglar Kwikpen U-100) 100 Unit/1 Ml Insuln.pen, 20 UNIT SC QHS 01/31/17 Metformin Hcl* (Metformin Hcl*) 1,000 Mg Tablet, 1000 MG PO WITH BREAKFAST DINNE, #60 TAB 01/31/17 Atorvastatin Calcium* (Atorvastatin Calcium*) 20 Mg Tablet, 20 MG PO QHS, #30 TAB 01/31/17 Losartan Potassium* (Losartan Potassium*) 50 Mg Tablet, 50 MG PO DAILY, TAB 01/31/17 Gabapentin* (Gabapentin*) 300 Mg Capsule, 300 MG PO QHS, #60 CAP 01/31/17 Medications Current Medications IV Flush (NS 3 ml) 3 ml PER PROTOCOL IV ; Start 08/28/18 at 22:00 Ondansetron HCl (Zofran Inj) 4 mg Q6H PRN IV NAUSEA/VOMITING Last administered on 08/29/18at 12:49; Admin Dose 4 MG; Start 08/28/18 at 22:00 Acetaminophen (Tylenol Tab) 650 mg Q6H PRN PO .PAIN 1-3 OR TEMP Last administered on 08/29/18at 16:31; Admin Dose 650 MG; Start 08/28/18 at 22:00 Albuterol/ Ipratropium (Duoneb) 3 ml Q2H RESP THERAPY PRN HHN SHORTNESS OF BREATH; Start 08/28/18 at 22:00 Atorvastatin Calcium (Lipitor) 20 mg QHS PO Last administered on 08/29/18at 20:51; Admin Dose 20 MG; Start 08/28/18 at 22:00 Acetaminophen/ Hydrocodone Bitart ([place] (10/325)) 1 tab Q6H PRN PO PAIN Last administered on 08/29/18 10:00; Admin Dose 1 TAB; Start 08/28/18 at 22:00 Senna (Senokot) 1 tab DAILY PO Last administered on 08/30/18 08:20; Admin Dose 1 TAB; Start 08/29/18 at 09:00 Ceftriaxone Sodium 50 ml @ 100 mls/hr Q24H IVPB Last administered on 08/29/18 22:46; Admin Dose 100 MLS/HR; Start 08/29/18 at 21:30 Diagnostic Test (Pha) (Accu-Chek) 1 ea 02 XX Last administered on 08/30/18at 02:00; Admin Dose 1 EA; Start 08/29/18 at 02:00 Insulin Aspart (Novolog Insulin Pen) NOVOLOG *MILD* ALGORITHM WITH MEALS BEDTIME SC Last administered on 08/30/18 12:33; Admin Dose 3 UNIT; Start 08/29/18 at 07:55 Miscellaneous Information 1 ea NOTE XX ; Start 08/28/18 at 23:45 Glucose (Glutose) 15 gm Q15M PRN PO DECREASED GLUCOSE; Start 08/28/18 at 23:45 Glucose (Glutose) 22.5 gm Q15M PRN PO DECREASED GLUCOSE; Start 08/28/18 at 23:45 Dextrose (D50w Syringe) 25 ml Q15M PRN IV DECREASED GLUCOSE; Start 08/28/18 at 23:45 Dextrose (D50w Syringe) 50 ml Q15M PRN IV DECREASED GLUCOSE; Start 08/28/18 at 23:45 Glucagon (Glucagen) 1 mg Q15M PRN IM DECREASED GLUCOSE; Start 08/28/18 at 23:45 Glucose (Glutose) 15 gm Q15M PRN BUCCAL DECREASED GLUCOSE; Start 08/28/18 at 23:45 Insulin Aspart (Novolog Insulin Pen) 4 unit WITH MEALS SC Last administered on 08/30/18 12:33; Admin Dose 4 UNIT; Start 08/29/18 at 17:55 Ferrous Sulfate (Ferrous Sulfate (Ec)) 325 mg BID PO Last administered on 08/30/18 08:20; Admin Dose 325 MG; Start 08/29/18 at 21:00 Pantoprazole (Protonix Iv) 40 mg BID@06,18 IV Last administered on 08/30/18 05:53; Admin Dose 40 MG; Start 08/29/18 at 18:00 Gabapentin (Neurontin) 100 mg TID PO Last administered on 08/30/18 08:20; Admin Dose 100 MG; Start 08/29/18 at 21:00 Erythromycin (Erythromycin) 250 mg Q8 PO Last administered on 08/30/18 05:53; Admin Dose 250 MG; Start 08/29/18 at 22:00 Metoclopramide HCl (Reglan) 5 mg Q6 IV Last administered on 08/30/18 12:26; Admin Dose 5 MG; Start 08/29/18 at 18:00; Stop 08/30/18 at 17:59 Azithromycin 250 mg/Sodium Chloride 250 ml @ 250 mls/hr Q24H IVPB Last adminis tered on 08/29/18 16:31; Admin Dose 250 MLS/HR; Start 08/29/18 at 17:00 Metoprolol Tartrate (Lopressor) 25 mg DAILY PO Last administered on 08/30/18 08:20; Admin Dose 25 MG; Start 08/29/18 at 16:00 Hydralazine HCl (Apresoline) 10 mg Q6H PRN IV ELEVATED BLOOD PRESSURE; Start 08/29/18 at 19:00 Docusate Sodium (Colace) 100 mg BID PO Last administered on 08/30/18 08:20; Admin Dose 100 MG; Start 08/29/18 at 21:30 Polyethylene Glycol (Miralax) 17 gm DAILY PO Last administered on 08/30/18 08:20; Admin Dose 17 GM; Start 08/29/18 at 21:30 Insulin Glargine (Lantus) 20 units HS SC ; Start 08/30/18 at 21:00 Allergies: Coded Allergies: Penicillins (Verified Allergy, Unknown, rash, 01/31/17) Past Surgical History Past Surgical Hx: other (See HPI) Social History Alcohol Use: none Smoking Status: Never smoker Drug Use: none Exam/Review of Systems Exam Vitals Vital Signs Date Temp Pulse Resp B/P (MAP) Pulse Ox O2 O2 Flow FiO2 Time Delivery Rate 08/30/18 98.0 72 18 137/64 95 Room Air 11:22 (88) 08/30/18 2.0 08:00 Intake and Output 08/29/18 08/29/18 08/30/18 1515:00 23:00 07:00 IntakeIntake Total 1350 ml 50 ml BalanceBalance 1350 ml 50 ml Exam PHYSICAL EXAMINATION: GENERAL: Well developed, well nourished, alert & oriented x 3, in no acute distress SKIN: No lesions HEAD: Normocephalic, atraumatic, no tenderness. EYES: Pupils equal reactive to light and accommodation, no discharge. EARS/NOSE AND THROAT: Ears normal, nose normal, oropharynx normal. NECK: Supple, no masses. CHEST: Inspection within normal limits. CARDIOVASCULAR: Heart: Regular rate and rhythm RESPIRATORY: Lungs clear to auscultation GASTROINTESTINAL AND LIVER: Abdomen: Soft, non tenderness, non-distended, no hernias, no masses, no organomegaly, no ascites, no guarding, no rebound tenderness, normoactive bowel sounds. Rectal: Deferred. EXTREMITIES: No cyanosis, clubbing or edema. Results Result Diagram: 08/30/18 0555 08/30/18 0555 Results 24hrs Laboratory Tests Test 08/29/18 13:16 08/29/18 13:53 08/29/18 16:30 08/29/18 17:06 Bedside Glucose 173 132 Hemoglobin 7.6 L Hematocrit 23.6 L Urine Color YELLOW Urine Clarity SLIGHTLY CLOUDY A Urine pH 7.0 Urine Specific 1.009 [place] Urine Ketones NEGATIVE Urine Nitrite NEGATIVE Urine Bilirubin NEGATIVE Urine NEGATIVE Urobilinogen Urine Leukocyte 3+ H Esterase Urine Microscopic 1 RBC Urine Microscopic 41 H WBC Urine Squamous MANY A Epithelial Cells Urine Bacteria FEW A Urine Hemoglobin NEGATIVE Urine Random 48.68 Creatinine Urine Random 21 L Sodium Urine Random 17.4 L Potassium Urine Glucose 1+ H Urine Total 429.0 H Protein Test 08/29/18 20:57 08/30/18 03:01 08/30/18 05:55 08/30/18 07:43 Bedside Glucose 224 H 224 H 194 White Blood Count 7.2 Red Blood Count 2.64 L Hemoglobin 7.3 L Hematocrit 22.9 L Mean Corpuscular 86.7 Volume Mean Corpuscular 27.7 L Hemoglobin Mean Corpuscular 31.9 L Hemoglobin Concen t Red Cell 13.0 Distribution Width Platelet Count 220 Mean Platelet 10.6 H Volume Immature 0.300 Granulocytes % Neutrophils % 63.7 Lymphocytes % 24.1 Monocytes % 9.8 Eosinophils % 1.8 Basophils % 0.3 Nucleated Red 0.0 Blood Cells % Immature 0.020 Granulocytes # Neutrophils # 4.6 Lymphocytes # 1.7 Monocytes # 0.7 Eosinophils # 0.1 Basophils # 0.0 Nucleated Red 0.0 Blood Cells # Sodium Level 135 Potassium Level 4.3 Chloride Level 109 Carbon Dioxide 22 Level Anion Gap 4 L Blood Urea 33 H Nitrogen Creatinine 2.56 H Est Glomerular 20 L Filtrat Rate mL/min Glucose Level 188 Calcium Level 7.8 L Phosphorus Level 4.7 Magnesium Level 2.2 Test 08/30/18 12:14 Bedside Glucose 236 H Medications Medication Current Medications IV Flush (NS 3 ml) 3 ml PER PROTOCOL IV ; Start 08/28/18 at 22:00 Ondansetron HCl (Zofran Inj) 4 mg Q6H PRN IV NAUSEA/VOMITING Last administered on 08/29/18 12:49; Admin Dose 4 MG; Start 08/28/18 at 22:00 Acetaminophen (Tylenol Tab) 650 mg Q6H PRN PO .PAIN 1-3 OR TEMP Last administered on 08/29/18 16:31; Admin Dose 650 MG; Start 08/28/18 at 22:00 Albuterol/ Ipratropium (Duoneb) 3 ml Q2H RESP THERAPY PRN HHN SHORTNESS OF BREATH; Start 08/28/18 at 22:00 Atorvastatin Calcium (Lipitor) 20 mg QHS PO Last administered on 08/29/18at 20:51; Admin Dose 20 MG; Start 08/28/18 at 22:00 Acetaminophen/ Hydrocodone Bitart ([place] (10/325)) 1 tab Q6H PRN PO PAIN Last administered on 08/29/18at 10:00; Admin Dose 1 TAB; Start 08/28/18 at 22:00 Senna (Senokot) 1 tab DAILY PO Last administered on 08/30/18at 08:20; Admin Dose 1 TAB; Start 08/29/18 at 09:00 Ceftriaxone Sodium 50 ml @ 100 mls/hr Q24H IVPB Last administered on 08/29/18at 22:46; Admin Dose 100 MLS/HR; Start 08/29/18 at 21:30 Diagnostic Test (Pha) (Accu-Chek) 1 ea 02 XX Last administered on 08/30/18at 02:00; Admin Dose 1 EA; Start 08/29/18 at 02:00 Insulin Aspart (Novolog Insulin Pen) NOVOLOG *MILD* ALGORITHM WITH MEALS BEDTIME SC Last administered on 08/30/18at 12:33; Admin Dose 3 UNIT; Start 08/29/18 at 07:55 Miscellaneous Information 1 ea NOTE XX ; Start 08/28/18 at 23:45 Glucose (Glutose) 15 gm Q15M PRN PO DECREASED GLUCOSE; Start 08/28/18 at 23:45 Glucose (Glutose) 22.5 gm Q15M PRN PO DECREASED GLUCOSE; Start 08/28/18 at 23:45 Dextrose (D50w Syringe) 25 ml Q15M PRN IV DECREASED GLUCOSE; Start 08/28/18 at 23:45 Dextrose (D50w Syringe) 50 ml Q15M PRN IV DECREASED GLUCOSE; Start 08/28/18 at 23:45 Glucagon (Glucagen) 1 mg Q15M PRN IM DECREASED GLUCOSE; Start 08/28/18 at 23:45 Glucose (Glutose) 15 gm Q15M PRN BUCCAL DECREASED GLUCOSE; Start 08/28/18 at 23:45 Insulin Aspart (Novolog Insulin Pen) 4 unit WITH MEALS SC Last administered on 08/30/18at 12:33; Admin Dose 4 UNIT; Start 08/29/18 at 17:55 Ferrous Sulfate (Ferrous Sulfate (Ec)) 325 mg BID PO Last administered on 08/30/18 08:20; Admin Dose 325 MG; Start 08/29/18 at 21:00 Pantoprazole (Protonix Iv) 40 mg BID@06,18 IV Last administered on 08/30/18at 05:53; Admin Dose 40 MG; Start 08/29/18 at 18:00 Gabapentin (Neurontin) 100 mg TID PO Last administered on 08/30/18at 08:20; A dmin Dose 100 MG; Start 08/29/18 at 21:00 Erythromycin (Erythromycin) 250 mg Q8 PO Last administered on 08/30/18 05:53; Admin Dose 250 MG; Start 08/29/18 at 22:00 Metoclopramide HCl (Reglan) 5 mg Q6 IV Last administered on 08/30/18 12:26; Admin Dose 5 MG; Start 08/29/18 at 18:00; Stop 08/30/18 at 17:59 Azithromycin 250 mg/Sodium Chloride 250 ml @ 250 mls/hr Q24H IVPB Last administered on 08/29/18at 16:31; Admin Dose 250 MLS/HR; Start 08/29/18 at 17:00 Metoprolol Tartrate (Lopressor) 25 mg DAILY PO Last administered on 08/30/18 08:20; Admin Dose 25 MG; Start 08/29/18 at 16:00 Hydralazine HCl (Apresoline) 10 mg Q6H PRN IV ELEVATED BLOOD PRESSURE; Start 08/29/18 at 19:00 Docusate Sodium (Colace) 100 mg BID PO Last administered on 08/30/18 08:20; Admin Dose 100 MG; Start 08/29/18 at 21:30 Polyethylene Glycol (Miralax) 17 gm DAILY PO Last administered on 08/30/18 08:20; Admin Dose 17 GM; Start 08/29/18 at 21:30 Insulin Glargine (Lantus) 20 units HS SC ; Start 08/30/18 at 21:00 ERICK MENDES August 30, 2018 12:45
--- NOTE | 2018-08-30 14:41 | RADRPT ---
Echocardiogram Report Patient Name: CARO MELLOPatient ID: [id number] : 1965 (52y 10m)Study Date: 08/30/2018 8:19:57 AM Gender: FAccession #: [id number] Tech: Bird López [facility] Location: [address] Ref.Physician: FRANCE BUCKLEY Height(Cm): BSA: Weight(Kg): Quality: LimitedOrder Physician: FRANCE BUCKLEY Account #: Procedures: Echocardiographic Report: Transthoracic echocardiogram with complete 2D, M-Mode, and doppler examination. Indications: Evaluate Left Ventricular function. Measurements: 2D/M Mode Doppler Measurement Value Normal Range Measurement Value Normal Range LVIDd 2D 4.6 [ 3.8 - 5.2 ] cm AV Peak Ramin 1.5 [ 100.0 - 170.0 ] cm/sec LVIDs 2D 2.9 [ 2.2 - 3.5 ] cm AV Peak PG 9.0 [ 2.0 - 9.0 ] mmHg LVPWd 2D 1.1 [ 0.6 - 0.9 ] cm LVOT Peak Ramin 1.0 [ 70.0 - 110.0 ] cm/sec IVSd 2D 1.5 [ 0.6 - 0.9 ] cm LVOT Peak PG 4.0 [ 2.0 - 6.0 ] mmHg IVS/LVPW 2D 1.3 ratio MV E Peak Ramin 1.1 [ 60.0 - 130.0 ] cm/sec AoR Diam 2D 2.6 [ 2.3 - 3.1 ] cm MV A Peak Ramin 0.8 [ 100.0 - 120.0 ] cm/sec LA/Ao 2D 2 ratio MV E/A 1.3 [ 0.8 - 1.5 ] ratio LA Dimen 2D 4.3 [ 2.7 - 3.8 ] cm MV Decel Time 215 [ 104 - 258 ] msec Lat E` Ramin 0.1 [ 10.0 - 15.0 ] cm/sec MV E/A 1.3 [ 0.8 - 1.5 ] ratio TR Peak Ramin 3.5 [ 100.0 - 280.0 ] cm/sec TR Peak PG 50.0 mmHg RVSP 53.0 [ 10.0 - 36.0 ] mmHg Findings: Left Ventricle: Normal left ventricular systolic function. Normal left ventricular cavity size. Sigmoid septum. Ejection fraction is visually estimated at 55 %. Tissue Doppler/Mitral Doppler indices are consistent with impaired relaxation (Stage I diastolic dysfunction). Right Ventricle: Normal right ventricular size. Normal right ventricular systolic function. Left Atrium: There is mild enlargement of left atrium. Right Atrium: The right atrium is normal in size. Mitral Valve: Mild mitral leaflet calcification. Mild mitral annular calcification. Mild mitral valve regurgitation. Aortic Valve: Normal trileaflet aortic valve structure. No hemodynamically significant aortic stenosis by doppler. Tricuspid Valve: Normal appearance of the tricuspid valve. The estimated Peak RVSP is 53 mmHg. There is mild tricuspid regurgitation. Pulmonic Valve: Pulmonic valve not well visualized. Pericardium: Normal pericardium with no significant pericardial effusion. Aorta: Normal aortic root. IVC: Normal size and normal respiratory collapse consistent with normal right atrial pressure. Conclusions: Technically difficult study. Septal hypertrophy with normal systolic function. Mild left atrial enlargement. Mild mitral regurgitation. Mild tricuspid regurgitation and moderate pulmonary hypertension. Electronically Signed By: Gracia Mcnally 2018-08-30 14:41:09 PDT
[2018-08-30] MEDS: HYDROCODONE/APAP (10/325) TAB PO PRN (15:48)
[2018-08-30] MEDS: AZITHROMYCIN 250 MG in SOD CHLORIDE 0.9% 250 ML IVPB SCH (17:36)
--- NOTE | 2018-08-30 17:57 | PREAC ---
Date/Time of Note Date/Time of Note DATE: 08/30/18 TIME: 17:56 Anesthesia Eval and Record Evaluation Time Pre-Procedure Interview DATE: 08/30/18 TIME: 17:56 Age 52 Sex female NPO: 8 hrs Preoperative diagnosis GI bleed Planned procedure EGD Past Medical History Past Medical History: Includes Cardio: HTN, Dyslipidemia Endo: Diabetes Renal: CLAUDINE Heme: Anemia Surgery & Anesthesia Issues No known issue Meds Anticoagulation: No Beta Yuliana within 24 hr: No Reason Beta Yuliana not given: Pt. not on B-Yuliana Active Scripts Sennosides* (Senna Lax*) 8.6 Mg Tablet, 1 TAB PO DAILY, #30 TAB Prov:SHAVON QUEEN MD 01/31/17 Docusate Sodium* (Colace*) 100 Mg Capsule, 100 MG PO TID, #30 CAP Prov:SHAVON QUEEN MD 01/31/17 Ondansetron (Ondansetron Odt) 4 Mg Tab.rapdis, 4 MG PO Q6H PRN for NAUSEA AND/OR VOMITING, #10 TAB Prov:SHAVON QUEEN MD 01/31/17 Hydrocodone/Acetaminophen (Jolley 10-325 Tablet) 1 Each Tablet, 1 TAB PO Q6H PRN for PAIN, #7 TAB Prov:SHAVON QUEEN MD 01/31/17 Reported Medications Insulin Glargine,Hum.rec.anlog (Basaglar Kwikpen U-100) 100 Unit/1 Ml Insuln.pen, 20 UNIT SC QHS 01/31/17 Metformin Hcl* (Metformin Hcl*) 1,000 Mg Tablet, 1000 MG PO WITH BREAKFAST DINNE, #60 TAB 01/31/17 Atorvastatin Calcium* (Atorvastatin Calcium*) 20 Mg Tablet, 20 MG PO QHS, #30 TAB 01/31/17 Losartan Potassium* (Losartan Potassium*) 50 Mg Tablet, 50 MG PO DAILY, TAB 01/31/17 Gabapentin* (Gabapentin*) 300 Mg Capsule, 300 MG PO QHS, #60 CAP 01/31/17 Current Medications IV Flush (NS 3 ml) 3 ml PER PROTOCOL IV ; Start 08/28/18 at 22:00 Ondansetron HCl (Zofran Inj) 4 mg Q6H PRN IV NAUSEA/VOMITING Last administered on 08/29/18at 12:49; Admin Dose 4 MG; Start 08/28/18 at 22:00 Acetaminophen (Tylenol Tab) 650 mg Q6H PRN PO .PAIN 1-3 OR TEMP Last administered on 08/29/18 16:31; Admin Dose 650 MG; Start 08/28/18 at 22:00 Albuterol/ Ipratropium (Duoneb) 3 ml Q2H RESP THERAPY PRN HHN SHORTNESS OF BREATH; Start 08/28/18 at 22:00 Atorvastatin Calcium (Lipitor) 20 mg QHS PO Last administered on 08/29/18at 20:51; Admin Dose 20 MG; Start 08/28/18 at 22:00 Acetaminophen/ Hydrocodone Bitart (Jolley ()) 1 tab Q6H PRN PO PAIN Last administered on 08/30/18 15:48; Admin Dose 1 TAB; Start 08/28/18 at 22:00 Senna (Senokot) 1 tab DAILY PO Last administered on 08/30/18 08:20; Admin Dose 1 TAB; Start 08/29/18 at 09:00 Ceftriaxone Sodium 50 ml @ 100 mls/hr Q24H IVPB Last administered on 08/29/18 22:46; Admin Dose 100 MLS/HR; Start 08/29/18 at 21:30 Diagnostic Test (Pha) (Accu-Chek) 1 ea 02 XX Last administered on 08/30/18at 02:00; Admin Dose 1 EA; Start 08/29/18 at 02:00 Insulin Aspart (Novolog Insulin Pen) NOVOLOG *MILD* ALGORITHM WITH MEALS BEDTIME SC Last administered on 08/30/18 17:49; Admin Dose 1 UNIT; Start 08/29/18 at 07:55 Miscellaneous Information 1 ea NOTE XX ; Start 08/28/18 at 23:45 Glucose (Glutose) 15 gm Q15M PRN PO DECREASED GLUCOSE; Start 08/28/18 at 23:45 Glucose (Glutose) 22.5 gm Q15M PRN PO DECREASED GLUCOSE; Start 08/28/18 at 23:45 Dextrose (D50w Syringe) 25 ml Q15M PRN IV DECREASED GLUCOSE; Start 08/28/18 at 23:45 Dextrose (D50w Syringe) 50 ml Q15M PRN IV DECREASED GLUCOSE; Start 08/28/18 at 23:45 Glucagon (Glucagen) 1 mg Q15M PRN IM DECREASED GLUCOSE; Start 08/28/18 at 23:45 Glucose (Glutose) 15 gm Q15M PRN BUCCAL DECREASED GLUCOSE; Start 08/28/18 at 23:45 Insulin Aspart (Novolog Insulin Pen) 4 unit WITH MEALS SC Last administered on 08/30/18at 17:49; Admin Dose 4 UNIT; Start 08/29/18 at 17:55 Ferrous Sulfate (Ferrous Sulfate (Ec)) 325 mg BID PO Last administered on 08/30/18 08:20; Admin Dose 325 MG; Start 08/29/18 at 21:00 Pantoprazole (Protonix Iv) 40 mg BID@06,18 IV Last administered on 08/30/18 1 7:36; Admin Dose 40 MG; Start 08/29/18 at 18:00 Gabapentin (Neurontin) 100 mg TID PO Last administered on 08/30/18 13:30; Admin Dose 100 MG; Start 08/29/18 at 21:00 Erythromycin (Erythromycin) 250 mg Q8 PO Last administered on 08/30/18 13:30; Admin Dose 250 MG; Start 08/29/18 at 22:00 Metoclopramide HCl (Reglan) 5 mg Q6 IV Last administered on 08/30/18 12:26; Admin Dose 5 MG; Start 08/29/18 at 18:00; Stop 08/30/18 at 17:59 Azithromycin 250 mg/Sodium Chloride 250 ml @ 250 mls/hr Q24H IVPB Last administered on 08/30/18 17:36; Admin Dose 250 MLS/HR; Start 08/29/18 at 17:00 Metoprolol Tartrate (Lopressor) 25 mg DAILY PO Last administered on 08/30/18 08:20; Admin Dose 25 MG; Start 08/29/18 at 16:00 Hydralazine HCl (Apresoline) 10 mg Q6H PRN IV ELEVATED BLOOD PRESSURE; Start 08/29/18 at 19:00 Docusate Sodium (Colace) 100 mg BID PO Last administered on 08/30/18 08:20; Admin Dose 100 MG; Start 08/29/18 at 21:30 Polyethylene Glycol (Miralax) 17 gm DAILY PO Last administered on 08/30/18 08:20; Admin Dose 17 GM; Start 08/29/18 at 21:30 Insulin Glargine (Lantus) 20 units HS SC ; Start 08/30/18 at 21:00 Meds reviewed: Yes Allergies Coded Allergies: Penicillins (Verified Allergy, Unknown, rash, 01/31/17) Allergies Reviewed: Yes Labs/Studies Labs Reviewed: Reviewed by anesthesiologist Result Diagram: 08/30/18 0555 08/30/18 0555 Laboratory Tests 08/30/18 05:55 test: N/A Studies: CXR (Right lower lobe infiltrate.), 2D Echo (EF 55%) Pre-procedure Exam Last vitals Vital Signs Date Temp Pulse Resp B/P (MAP) Pulse Ox O2 O2 Flow FiO2 Time Delivery Rate 08/30/18 70 16:01 08/30/18 98.0 19 144/69 99 Room Air 15:10 (94) 08/30/18 2.0 08:00 Airway: Adequate mouth opening Mallampati: Mallampati II Teeth: Normal Lung: Normal Heart: Normal ASA Physical Status ASA physical status: 3 Emergency: None Planned Anesthetic General/MAC: MAC Pre-operative Attestations Prior to commencing anesthesia and surgery, the patient was re-evaluated, there was verification of: *The patient's identity *The results of appropriate recent lab work and preoperative vital signs *The above evaluation not changing prior to induction *Anesthetic plan, risk benefits, alternative and complications discussed with patient/family; questions answered; patient/family understands, accepts and wishes to proceed. ELIZABETH MADRIGAL August 30, 2018 17:57
[2018-08-30] MEDS: ONDANSETRON 4 MG INJ IV PRN (18:50)
[2018-08-30] MEDS: ATORVASTATIN 20 MG TAB PO SCH (20:50)
[2018-08-30] MEDS: CEFTRIAXONE 1 GM/50 ML (PMX) 50 ML IVPB SCH (20:51)
[2018-08-30] MEDS: INSULIN GLARGINE [LANTus] (100 UNITS/ML) SYG SC SCH (20:54)
[2018-08-31] VITALS (12 sets, daily range): BP systolic 137–177; BP diastolic 63–94; PULSE 66–85; RESP 18–22
[2018-08-31] MEDS: ACCU-CHEK XX SCH (02:00)
[2018-08-31] MEDS: PANTOPRAZOLE 40 MG INJ IV SCH ×2 (05:58→17:36)
[2018-08-31] MEDS: ERYTHROMYCIN BASE (DR) 250 MG CAP PO SCH ×2 (05:58→13:22)
[2018-08-31] MEDS: INSULIN ASPART [NOVOLOG] 3 ML PEN SC SCH ×7 (07:55→20:57)
[2018-08-31] MEDS: GABAPENTIN 100 MG CAP PO SCH ×3 (08:15→20:54)
[2018-08-31] MEDS: FERROUS SULFATE (EC) 325 MG TAB PO SCH ×2 (08:15→20:54)
[2018-08-31] MEDS: METOPROLOL 25 MG TAB PO SCH (08:15)
[2018-08-31] MEDS: DOCUSATE SODIUM 100 MG CAP PO SCH ×2 (08:16→20:54)
[2018-08-31] MEDS: SENNA TAB PO SCH (08:16)
[2018-08-31] MEDS: POLYETHYLENE GLYCOL 17 GM PACKET PO SCH (08:16)
--- NOTE | 2018-08-31 10:42 | PN ---
DATE: 08/31/2018 SUBJECTIVE: The patient is complaining of nausea, pending EGD this morning. No other events noted. OBJECTIVE: VITAL SIGNS: Blood pressure is 172/83, pulse 68, respirations 22, temperature 98.7. HEENT: Head is normocephalic. NECK: Supple. HEART: Regular rate. LUNGS: Show diminished breath sounds at the base. ABDOMEN: Soft, nontender to palpation without rebound or guarding. EXTREMITIES: Negative for clubbing, cyanosis, no edema. DERMATOLOGIC: No rashes. MUSCULOSKELETAL: No joint effusion. NEUROLOGIC: No change. MEDICATIONS: Reviewed. LABORATORY DATA: Reviewed. ASSESSMENT AND PLAN: 1. Nonoliguric acute kidney injury on top of chronic kidney disease with unknown baseline creatinine . Etiology of acute kidney injury is secondary to hemodynamics. The patient's renal function has sl owly been improving with current supportive care. We would therefore continue current treatment plan , renally dose all medications and avoid nephrotoxins. 2. 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 Possibility of a primary glomerulopathy is less likely but a consideration. We will check serological data. Continue to monitor. 3. Anemia. Continue to monitor hemoglobin and hematocrit levels. Continue IV Ferrlecit. 4. Mineral bone disorder. Monitor calcium and phosphorus levels. 5. Sepsis secondary to urinary tract infection. Continue current antibiotic regimen. 6. Abdominal pain, possible gastroenteritis. Continue to monitor. The patient is pending EGD. 7. History of hepatitis C. 8. Diabetes. Continue current insulin regimen. 9. Dyslipidemia. Continue statin therapy. 10. Hypertension. Continue current blood pressure regimen, defer JUMANA inhibitor or ARB at this time. Dictated By: NICOLAS HALL DO NR/NTS Conf#: [id number] DID#: [id number] CC: JOSEPHINE COVARRUBIAS MD; SHIMON CRUZ MD;*EndCC*
--- NOTE | 2018-08-31 11:29 | PN ---
Date/Time of Note Date/Time of Note DATE: 08/31/18 TIME: 11:23 Assessment/Plan VTE Prophylaxis Risk score (from Ns)>0 risk: 2 SCD applied (from Ns): No SCD contraindicated: other Pharmacological prophylaxis: NA/contraindicated Pharm contraindication: low risk/ambulating Lines/Catheters IV [facility]from [facility] Peripheral IV Assessment/Plan Hospital Course SUBJECTIVE:no Further abdominal pain, nausea or vomiting. OBJECTIVE: Vital signs-see below PHYSICAL EXAM: Constitutional: Adequately built,not in acute distress. HEENT: Head atraumatic and normocephalic. Eyes: Extraocular muscles intact. Anicteric sclerae. Pupils equal bilaterally, reactive to light. NECK: Supple without lymph node. CHEST: Clear and good breath sounds equally. No wheezing. No rhonchi. HEART: S1, S2. Regular rate and rhythm. ABDOMEN: Soft/non tender with no rebound tenderness. Bowel sounds were present. EXTREMITIES: No cyanosis, clubbing or edema. NEUROLOGIC: Alert and oriented x3. No focal deficit. No sensory deficit. PSYCHOSOCIAL: No signs of depression. INTEGUMENTARY: No open wounds. ASSESSMENT AND PLAN:52 yo F w/DM2,htn,dlp,hep C here multiple complaints includ ing w/abd pain/n/v,generalized body ache,cough/sob/fevers... Pneumonia, community-acquired -Clinically improved -On ceftriaxone/azithromycin Urinary tract infection -CT also showed air in bladder, questionable emphysematous cystitis? -Continue antimicrobials and follow-up urology recommendations. Abdominal pain/N/V -Resolved. Please note that patient also had a UTI which is also likely contri buting to her symptoms. 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 Anemia -Likely chronic. -Follow-up EGD findings DMII, poorly controlled -Stable. Continue basal/bolus insulin Dyslipidemia -On statin Diastolic dysfunction -Clinically stable Pulmonary hypertension -Stable. Monitor Essential hypertension -Continue holding losartan in light of acute kidney injury. -Continue metoprolol DVT prophylaxis: SCDs PUD prophylaxis: PPI Disposition: Continue current management. Follow-up GI/nephrology/urology recommendations. PT eval. Downgrade to medical surgical floor Patient was seen in collaboration with Dr. Arroyo. Result Diagram: 08/31/18 0559 08/31/18 0559 Results 24hrs Laboratory Tests Test 08/30/18 12:14 08/30/18 14:00 08/30/18 17:13 08/30/18 20:37 Bedside Glucose 236 H 151 131 Stool Occult Blood NEGATIVE Test 08/31/18 04:00 08/31/18 05:59 08/31/18 07:55 08/31/18 09:35 Bedside Glucose 145 128 White Blood Count 7.2 Red Blood Count 2.64 L Hemoglobin 7.4 L Hematocrit 23.0 L Mean Corpuscular 87.1 Volume Mean Corpuscular 28.0 L Hemoglobin Mean Corpuscular 32.2 Hemoglobin Concent Red Cell 13.0 Distribution Width Platelet Count 241 Mean Platelet Volume 11.0 H Immature 0.300 Granulocytes % Neutrophils % 61.1 Lymphocytes % 28.0 Monocytes % 7.8 Eosinophils % 2.5 Basophils % 0.3 Nucleated Red Blood 0.0 Cells % Immature 0.020 Granulocytes # Neutrophils # 4.4 Lymphocytes # 2.0 Monocytes # 0.6 Eosinophils # 0.2 Basophils # 0.0 Nucleated Red Blood 0.0 Cells # Sodium Level 137 Potassium Level 4.3 Chloride Level 112 H Carbon Dioxide Level 21 Anion Gap 4 L Blood Urea Nitrogen 33 H Creatinine 2.38 H Est Glomerular 21 L Filtrat Rate mL/min Glucose Level 131 # Calcium Level 8.1 L Complement C3 Pending Complement C4 Pending Hepatitis B Surface Pending Antigen Hepatitis B Core Pending Total Antibody Hepatitis C Antibody Pending Exam/Review of Systems Exam Vitals Vital Signs Date Temp Pulse Resp B/P (MAP) Pulse Ox O2 O2 Flow FiO2 Time Delivery Rate 08/31/18 Nasal 2.0 08:11 Cannula 08/31/18 75 08:00 08/31/18 98.7 22 172/83 96 07:34 (112) Intake and Output 08/30/18 08/30/18 08/31/18 1515:00 23:00 07:00 IntakeIntake Total 1450 ml 1000 ml BalanceBalance 1450 ml 1000 ml Results Results 24hrs Laboratory Tests Test 08/30/18 12:14 08/30/18 14:00 08/30/18 17:13 08/30/18 20:37 Bedside Glucose 236 H 151 131 Stool Occult Blood NEGATIVE Test 08/31/18 04:00 08/31/18 05:59 08/31/18 07:55 08/31/18 09:35 Bedside Glucose 145 128 White Blood Count 7.2 Red Blood Count 2.64 L Hemoglobin 7.4 L Hematocrit 23.0 L Mean Corpuscular 87.1 Volume Mean Corpuscular 28.0 L Hemoglobin Mean Corpuscular 32.2 Hemoglobin Concent Red Cell 13.0 Distribution Width Platelet Count 241 Mean Platelet Volume 11.0 H Immature 0.300 Granulocytes % Neutrophils % 61.1 Lymphocytes % 28.0 Monocytes % 7.8 Eosinophils % 2.5 Basophils % 0.3 Nucleated Red Blood 0.0 Cells % Immature 0.020 Granulocytes # Neutrophils # 4.4 Lymphocytes # 2.0 Monocytes # 0.6 Eosinophils # 0.2 Basophils # 0.0 Nucleated Red Blood 0.0 Cells # Sodium Level 137 Potassium Level 4.3 Chloride Level 112 H Carbon Dioxide Level 21 Anion Gap 4 L Blood Urea Nitrogen 33 H Creatinine 2.38 H Est Glomerular 21 L Filtrat Rate mL/min Glucose Level 131 # Calcium Level 8.1 L Complement C3 Pending Complement C4 Pending Hepatitis B Surface Pending Antigen Hepatitis B Core Pending Total Antibody Hepatitis C Antibody Pending Medications Medication Current Medications IV Flush (NS 3 ml) 3 ml PER PROTOCOL IV ; Start 08/28/18 at 22:00 Ondansetron HCl (Zofran Inj) 4 mg Q6H PRN IV NAUSEA/VOMITING Last administered on 08/30/18at 18:50; Admin Dose 4 MG; Start 08/28/18 at 22:00 Acetaminophen (Tylenol Tab) 650 mg Q6H PRN PO .PAIN 1-3 OR TEMP Last administered on 08/29/18at 16:31; Admin Dose 650 MG; Start 08/28/18 at 22:00 Albuterol/ Ipratropium (Duoneb) 3 ml Q2H RESP THERAPY PRN HHN SHORTNESS OF BREATH; Start 08/28/18 at 22:00 Atorvastatin Calcium (Lipitor) 20 mg QHS PO Last administered on 08/30/18at 20:50; Admin Dose 20 MG; Start 08/28/18 at 22:00 Acetaminophen/ Hydrocodone Bitart (Blomkest (10)) 1 tab Q6H PRN PO PAIN Last administered on 08/30/18at 15:48; Admin Dose 1 TAB; Start 08/28/18 at 22:00 Senna (Senokot) 1 tab DAILY PO Last administered on 08/30/18 08:20; Admin Dose 1 TAB; Start 08/29/18 at 09:00 Ceftriaxone Sodium 50 ml @ 100 mls/hr Q24H IVPB Last administered on 08/30/18at 20:51; Admin Dose 100 MLS/HR; Start 08/29/18 at 21:30 Diagnostic Test (Pha) (Accu-Chek) 1 ea 02 XX Last administered on 08/31/18at 02:00; Admin Dose 1 EA; Start 08/29/18 at 02:00 Insulin Aspart (Novolog Insulin Pen) NOVOLOG *MILD* ALGORITHM WITH MEALS BEDTIME SC Last administered on 08/30/18 17:49; Admin Dose 1 UNIT; Start 08/29/18 at 07:55 Miscellaneous Information 1 ea NOTE XX ; Start 08/28/18 at 23:45 Glucose (Glutose) 15 gm Q15M PRN PO DECREASED GLUCOSE; Start 08/28/18 at 23:45 Glucose (Glutose) 22.5 gm Q15M PRN PO DECREASED GLUCOSE; Start 08/28/18 at 23:45 Dextrose (D50w Syringe) 25 ml Q15M PRN IV DECREASED GLUCOSE; Start 08/28/18 at 23:45 Dextrose (D50w Syringe) 50 ml Q15M PRN IV DECREASED GLUCOSE; Start 08/28/18 at 23:45 Glucagon (Glucagen) 1 mg Q15M PRN IM DECREASED GLUCOSE; Start 08/28/18 at 23:45 Glucose (Glutose) 15 gm Q15M PRN BUCCAL DECREASED GLUCOSE; Start 08/28/18 at 23:45 Insulin Aspart (Novolog Insulin Pen) 4 unit WITH MEALS SC Last administered on 08/30/18at 17:49; Admin Dose 4 UNIT; Start 08/29/18 at 17:55 Ferrous Sulfate (Ferrous Sulfate (Ec)) 325 mg BID PO Last administered on 08/31/18at 08:15; Admin Dose 325 MG; Start 08/29/18 at 21:00 Pantoprazole (Protonix Iv) 40 mg BID@06,18 IV Last administered on 08/31/18 05:58; Admin Dose 40 MG; Start 08/29/18 at 18:00 Gabapentin (Neurontin) 100 mg TID PO Last administered on 08/31/18 08:15; Admin Dose 100 MG; Start 08/29/18 at 21:00 Erythromycin (Erythromycin) 250 mg Q8 PO Last administered on 08/31/18 05:58; Admin Dose 250 MG; Start 08/29/18 at 22:00 Azithromycin 250 mg/Sodium Chloride 250 ml @ 250 mls/hr Q24H IVPB Last administered on 08/30/18 17:36; Admin Dose 250 MLS/HR; Start 08/29/18 at 17:00 Metoprolol Tartrate (Lopressor) 25 mg DAILY PO Last administered on 08/31/18 08:15; Admin Dose 25 MG; Start 08/29/18 at 16:00 Hydralazine HCl (Apresoline) 10 mg Q6H PRN IV ELEVATED BLOOD PRESSURE; Start 08/29/18 at 19:00 Docusate Sodium (Colace) 100 mg BID PO Last administered on 08/30/18 20:50; Admin Dose 100 MG; Start 08/29/18 at 21:30 Polyethylene Glycol (Miralax) 17 gm DAILY PO Last administered on 08/30/18 08:20; Admin Dose 17 GM; Start 08/29/18 at 21:30 Insulin Glargine (Lantus) 20 units HS SC Last administered on 08/30/18at 20:54; Admin Dose 20 UNITS; Start 08/30/18 at 21:00 FRANCE BUCKLEY NP August 31, 2018 11:29
--- NOTE | 2018-08-31 15:41 | PREAC ---
Date/Time of Note Date/Time of Note DATE: 08/31/18 TIME: 15:40 Anesthesia Eval and Record Evaluation Time Pre-Procedure Interview DATE: 08/31/18 TIME: 15:40 Age 52 Sex female NPO: 8 hrs Preoperative diagnosis Anemia Planned procedure EGD Past Medical History Past Medical History: Includes Cardio: HTN Endo: Diabetes Heme: Anemia Surgery & Anesthesia Issues No known issue Meds Anticoagulation: No Beta Yuliana within 24 hr: No Reason Beta Yuliana not given: Pt. not on B-Yuliana Active Scripts Sennosides* (Senna Lax*) 8.6 Mg Tablet, 1 TAB PO DAILY, #30 TAB Prov:SHAVON QUEEN MD 01/31/17 Docusate Sodium* (Colace*) 100 Mg Capsule, 100 MG PO TID, #30 CAP Prov:SHAVON QUEEN MD 01/31/17 Ondansetron (Ondansetron Odt) 4 Mg Tab.rapdis, 4 MG PO Q6H PRN for NAUSEA AND/OR VOMITING, #10 TAB Prov:SHAVON QUEEN MD 01/31/17 Hydrocodone/Acetaminophen ([place] 10-325 Tablet) 1 Each Tablet, 1 TAB PO Q6H PRN for PAIN, #7 TAB Prov:SHAVON QUEEN MD 01/31/17 Reported Medications Insulin Glargine,Hum.rec.anlog (Basaglar Kwikpen U-100) 100 Unit/1 Ml Insuln.pen, 20 UNIT SC QHS 01/31/17 Metformin Hcl* (Metformin Hcl*) 1,000 Mg Tablet, 1000 MG PO WITH BREAKFAST DINNE, #60 TAB 01/31/17 Atorvastatin Calcium* (Atorvastatin Calcium*) 20 Mg Tablet, 20 MG PO QHS, #30 TAB 01/31/17 Losartan Potassium* (Losartan Potassium*) 50 Mg Tablet, 50 MG PO DAILY, TAB 01/31/17 Gabapentin* (Gabapentin*) 300 Mg Capsule, 300 MG PO QHS, #60 CAP 01/31/17 Current Medications IV Flush (NS 3 ml) 3 ml PER PROTOCOL IV ; Start 08/28/18 at 22:00 Ondansetron HCl (Zofran Inj) 4 mg Q6H PRN IV NAUSEA/VOMITING Last administered on 08/30/18at 18:50; Admin Dose 4 MG; Start 08/28/18 at 22:00 Acetaminophen (Tylenol Tab) 650 mg Q6H PRN PO .PAIN 1-3 OR TEMP Last administered on 08/29/18 16:31; Admin Dose 650 MG; Start 08/28/18 at 22:00 Albuterol/ Ipratropium (Duoneb) 3 ml Q2H RESP THERAPY PRN HHN SHORTNESS OF BREATH; Start 08/28/18 at 22:00 Atorvastatin Calcium (Lipitor) 20 mg QHS PO Last administered on 08/30/18 20:50; Admin Dose 20 MG; Start 08/28/18 at 22:00 Acetaminophen/ Hydrocodone Bitart ([place] (10)) 1 tab Q6H PRN PO PAIN Last administered on 08/30/18 15:48; Admin Dose 1 TAB; Start 08/28/18 at 22:00 Senna (Senokot) 1 tab DAILY PO Last administered on 08/30/18 08:20; Admin Dose 1 TAB; Start 08/29/18 at 09:00 Ceftriaxone Sodium 50 ml @ 100 mls/hr Q24H IVPB Last administered on 08/30/18 20:51; Admin Dose 100 MLS/HR; Start 08/29/18 at 21:30 Diagnostic Test (Pha) (Accu-Chek) 1 ea 02 XX Last administered on 08/31/18 02:00; Admin Dose 1 EA; Start 08/29/18 at 02:00 Insulin Aspart (Novolog Insulin Pen) NOVOLOG *MILD* ALGORITHM WITH MEALS BEDTIME SC Last administered on 08/30/18 17:49; Admin Dose 1 UNIT; Start 08/29/18 at 07:55 Miscellaneous Information 1 ea NOTE XX ; Start 08/28/18 at 23:45 Glucose (Glutose) 15 gm Q15M PRN PO DECREASED GLUCOSE; Start 08/28/18 at 23:45 Glucose (Glutose) 22.5 gm Q15M PRN PO DECREASED GLUCOSE; Start 08/28/18 at 23:45 Dextrose (D50w Syringe) 25 ml Q15M PRN IV DECREASED GLUCOSE; Start 08/28/18 at 23:45 Dextrose (D50w Syringe) 50 ml Q15M PRN IV DECREASED GLUCOSE; Start 08/28/18 at 23:45 Glucagon (Glucagen) 1 mg Q15M PRN IM DECREASED GLUCOSE; Start 08/28/18 at 23:45 Glucose (Glutose) 15 gm Q15M PRN BUCCAL DECREASED GLUCOSE; Start 08/28/18 at 23:45 Insulin Aspart (Novolog Insulin Pen) 4 unit WITH MEALS SC Last administered on 08/30/18 17:49; Admin Dose 4 UNIT; Start 08/29/18 at 17:55 Ferrous Sulfate (Ferrous Sulfate (Ec)) 325 mg BID PO Last administered on 08/31/18 08:15; Admin Dose 325 MG; Start 08/29/18 at 21:00 Pantoprazole (Protonix Iv) 40 mg BID@06,18 IV Last administered on 08/31/18 05:58; Admin Dose 40 MG; Start 08/29/18 at 18:00 Gabapentin (Neurontin) 100 mg TID PO Last administered on 08/31/18 13:22; Admin Dose 100 MG; Start 08/29/18 at 21:00 Erythromycin (Erythromycin) 250 mg Q8 PO Last administered on 08/31/18 13:22; Admin Dose 250 MG; Start 08/29/18 at 22:00 Azithromycin 250 mg/Sodium Chloride 250 ml @ 250 mls/hr Q24H IVPB Last administered on 08/30/18 17:36; Admin Dose 250 MLS/HR; Start 08/29/18 at 17:00 Metoprolol Tartrate (Lopressor) 25 mg DAILY PO Last administered on 08/31/18 08:15; Admin Dose 25 MG; Start 08/29/18 at 16:00 Hydralazine HCl (Apresoline) 10 mg Q6H PRN IV ELEVATED BLOOD PRESSURE; Start 08/29/18 at 19:00 Docusate Sodium (Colace) 100 mg BID PO Last administered on 08/30/18 20:50; Admin Dose 100 MG; Start 08/29/18 at 21:30 Polyethylene Glycol (Miralax) 17 gm DAILY PO Last administered on 08/30/18 08:20; Admin Dose 17 GM; Start 08/29/18 at 21:30 Insulin Glargine (Lantus) 20 units HS SC Last administered on 08/30/18 20:54; Admin Dose 20 UNITS; Start 08/30/18 at 21:00 Meds reviewed: Yes Allergies Coded Allergies: Penicillins (Verified Allergy, Unknown, rash, 01/31/17) Allergies Reviewed: Yes Labs/Studies Labs Reviewed: Reviewed by anesthesiologist Result Diagram: 08/31/18 0559 08/31/18 0559 Laboratory Tests 08/31/18 05:59 test: N/A Studies: ECG Pre-procedure Exam Last vitals Vital Signs Date Temp Pulse Resp B/P (MAP) Pulse Ox O2 O2 Flow FiO2 Time Delivery Rate 08/31/18 Simple 10 15:10 Mask 08/31/18 67 12:00 08/31/18 97.6 20 151/67 96 11:32 (95) Airway: Adequate mouth opening, Adequate thyromental dist Mallampati: Mallampati II Teeth: Normal Lung: Normal Heart: Normal ASA Physical Status ASA physical status: 3 Emergency: None Planned Anesthetic General/MAC: MAC Planned Pain Management Parenteral pain med Pre-operative Attestations Prior to commencing anesthesia and surgery, the patient was re-evaluated, there was verification of: *The patient's identity *The results of appropriate recent lab work and preoperative vital signs *The above evaluation not changing prior to induction *Anesthetic plan, risk benefits, alternative and complications discussed with pa tient/family; questions answered; patient/family understands, accepts and wishes to proceed. DAVID RAI MD August 31, 2018 15:41
[2018-08-31] MEDS ORDERED: PROPOFOL 40 ML ONE (15:42)
[2018-08-31] MEDS ORDERED: LIDOCAINE 2% (SDV) 5 ML INJ ONE (15:42)
--- NOTE | 2018-08-31 16:01 | PAC ---
Date/Time of Note Date/Time of Note DATE: 08/31/18 TIME: 16:01 Post-Anesthesia Notes Post-Anesthesia Note Last documented vital signs Vital Signs Date Temp Pulse Resp B/P (MAP) Pulse Ox O2 O2 Flow FiO2 Time Delivery Rate 08/31/18 Simple 10 15:10 Mask 08/31/18 67 12:00 08/31/18 97.6 20 151/67 96 11:32 (95) Activity: WNL Respiratory function: WNL Cardiovascular function: WNL Mental status: Baseline Pain reasonably controlled: Yes Hydration appropriate: Yes Nausea/Vomiting absent: Yes Comments BP:122/56, P;78, Spo2:100%, T:98,8 DAVID RAI MD August 31, 2018 16:01
[2018-08-31] MEDS: AZITHROMYCIN 250 MG in SOD CHLORIDE 0.9% 250 ML IVPB SCH (17:58)
--- NOTE | 2018-08-31 20:36 | CONS ---
Assessment/Plan Assessment/Plan Hospital Course (Demo Recall) 52-year-old female has a history of hypertension, insulin-dependent type 2 diabetes, dyslipidemia, pyelonephritis. She presented to the ER complaining of lower extremity swelling, cough, shortness of breath and generalized body ache. In the ER, she was febrile with a temperature of 101 and her creatinine was 2.6 She then underwent renal ultrasound and a CT scan of the abdomen and pelvis and these did show: Renal ultrasound: 52-year-old female with a history of hypertension, insulin-dependent type 2 diabetes, dyslipidemia, pyelonephritis who presents the ER complaining of lower extremity swelling, cough, shortness of breath, generalized body ache. In the ER, she was febrile with a temperature of 101. Labs shows a creatinine of 2.6, CT scan of the abdomen and pelvis: 1. Moderate bilateral pleural effusions with adjacent dense atelectasis. 2. Alveolar infiltration and edema within the lung bases bilaterally. 3. Air within the bladder and left intrarenal collecting system. Cystitis with emphysematous pyelonephritis is a possibility. Air introduced from recent prior instrumentation procedure is within the differential. 4. Scattered bilateral perinephric stranding and edema, chronic. Pyelonephritis could cause this appearance. 5. Scattered mild mesenteric edema, with mild layering pelvic free fluid. 6. Pancreatic atrophy with chronic pseudocyst of the tail of the pancreas. 7. Diffuse third spacing and edema throughout the subcutaneous tissues of the body. Therefore a urological consultation was requested. The patient states that she does have pain with urination and flank pain. She denies any nausea or vomiting. But she did have fever. She reports a history of urinary tract infection once before. Urine culture now did show E. coli that is resistant to Cipro and Bactrim. The air that she has in the bladder and in the left collecting system could be secondary to the urinary tract infection and the treatment will still be the same which is basically treat her infection with the proper antibiotic. Consultation Date/Type/Reason Admit Date/Time August 28, 2018 Date of Consultation: August 31, 2018 Type of Consult Urology Reason for Consultation Urinary tract infection and possible emphysematous cystitis and pyelonephritis. Requesting Provider: JOSEPHINE COVARRUBIAS MD Date/Time of Note DATE: 08/31/18 TIME: 20:23 Hx of Present Illness 52-year-old female has a history of hypertension, insulin-dependent type 2 diabetes, dyslipidemia, pyelonephritis. She presented to the ER complaining of lower extremity swelling, cough, shortness of breath and generalized body ache. In the ER, she was febrile with a temperature of 101 and her creatinine was 2.6 She then underwent renal ultrasound and a CT scan of the abdomen and pelvis and these did show: Renal ultrasound: 52-year-old female with a history of hypertension, insulin-dependent type 2 diabetes, dyslipidemia, pyelonephritis who presents the ER complaining of lower extremity swelling, cough, shortness of breath, generalized body ache. In the ER, she was febrile with a temperature of 101. Labs shows a creatinine of 2.6, CT scan of the abdomen and pelvis: 1. Moderate bilateral pleural effusions with adjacent dense atelectasis. 2. Alveolar infiltration and edema within the lung bases bilaterally. 3. Air within the bladder and left intrarenal collecting system. Cystitis with emphysematous pyelonephritis is a possibility. Air introduced from recent prior instrumentation procedure is within the differential. 4. Scattered bilateral perinephric stranding and edema, chronic. Pyelonephritis could cause this appearance. 5. Scattered mild mesenteric edema, with mild layering pelvic free fluid. 6. Pancreatic atrophy with chronic pseudocyst of the tail of the pancreas. 7. Diffuse third spacing and edema throughout the subcutaneous tissues of the body. Therefore a urological consultation was requested. The patient states that she does have pain with urination and flank pain. She denies any nausea or vomiting. But she did have fever. She reports a history of urinary tract infection once before. Constitutional: no complaints, febrile (At the time of admission) Eyes: other (She did have bilateral cataract surgery and eye problems) ENT: no complaints Respiratory: no complaints; No shortness of breath, No wheezing Cardiovascular: no complaints; No chest pain Gastrointestinal: no complaints Genitourinary: dysuria, flank pain (Bilateral) Musculoskeletal: no complaints Skin: no complaints Neurologic: no complaints Endocrine: no complaints Psychological: no complaints Past Medical History Medical History: diabetes, high cholesterol, hypertension Home Meds Active Scripts Sennosides* (Senna Lax*) 8.6 Mg Tablet, 1 TAB PO DAILY, #30 TAB Prov:SHAVON QUEEN MD 01/31/17 Docusate Sodium* (Colace*) 100 Mg Capsule, 100 MG PO TID, #30 CAP Prov:SHAVON QUEEN MD 01/31/17 Ondansetron (Ondansetron Odt) 4 Mg Tab.rapdis, 4 MG PO Q6H PRN for NAUSEA AND/OR VOMITING, #10 TAB Prov:SHAVON QUEEN MD 01/31/17 Hydrocodone/Acetaminophen ([place] 10-325 Tablet) 1 Each Tablet, 1 TAB PO Q6H PRN for PAIN, #7 TAB Prov:SHAVON QUEEN MD 01/31/17 Reported Medications Insulin Glargine,Hum.rec.anlog (Basaglar Kwikpen U-100) 100 Unit/1 Ml Insuln.pen, 20 UNIT SC QHS 01/31/17 Metformin Hcl* (Metformin Hcl*) 1,000 Mg Tablet, 1000 MG PO WITH BREAKFAST DINNE, #60 TAB 01/31/17 Atorvastatin Calcium* (Atorvastatin Calcium*) 20 Mg Tablet, 20 MG PO QHS, #30 TAB 01/31/17 Losartan Potassium* (Losartan Potassium*) 50 Mg Tablet, 50 MG PO DAILY, TAB 01/31/17 Gabapentin* (Gabapentin*) 300 Mg Capsule, 300 MG PO QHS, #60 CAP 01/31/17 Medications Current Medications IV Flush (NS 3 ml) 3 ml PER PROTOCOL IV ; Start 08/28/18 at 22:00 Ondansetron HCl (Zofran Inj) 4 mg Q6H PRN IV NAUSEA/VOMITING Last administered on 08/30/18at 18:50; Admin Dose 4 MG; Start 08/28/18 at 22:00 Acetaminophen (Tylenol Tab) 650 mg Q6H PRN PO .PAIN 1-3 OR TEMP Last administered on 08/29/18at 16:31; Admin Dose 650 MG; Start 08/28/18 at 22:00 Albuterol/ Ipratropium (Duoneb) 3 ml Q2H RESP THERAPY PRN HHN SHORTNESS OF BREATH; Start 08/28/18 at 22:00 Atorvastatin Calcium (Lipitor) 20 mg QHS PO Last administered on 08/30/18at 20:50; Admin Dose 20 MG; Start 08/28/18 at 22:00 Acetaminophen/ Hydrocodone Bitart ([place] (10/325)) 1 tab Q6H PRN PO PAIN Last administered on 08/30/18at 15:48; Admin Dose 1 TAB; Start 08/28/18 at 22:00 Senna (Senokot) 1 tab DAILY PO Last administered on 08/30/18 08:20; Admin Dose 1 TAB; Start 08/29/18 at 09:00 Ceftriaxone Sodium 50 ml @ 100 mls/hr Q24H IVPB Last administered on 08/30/18 20:51; Admin Dose 100 MLS/HR; Start 08/29/18 at 21:30 Diagnostic Test (Pha) (Accu-Chek) 1 ea 02 XX Last administered on 08/31/18at 02:00; Admin Dose 1 EA; Start 08/29/18 at 02:00 Insulin Aspart (Novolog Insulin Pen) NOVOLOG *MILD* ALGORITHM WITH MEALS BEDTIME SC Last administered on 08/31/18 17:43; Admin Dose 1 UNIT; Start 08/29/18 at 07:55 Miscellaneous Information 1 ea NOTE XX ; Start 08/28/18 at 23:45 Glucose (Glutose) 15 gm Q15M PRN PO DECREASED GLUCOSE; Start 08/28/18 at 23:45 Glucose (Glutose) 22.5 gm Q15M PRN PO DECREASED GLUCOSE; Start 08/28/18 at 23:45 Dextrose (D50w Syringe) 25 ml Q15M PRN IV DECREASED GLUCOSE; Start 08/28/18 at 23:45 Dextrose (D50w Syringe) 50 ml Q15M PRN IV DECREASED GLUCOSE; Start 08/28/18 at 23:45 Glucagon (Glucagen) 1 mg Q15M PRN IM DECREASED GLUCOSE; Start 08/28/18 at 23:45 Glucose (Glutose) 15 gm Q15M PRN BUCCAL DECREASED GLUCOSE; Start 08/28/18 at 23:45 Insulin Aspart (Novolog Insulin Pen) 4 unit WITH MEALS SC Last administered on 08/31/18at 17:43; Admin Dose 4 UNIT; Start 08/29/18 at 17:55 Ferrous Sulfate (Ferrous Sulfate (Ec)) 325 mg BID PO Last administered on 08/31/18at 08:15; Admin Dose 325 MG; Start 08/29/18 at 21:00 Pantoprazole (Protonix Iv) 40 mg BID@06,18 IV Last administered on 08/31/18at 17 :36; Admin Dose 40 MG; Start 08/29/18 at 18:00 Gabapentin (Neurontin) 100 mg TID PO Last administered on 08/31/18 13:22; Admin Dose 100 MG; Start 08/29/18 at 21:00 Erythromycin (Erythromycin) 250 mg Q8 PO Last administered on 08/31/18 13:22; Admin Dose 250 MG; Start 08/29/18 at 22:00 Azithromycin 250 mg/Sodium Chloride 250 ml @ 250 mls/hr Q24H IVPB Last administered on 08/31/18 17:58; Admin Dose 250 MLS/HR; Start 08/29/18 at 17:00 Metoprolol Tartrate (Lopressor) 25 mg DAILY PO Last administered on 08/31/18 08:15; Admin Dose 25 MG; Start 08/29/18 at 16:00 Hydralazine HCl (Apresoline) 10 mg Q6H PRN IV ELEVATED BLOOD PRESSURE; Start 08/29/18 at 19:00 Docusate Sodium (Colace) 100 mg BID PO Last administered on 08/30/18 20:50; Admin Dose 100 MG; Start 08/29/18 at 21:30 Polyethylene Glycol (Miralax) 17 gm DAILY PO Last administered on 08/30/18 08:20; Admin Dose 17 GM; Start 08/29/18 at 21:30 Insulin Glargine (Lantus) 20 units HS SC Last administered on 08/30/18 20:54; Admin Dose 20 UNITS; Start 08/30/18 at 21:00 Allergies: Coded Allergies: Penicillins (Verified Allergy, Unknown, rash, 01/31/17) Past Surgical History Past Surgical Hx: cholecystectomy, other (Cataract surgery, ectopic surgery. Tubal ligation) Social History Alcohol Use: none Smoking Status: Never smoker Drug Use: none Exam/Review of Systems Exam Vitals Vital Signs Date Temp Pulse Resp B/P (MAP) Pulse Ox O2 O2 Flow FiO2 Time Delivery Rate 08/31/18 98.5 72 20 137/72 98 20:02 (93) 08/31/18 Room Air 16:24 08/31/18 10 15:10 Intake and Output 08/30/18 08/30/18 08/31/18 1515:00 23:00 07:00 IntakeIntake Total 1450 ml 1000 ml BalanceBalance 1450 ml 1000 ml Constitutional: alert Psych: no complaints Head: normocephalic Eyes: nl conjunctiva ENMT: nl external ears & nose Neck: supple Respiratory: normal air movement; No wheezing Cardiovascular: No jugular venous distention (JVD) Gastrointestinal: soft, other (Suprapubic tenderness) Genitourinary - Female: CVA tenderness (Bilateral, left more than right) Musculoskeletal: nl extremities to inspection Extremities: No calf tenderness Neurological: nl mental status Results Result Diagram: 08/31/18 0559 08/31/18 0559 Results 24hrs Laboratory Tests Test 08/30/18 20:37 08/31/18 04:00 08/31/18 05:59 08/31/18 06:00 Bedside Glucose 131 145 White Blood Count 7.2 Red Blood Count 2.64 L Hemoglobin 7.4 L Hematocrit 23.0 L Mean Corpuscular 87.1 Volume Mean Corpuscular 28.0 L Hemoglobin Mean Corpuscular 32.2 Hemoglobin Concent Red Cell 13.0 Distribution Width Platelet Count 241 Mean Platelet Volume 11.0 H Immature 0.300 Granulocytes % Neutrophils % 61.1 Lymphocytes % 28.0 Monocytes % 7.8 Eosinophils % 2.5 Basophils % 0.3 Nucleated Red Blood 0.0 Cells % Immature 0.020 Granulocytes # Neutrophils # 4.4 Lymphocytes # 2.0 Monocytes # 0.6 Eosinophils # 0.2 Basophils # 0.0 Nucleated Red Blood 0.0 Cells # Sodium Level 137 Potassium Level 4.3 Chloride Level 112 H Carbon Dioxide Level 21 Anion Gap 4 L Blood Urea Nitrogen 33 H Creatinine 2.38 H Est Glomerular 21 L Filtrat Rate mL/min Glucose Level 131 # Calcium Level 8.1 L Rheumatoid Factor NEGATIVE Screen Test 08/31/18 07:55 08/31/18 09:35 08/31/18 12:33 08/31/18 15:28 Bedside Glucose 128 137 128 Complement C3 119 Complement C4 35 Hepatitis B Surface NEGATIVE Antigen Hepatitis B Core NEGATIVE Total Antibody Hepatitis C Antibody REACTIVE H Test 08/31/18 17:00 Bedside Glucose 141 Urine culture: URINE CULTURE Final Organism 1 ESCHERICHIA COLI COLONY COUNT <10,000 CFU/ml E COLI M.I.C. RX --------- --- AMPICILLIN <=2 S CEFAZOLIN <=4 S CEFOTAXIME S CIPROFLOXACIN >=4 R GENTAMICIN <=1 S LEVOFLOXACIN >=8 R NITROFURANTOIN <=16 S TOBRAMYCIN <=1 S TRIMETHOPRIM/SULFAMETHOXAZOLE >=320 R Imaging Imaging Renal ultrasound: 52-year-old female with a history of hypertension, insulin-dependent type 2 diabetes, dyslipidemia, pyelonephritis who presents the ER complaining of lower extremity swelling, cough, shortness of breath, generalized body ache. In the ER, she was febrile with a temperature of 101. Labs shows a creatinine of 2.6, CT scan of the abdomen and pelvis: 1. Moderate bilateral pleural effusions with adjacent dense atelectasis. 2. Alveolar infiltration and edema within the lung bases bilaterally. 3. Air within the bladder and left intrarenal collecting system. Cystitis with emphysematous pyelonephritis is a possibility. Air introduced from recent prior instrumentation procedure is within the differential. 4. Scattered bilateral perinephric stranding and edema, chronic. Pyelonephritis could cause this appearance. 5. Scattered mild mesenteric edema, with mild layering pelvic free fluid. 6. Pancreatic atrophy with chronic pseudocyst of the tail of the pancreas. 7. Diffuse third spacing and edema throughout the subcutaneous tissues of the body. Medications Medication Current Medications IV Flush (NS 3 ml) 3 ml PER PROTOCOL IV ; Start 08/28/18 at 22:00 Ondansetron HCl (Zofran Inj) 4 mg Q6H PRN IV NAUSEA/VOMITING Last administered on 08/30/18 18:50; Admin Dose 4 MG; Start 08/28/18 at 22:00 Acetaminophen (Tylenol Tab) 650 mg Q6H PRN PO .PAIN 1-3 OR TEMP Last administered on 08/29/18 16:31; Admin Dose 650 MG; Start 08/28/18 at 22:00 Albuterol/ Ipratropium (Duoneb) 3 ml Q2H RESP THERAPY PRN HHN SHORTNESS OF BREATH; Start 08/28/18 at 22:00 Atorvastatin Calcium (Lipitor) 20 mg QHS PO Last administered on 08/30/18 20:50; Admin Dose 20 MG; Start 08/28/18 at 22:00 Acetaminophen/ Hydrocodone Bitart ([place] (10/325)) 1 tab Q6H PRN PO PAIN Last administered on 08/30/18at 15:48; Admin Dose 1 TAB; Start 08/28/18 at 22:00 Senna (Senokot) 1 tab DAILY PO Last administered on 08/30/18 08:20; Admin Dose 1 TAB; Start 08/29/18 at 09:00 Ceftriaxone Sodium 50 ml @ 100 mls/hr Q24H IVPB Last administered on 08/30/18 20:51; Admin Dose 100 MLS/HR; Start 08/29/18 at 21:30 Diagnostic Test (Pha) (Accu-Chek) 1 ea 02 XX Last administered on 08/31/18at 02:00; Admin Dose 1 EA; Start 08/29/18 at 02:00 Insulin Aspart (Novolog Insulin Pen) NOVOLOG *MILD* ALGORITHM WITH MEALS BEDTIME SC Last administered on 08/31/18 17:43; Admin Dose 1 UNIT; Start 08/29/18 at 07:55 Miscellaneous Information 1 ea NOTE XX ; Start 08/28/18 at 23:45 Glucose (Glutose) 15 gm Q15M PRN PO DECREASED GLUCOSE; Start 08/28/18 at 23:45 Glucose (Glutose) 22.5 gm Q15M PRN PO DECREASED GLUCOSE; Start 08/28/18 at 23:45 Dextrose (D50w Syringe) 25 ml Q15M PRN IV DECREASED GLUCOSE; Start 08/28/18 at 23:45 Dextrose (D50w Syringe) 50 ml Q15M PRN IV DECREASED GLUCOSE; Start 08/28/18 at 23:45 Glucagon (Glucagen) 1 mg Q15M PRN IM DECREASED GLUCOSE; Start 08/28/18 at 23:45 Glucose (Glutose) 15 gm Q15M PRN BUCCAL DECREASED GLUCOSE; Start 08/28/18 at 23:45 Insulin Aspart (Novolog Insulin Pen) 4 unit WITH MEALS SC Last administered on 08/31/18 17:43; Admin Dose 4 UNIT; Start 08/29/18 at 17:55 Ferrous Sulfate (Ferrous Sulfate (Ec)) 325 mg BID PO Last administered on 08/31/18 08:15; Admin Dose 325 MG; Start 08/29/18 at 21:00 Pantoprazole (Protonix Iv) 40 mg BID@06,18 IV Last administered on 08/31/18 17:36; Admin Dose 40 MG; Start 08/29/18 at 18:00 Gabapentin (Neurontin) 100 mg TID PO Last administered on 08/31/18 13:22; Admin Dose 100 MG; Start 08/29/18 at 21:00 Erythromycin (Erythromycin) 250 mg Q8 PO Last administered on 08/31/18 13:22; Admin Dose 250 MG; Start 08/29/18 at 22:00 Azithromycin 250 mg/Sodium Chloride 250 ml @ 250 mls/hr Q24H IVPB Last administered on 08/31/18 17:58; Admin Dose 250 MLS/HR; Start 08/29/18 at 17:00 Metoprolol Tartrate (Lopressor) 25 mg DAILY PO Last administered on 08/31/18 08:15; Admin Dose 25 MG; Start 08/29/18 at 16:00 Hydralazine HCl (Apresoline) 10 mg Q6H PRN IV ELEVATED BLOOD PRESSURE; Start 08/29/18 at 19:00 Docusate Sodium (Colace) 100 mg BID PO Last administered on 08/30/18 20:50; Admin Dose 100 MG; Start 08/29/18 at 21:30 Polyethylene Glycol (Miralax) 17 gm DAILY PO Last administered on 08/30/18 08:20; Admin Dose 17 GM; Start 08/29/18 at 21:30 Insulin Glargine (Lantus) 20 units HS SC Last administered on 08/30/18 20:54; Admin Dose 20 UNITS; Start 08/30/18 at 21:00 SHIMON CRUZ MD August 31, 2018 20:33
[2018-08-31] MEDS: ATORVASTATIN 20 MG TAB PO SCH (20:54)
[2018-08-31] MEDS: INSULIN GLARGINE [LANTus] (100 UNITS/ML) SYG SC SCH (20:57)
[2018-08-31] MEDS: HYDROCODONE/APAP (10/325) TAB PO PRN (22:32)
[2018-08-31] MEDS: CEFTRIAXONE 1 GM/50 ML (PMX) 50 ML IVPB SCH (22:42)
[2018-09-01] MEDS: ERYTHROMYCIN BASE (DR) 250 MG CAP PO SCH ×3 (00:30→12:56)
[2018-09-01 01:30] VITALS: BP 157/70; PULSE 75; RESP 18
[2018-09-01] MEDS: ACCU-CHEK XX SCH (02:00)
[2018-09-01] MEDS: PANTOPRAZOLE 40 MG INJ IV SCH (05:54)
[2018-09-01] MEDS: INSULIN ASPART [NOVOLOG] 3 ML PEN SC SCH ×4 (08:09→12:50)
[2018-09-01] MEDS: ONDANSETRON 4 MG INJ IV PRN (08:11)
[2018-09-01] MEDS: DOCUSATE SODIUM 100 MG CAP PO SCH (08:21)
[2018-09-01] MEDS: GABAPENTIN 100 MG CAP PO SCH ×2 (08:21→12:56)
[2018-09-01] MEDS: SENNA TAB PO SCH (08:21)
[2018-09-01] MEDS: FERROUS SULFATE (EC) 325 MG TAB PO SCH (08:21)
[2018-09-01] MEDS: POLYETHYLENE GLYCOL 17 GM PACKET PO SCH (08:22)
[2018-09-01] MEDS: METOPROLOL 25 MG TAB PO SCH (08:24)
[2018-09-01 08:52] VITALS: BP 177/84; PULSE 76; RESP 20
--- NOTE | 2018-09-01 11:36 | PN ---
DATE: 09/01/2018 SUBJECTIVE: The patient is stable, no events overnight. No fever, chills, nausea or vomiting. OBJECTIVE: VITAL SIGNS: Blood pressure is 177/84, respirations 20, pulse 76, temperature 97.8. HEENT: Head is normocephalic. NECK: Supple. HEART: Regular rate. LUNGS: Show diminished breath sounds at the base. ABDOMEN: Soft, nontender to palpation without rebound or guarding. EXTREMITIES: Negative for clubbing, cyanosis, no edema. DERMATOLOGIC: No rashes. MUSCULOSKELETAL: No joint effusion. NEUROLOGIC: No change in exam. MEDICATIONS: Reviewed. LABORATORY DATA: Reviewed. ASSESSMENT AND PLAN: 1. Nonoliguric acute kidney injury on top of chronic kidney disease with unknown baseline creatinine . Etiology of acute kidney injury is secondary to hemodynamics. Renal function has slowly been impr oving. Continue current treatment plans, supportive care, and renally dose all medications. 2. 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 Etiology is likely due to diabetic neph ropathy. Serological workup has been sent out, negative to date. We will continue to monitor. We w ould otherwise continue current treatment plan, disease factor modification with good glycemic and bl ood pressure control. 3. Anemia. Monitor hemoglobin and hematocrit levels. 4. Abdominal pain. The patient is status post EGD, results are pending. Continue to monitor. Cont inue proton pump inhibitor. 5. Mineral bone disorder. Monitor calcium and phosphorus levels. 6. Sepsis. Continue current antibiotic regimen. Follow up with urology. 7. History of hepatitis C. 8. Diabetes. Continue current insulin regimen. 9. Dyslipidemia. Continue statin therapy. 10. Hypertension. Continue current blood pressure regimen. Defer any JUMANA inhibitor or ARB at this time until renal function stabilizes. Dictated By: NICOLAS HALL DO NR/NTS Conf#: [id number] DID#: [id number] CC: JOSEPHINE COVARRUBIAS MD; SHIMON CRUZ MD;*EndCC*
--- NOTE | 2018-09-01 11:58 | PN ---
Date/Time of Note Date/Time of Note DATE: 09/01/18 TIME: 11:46 Assessment/Plan VTE Prophylaxis Risk score (from Ns)>0 risk: 2 SCD applied (from Ns): No SCD contraindicated: other (scds) Pharmacological prophylaxis: other (scds) Lines/Catheters IV [facility] Saline Lock Assessment/Plan Hospital Course Summary Assessment and Plan: Assessment: Abdominal pain/N/V -PUD vs gastroparesis -Started on erythromycin, symptoms have improved EGD 08/31/2018 Irregular GE junction. Rule out Graham's esophagus, biopsies obtained. Nonobstructing esophageal web estimated lumen more than 15 mm. Moderate gastritis. Rule out H. pylori infection, biopsies obtained. Melena Normocytic anemia -Hx of colonoscopy 2016- Colonoscopy all the way to the cecum. No colon neoplasm was identified. Small internal hemorrhoids. DM, type 2 (poorly controlled) Hepatitis C, untreated -AB positive (RNA not available) -Pt states she was diagnosed last month, has an appt tomorrow with GI/Hepatology- instructed to reschedule CAP- on antibiotic treatment per medical team Air in bladder, on imaging -Cystitis with emphysematous pyelonephritis is a possibility. Air introduced from recent prior instrumentation procedure is within the differential. Scattered bilateral perinephric stranding and edema, chronic. Pyelonephritis could cause this appearance. 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 send medical records to PCP Patient seen in collaboration with Dr. Coker Subjective: Patient states she feel better today Discussed results of EGD, await pathology results No c/o n/v, epigastric pain has improved. Exam PHYSICAL EXAMINATION: GENERAL: Well developed, well nourished, alert & oriented x 3, in no acute distress SKIN: No lesions HEAD: Normocephalic, atraumatic, no tenderness. EYES: Pupils equal reactive to light and accommodation, no discharge. EARS/NOSE AND THROAT: Ears normal, nose normal, oropharynx normal. NECK: Supple, no masses. CHEST: Inspection within normal limits. CARDIOVASCULAR: Heart: Regular rate and rhythm RESPIRATORY: Lungs clear to auscultation GASTROINTESTINAL AND LIVER: Abdomen: Soft, non tenderness, non-distended, no hernias, no masses, no organomegaly, no ascites, no guarding, no rebound tenderness, normoactive bowel sounds. Rectal: Deferred. EXTREMITIES: No cyanosis, clubbing or edema. Result Diagram: 09/01/18 0627 09/01/18 0627 Results 24hrs Laboratory Tests Test 08/31/18 12:33 08/31/18 15:28 08/31/18 17:00 08/31/18 20:52 Bedside Glucose 137 128 141 155 Test 09/01/18 06:27 09/01/18 08:03 White Blood Count 8.2 Red Blood Count 3.11 L Hemoglobin 8.4 L Hematocrit 27.2 L Mean Corpuscular 87.5 Volume Mean Corpuscular 27.0 L Hemoglobin Mean Corpuscular 30.9 L Hemoglobin Concent Red Cell 13.3 Distribution Width Platelet Count 261 Mean Platelet Volume 11.8 H Immature 0.200 Granulocytes % Neutrophils % 63.1 Lymphocytes % 25.4 Monocytes % 7.9 Eosinophils % 2.8 Basophils % 0.6 Nucleated Red Blood 0.0 Cells % Immature 0.020 Granulocytes # Neutrophils # 5.2 Lymphocytes # 2.1 Monocytes # 0.7 Eosinophils # 0.2 Basophils # 0.1 Nucleated Red Blood 0.0 Cells # Sodium Level 135 Potassium Level 4.0 Chloride Level 108 Carbon Dioxide Level 21 Anion Gap 6 Blood Urea Nitrogen 36 H Creatinine 2.20 H Est Glomerular 23 L Filtrat Rate mL/min Glucose Level 188 Calcium Level 8.2 L Phosphorus Level 4.9 Magnesium Level 2.2 Bedside Glucose 210 Exam/Review of Systems Exam Vitals Vital Signs Date Temp Pulse Resp B/P (MAP) Pulse Ox O2 O2 Flow FiO2 Time Delivery Rate 09/01/18 97.8 76 20 177/84 97 Nasal 2.0 08:52 (115) Cannula Intake and Output 08/31/18 08/31/18 09/01/18 1515:00 23:00 07:00 IntakeIntake Total 650 ml 50 ml OutputOutput Total 200 ml BalanceBalance 450 ml 50 ml Results Results 24hrs Laboratory Tests Test 08/31/18 12:33 08/31/18 15:28 08/31/18 17:00 08/31/18 20:52 Bedside Glucose 137 128 141 155 Test 09/01/18 06:27 09/01/18 08:03 White Blood Count 8.2 Red Blood Count 3.11 L Hemoglobin 8.4 L Hematocrit 27.2 L Mean Corpuscular 87.5 Volume Mean Corpuscular 27.0 L Hemoglobin Mean Corpuscular 30.9 L Hemoglobin Concent Red Cell 13.3 Distribution Width Platelet Count 261 Mean Platelet Volume 11.8 H Immature 0.200 Granulocytes % Neutrophils % 63.1 Lymphocytes % 25.4 Monocytes % 7.9 Eosinophils % 2.8 Basophils % 0.6 Nucleated Red Blood 0.0 Cells % Immature 0.020 Granulocytes # Neutrophils # 5.2 Lymphocytes # 2.1 Monocytes # 0.7 Eosinophils # 0.2 Basophils # 0.1 Nucleated Red Blood 0.0 Cells # Sodium Level 135 Potassium Level 4.0 Chloride Level 108 Carbon Dioxide Level 21 Anion Gap 6 Blood Urea Nitrogen 36 H Creatinine 2.20 H Est Glomerular 23 L Filtrat Rate mL/min Glucose Level 188 Calcium Level 8.2 L Phosphorus Level 4.9 Magnesium Level 2.2 Bedside Glucose 210 Medications Medication Current Medications IV Flush (NS 3 ml) 3 ml PER PROTOCOL IV ; Start 08/28/18 at 22:00 Ondansetron HCl (Zofran Inj) 4 mg Q6H PRN IV NAUSEA/VOMITING Last administered on 09/01/18at 08:11; Admin Dose 4 MG; Start 08/28/18 at 22:00 Acetaminophen (Tylenol Tab) 650 mg Q6H PRN PO .PAIN 1-3 OR TEMP Last administered on 08/29/18 16:31; Admin Dose 650 MG; Start 08/28/18 at 22:00 Albuterol/ Ipratropium (Duoneb) 3 ml Q2H RESP THERAPY PRN HHN SHORTNESS OF BREATH; Start 08/28/18 at 22:00 Atorvastatin Calcium (Lipitor) 20 mg QHS PO Last administered on 08/31/18 20:54; Admin Dose 20 MG; Start 08/28/18 at 22:00 Acetaminophen/ Hydrocodone Bitart ([place] (10/325)) 1 tab Q6H PRN PO PAIN Last administered on 08/31/18 22:32; Admin Dose 1 TAB; Start 08/28/18 at 22:00 Senna (Senokot) 1 tab DAILY PO Last administered on 09/01/18 08:21; Admin Dose 1 TAB; Start 08/29/18 at 09:00 Ceftriaxone Sodium 50 ml @ 100 mls/hr Q24H IVPB Last administered on 08/31/18 22:42; Admin Dose 100 MLS/HR; Start 08/29/18 at 21:30 Diagnostic Test (Pha) (Accu-Chek) 1 ea 02 XX Last administered on 08/31/18 02:00; Admin Dose 1 EA; Start 08/29/18 at 02:00 Insulin Aspart (Novolog Insulin Pen) NOVOLOG *MILD* ALGORITHM WITH MEALS BEDTIME SC Last administered on 09/01/18 08:11; Admin Dose 2 UNIT; Start 08/29/18 at 07:55 Miscellaneous Information 1 ea NOTE XX ; Start 08/28/18 at 23:45 Glucose (Glutose) 15 gm Q15M PRN PO DECREASED GLUCOSE; Start 08/28/18 at 23:45 Glucose (Glutose) 22.5 gm Q15M PRN PO DECREASED GLUCOSE; Start 08/28/18 at 23:45 Dextrose (D50w Syringe) 25 ml Q15M PRN IV DECREASED GLUCOSE; Start 08/28/18 at 23:45 Dextrose (D50w Syringe) 50 ml Q15M PRN IV DECREASED GLUCOSE; Start 08/28/18 at 23:45 Glucagon (Glucagen) 1 mg Q15M PRN IM DECREASED GLUCOSE; Start 08/28/18 at 23:45 Glucose (Glutose) 15 gm Q15M PRN BUCCAL DECREASED GLUCOSE; Start 08/28/18 at 23:45 Insulin Aspart (Novolog Insulin Pen) 4 unit WITH MEALS SC Last administered on 09/01/18 08:09; Admin Dose 4 UNIT; Start 08/29/18 at 17:55 Ferrous Sulfate (Ferrous Sulfate (Ec)) 325 mg BID PO Last administered on 09/01/18 08:21; Admin Dose 325 MG; Start 08/29/18 at 21:00 Pantoprazole (Protonix Iv) 40 mg BID@06,18 IV Last administered on 09/01/18 05:54; Admin Dose 40 MG; Start 08/29/18 at 18:00 Gabapentin (Neurontin) 100 mg TID PO Last administered on 09/01/18 08:21; Admin Dose 100 MG; Start 08/29/18 at 21:00 Erythromycin (Erythromycin) 250 mg Q8 PO Last administered on 09/01/18 05:55; Admin Dose 250 MG; Start 08/29/18 at 22:00 Azithromycin 250 mg/Sodium Chloride 250 ml @ 250 mls/hr Q24H IVPB Last administered on 08/31/18 17:58; Admin Dose 250 MLS/HR; Start 08/29/18 at 17:00 Metoprolol Tartrate (Lopressor) 25 mg DAILY PO Last administered on 09/01/18 08:24; Admin Dose 25 MG; Start 08/29/18 at 16:00 Hydralazine HCl (Apresoline) 10 mg Q6H PRN IV ELEVATED BLOOD PRESSURE Last administered on 08/31/18 22:32; Admin Dose 10 MG; Start 08/29/18 at 19:00 Docusate Sodium (Colace) 100 mg BID PO Last administered on 09/01/18 08:21; Admin Dose 100 MG; Start 08/29/18 at 21:30 Polyethylene Glycol (Miralax) 17 gm DAILY PO Last administered on 09/01/18 08:22; Admin Dose 17 GM; Start 08/29/18 at 21:30 Insulin Glargine (Lantus) 20 units HS SC Last administered on 08/31/18 20:57; Admin Dose 20 UNITS; Start 08/30/18 at 21:00 ERICK MENDES September 01, 2018 11:57
--- NOTE | 2018-09-01 12:48 | PDOCDIS ---
Discharge Instructions CONDITION [id number] Patient Condition: [id number] Stable HOME CARE INSTRUCTIONS: [id number] Your diet recommendation is: [id number] Small frequent meals. FOLLOW UP/APPOINTMENTS Follow-up Plan Follow-up with on Wednesday to get EGD biopsy findings. George Coker MD Specialty Gastroenterology Comments Office Address [address] [id number] Office Follow up With outpatient liver doctor for hepatitis C treatment. Follow-up with primary care physician in 1 week FRANCE BUCKLEY NP September 01, 2018 12:48
[2018-09-01] MEDS ORDERED: CEFD300C2 PO (12:53)
[2018-09-01] MEDS ORDERED: GABA100C14 PO (12:53)
[2018-09-01] MEDS ORDERED: PANT40TA3 PO (12:53)
[2018-09-01] MEDS ORDERED: METO5TAB58 PO (12:56)
[2018-09-01] MEDS ORDERED: ERYT250C52 PO (12:56)
--- NOTE | 2018-09-01 13:05 | DS ---
Date/Time of Note Date/Time of Note DATE: 09/01/18 TIME: 12:58 Discharge Summary Admission/Discharge Info Admit Date/Time August 28, 2018 at 21:42 Discharge Date/Time Discharge Diagnosis Pneumonia, community-acquired. Treated Urinary tract infection with questionable emphysematous cystitis. Treated Abdominal pain/N/V, likely secondary to gastritis versus possible gastroparesis. Resolved. Untreated hepatitis C Acute kidney injury on CKD Chronic anemia DMII, poorly controlled Dyslipidemia Diastolic dysfunction Pulmonary hypertension Essential hypertension Patient Condition: Stable Consults DR.SAUCHOV dr.rABBANI BATEMAN Procedures 08 29 2018: CT abdomen and pelvis IMPRESSION: 1. Moderate bilateral pleural effusions with adjacent dense atelectasis. 2. Alveolar infiltration and edema within the lung bases bilaterally. 3. Air within the bladder and left intrarenal collecting system. Cystitis with emphysematous pyelonephritis is a possibility. Air introduced from recent prior instrumentation procedure is within the differential. 4. Scattered bilateral perinephric stranding and edema, chronic. Pyelonephritis could cause this appearance. 5. Scattered mild mesenteric edema, with mild layering pelvic free fluid. 6. Pancreatic atrophy with chronic pseudocyst of the tail of the pancreas. 7. Diffuse third spacing and edema throughout the subcutaneous tissues of the body. EGD 08/31/2018 Irregular GE junction. Rule out Graham's esophagus, biopsies obtained. Nonobstructing esophageal web estimated lumen more than 15 mm. Moderate gastritis. Rule out H. pylori infection, biopsies obtained. Melena Normocytic anemia -Hx of colonoscopy 2017- Colonoscopy all the way to the cecum. No colon neoplasm was identified. Small internal hemorrhoids. Hospital Course 52 yo F w/DM2,htn,dlp,hep C here multiple complaints including w/abd pain/n/v,generalized body ache,cough/sob/fevers... Patient was noted with poorly controlled diabetes for which she was treated with basal/bolus insulin. Patient could also have a gastroparesis making her symptoms worse as such she was treated with Reglan and erythromycin with significant improvement in symptoms with no further vomiting or abdominal pain. Patient was noted with a community-acquired pneumonia which responded on ceftria xone and azithromycin. She was also noted with urinary tract infection with E. coli system to fluoroquinolone as well as possible emphysematous cystitis. Patient was seen by urologist who recommended antibiotic continuation. Cultures were sensitive to third-generation cephalosporin for which she did not have any allergic reaction although she had allergy to penicillin documented. Patient eventually underwent EGD/colonoscopy 08/31/2018 showed irregular GE junction, rule out Graham esophagus. Patient was also noted with nonobstructing esophageal web estimated lumen more than 50 mm. She was also noted with mo derate gastritis. Gastroenterology recommended continuation of PPI. Patient's colonoscopy was unremarkable except for small internal hemorrhoids. Patient already has appointment for liver specialist for underlying untreated hepatitis C which is also attributing to her recurrent abdominal symptoms. She also had nephrology follow-up for underlying acute kidney injury on CKD. Renal function stabilized back to baseline. She was continued on home medication for underlying comorbidities. For hypertension, losartan was held and was treated with metoprolol. At this time, patient with no further symptoms and is very eager to be disch arged. She was instructed to follow-up with her hepatitis Dr. active give a call to gastroenterology office to find out pathology report which he verbalized understanding. New prescriptions transmitted electronically. Approximately 60 m spent on coordinating the discharge on this patient. Patient was seen in collaboration with Dr. Arroyo. Home Meds Active Scripts Metoclopramide* (Reglan*) 5 Mg Tablet, 5 MG PO AC MEALS for 7 Days, #21 TAB Prov:BUCKLEY,FRANCE V. TECHNICAL PROGRAMS MANAGER 09/01/18 Erythromycin* (Erythromycin* EC) 250 Mg Capsule.dr, 250 MG PO Q8 for 4 Days, #12 CAP Prov:BUCKLEY,FRANCE V. TECHNICAL PROGRAMS MANAGER 09/01/18 Pantoprazole* (Protonix*) 40 Mg Tablet., 40 MG PO BID for 30 Days, #60 TAB Prov:BUCKLEY,FRANCE V. TECHNICAL PROGRAMS MANAGER 09/01/18 Cefdinir (Cefdinir) 300 Mg Capsule, 300 MG PO BID for 10 Days, #20 CAP Prov:BUCKLEY,FRANCE V. TECHNICAL PROGRAMS MANAGER 09/01/18 Gabapentin* (Gabapentin*) 100 Mg Capsule, 100 MG PO TID, #90 CAP Prov:BUCKLEY,FARNCE V. TECHNICAL PROGRAMS MANAGER 09/01/18 Sennosides* (Senna Lax*) 8.6 Mg Tablet, 1 TAB PO DAILY, #30 TAB Prov:SHAVON QUEEN MD 01/31/17 Docusate Sodium* (Colace*) 100 Mg Capsule, 100 MG PO TID, #30 CAP Prov:SHAVON QUEEN MD 01/31/17 Ondansetron (Ondansetron Odt) 4 Mg Tab.rapdis, 4 MG PO Q6H PRN for NAUSEA AND/OR VOMITING, #10 TAB Prov:SHAVON QUEEN MD 01/31/17 Hydrocodone/Acetaminophen ([place] 10-325 Tablet) 1 Each Tablet, 1 TAB PO Q6H PRN for PAIN, #7 TAB Prov:SHAVON QUEEN MD 01/31/17 Reported Medications Insulin Glargine,Hum.rec.anlog (Basaglar Kwikpen U-100) 100 Unit/1 Ml Insuln.pen, 20 UNIT SC QHS 01/31/17 Metformin Hcl* (Metformin Hcl*) 1,000 Mg Tablet, 1000 MG PO WITH BREAKFAST DINNE, #60 TAB 01/31/17 Atorvastatin Calcium* (Atorvastatin Calcium*) 20 Mg Tablet, 20 MG PO QHS, #30 TAB 01/31/17 Losartan Potassium* (Losartan Potassium*) 50 Mg Tablet, 50 MG PO DAILY, TAB 01/31/17 Discontinued Reported Medications Gabapentin* (Gabapentin*) 300 Mg Capsule, 300 MG PO QHS, #60 CAP 01/31/17 Follow-up Plan Follow-up with on Wednesday to get EGD biopsy findings. George Coker MD Specialty Gastroenterology Comments Office Address [id number] [place] [id number] Office Follow up With outpatient liver doctor for hepatitis C treatment. Follow-up with primary care physician in 1 week Primary Care Provider [facility] Pending Labs Laboratory Tests Test 08/31/18 15:28 08/31/18 17:00 08/31/18 20:52 09/01/18 06:27 Bedside 128 141 155 Glucose mg/dL (70-220) mg/dL (70-220) mg/dL (70-220) White Blood 8.2 Count 10^3/ul (4.8-1 0.8) Red Blood 3.11 Count 10^6/ul (4.20- 5.40) Hemoglobin 8.4 g/dl (12.0-16. 0) Hematocrit 27.2 % (37.0-47.0) Mean 87.5 Corpuscular fl (82.0-101.0 Volume ) Mean 27.0 Corpuscular pg (29.0-33.0) Hemoglobin Mean 30.9 Corpuscular g/dl (32.0-37. Hemoglobin Conc 0) ent Red Cell 13.3 Distribution % (11.5-14.5) Width Platelet Count 261 10^3/UL (140-4 15) Mean Platelet 11.8 Volume fl (7.4-10.4) Immature 0.200 Granulocytes % % (0.001-0.429 ) Neutrophils % 63.1 % (39.0-77.0) Lymphocytes % 25.4 % (15.0-51.0) Monocytes % 7.9 % (0.0-11.0) Eosinophils % 2.8 % (0.0-7.0) Basophils % 0.6 % (0.0-2.0) Nucleated Red 0.0 Blood Cells % /100WBC (0.0-0 .0) Immature 0.020 Granulocytes # 10^3/ul (0.0-0 .031) Neutrophils # 5.2 10^3/ul (1.6-7 .5) Lymphocytes # 2.1 10^3/ul (0.8-2 .9) Monocytes # 0.7 10^3/ul (0.3-0 .9) Eosinophils # 0.2 10^3/ul (0.0-0 .5) Basophils # 0.1 10^3/ul (0.0-0 .1) Nucleated Red 0.0 Blood Cells # 10^3/ul (0.0-0 .0) Sodium Level 135 mmol/L (135-14 4) Potassium 4.0 Level mmol/L (3.5-5. 1) Chloride Level 108 mmol/L (97-110 ) Carbon Dioxide 21 Level mmol/L (21-31) Anion Gap 6 (5-13) Blood Urea 36 Nitrogen mg/dl (7-20) Creatinine 2.20 mg/dl (0.44-1. 00) Est Glomerular 23 Filtrat mL/min (>60) Rate mL/min Glucose Level 188 mg/dl (70-220) Calcium Level 8.2 mg/dl (8.4-10. 2) Phosphorus 4.9 Level mg/dl (2.5-4.9 ) Magnesium 2.2 Level mg/dl (1.7-2.5 ) Test 09/01/18 08:03 Bedside 210 Glucose mg/dL (70-220) FRANCE BUCKLEY NP September 01, 2018 13:05
== END 2018-09-01 15:00 | disposition home or self-care (01) | DRG 193 ==
LOC: E/R 19:23 → TEL 21:42 → PP2 08-31 22:13
PROVIDERS: ADMIT Internal Medicine; ATTEND Internal Medicine
PROC: 0DB68ZX Excision of Stomach, Via Natural or Artificial Opening Endoscopic, Diagnostic (ICD-10-PCS; 2018-08-31)
PROC: 0DB48ZX Excision of Esophagogastric Junction, Via Natural or Artificial Opening Endoscopic, Diagnostic (ICD-10-PCS; principal; 2018-08-31 18:30)
DX: J18.9 Pneumonia, unspecified organism (principal); Q39.4 Esophageal web; N39.0 Urinary tract infection, site not specified; N17.9 Acute kidney failure, unspecified; E87.1 Hypo-osmolality and hyponatremia; K92.1 Melena; E11.65 Type 2 diabetes mellitus with hyperglycemia; K29.70 Gastritis, unspecified, without bleeding; K31.84 Gastroparesis; B19.20 Unspecified viral hepatitis C without hepatic coma; I12.9 Hypertensive chronic kidney disease with stage 1 through stage 4 chronic kidney disease, or unspecified chronic kidney disease; N18.9 Chronic kidney disease, unspecified; D64.9 Anemia, unspecified; I27.20 Pulmonary hypertension, unspecified; K22.70 Barrett's esophagus without dysplasia; N30.80 Other cystitis without hematuria; K27.9 Peptic ulcer, site unspecified, unspecified as acute or chronic, without hemorrhage or perforation
CPT/HCPCS: 36415; 71045; 74176; 76775; 80048; 80053; 80061; 81001; 81003; 82043; 82270; 82436; 82595; 82728; 82962; 83036; 83540; 83605; 83690; 83735; 83880; 84100; 84133; 84155; 84300; 84484; 85014; 85018; 85025; 86021; 86038; 86160; 86226; 86430; 86704; 86709; 86803; 87086; 87340; 87400; 88305; 88312; 88313; 93005; 93306; 96374; 96375; 97161; C9113; J0360; J0456; J0696; J1644; J1815; J1885; J2405; J2765; J2916; J7030; J7050